=== PATIENT | male | born 1940 | race Caucasian/White ===

== ENCOUNTER 2020-01-10 12:13 | Inpatient (IN) | payer MEDICARE, SELFPAY ==
[2020-01-10] VITALS (40 sets, daily range): BP systolic 90–144; BP diastolic 56–92; PULSE 117–152; RESP 9–31; TEMP 36.5; O2SAT 90–96; BMI 32.5
--- NOTE | 2020-01-10 12:23 | ED_ITS ---
Entered by Cristiana Davis, acting as scribe for Josué Del Valle MD, [facility] [place] HPI - Chest Pain General: Chief Complaint: Chest Pain Stated Complaint: CP Time Seen by Provider: 01/10/20 12:23 Source: patient, family and RN notes reviewed Mode of arrival: ambulatory Limitations: no limitations History of Present Illness: HPI narrative: 79 yo male presents to ED with complaints of chest pain. The patient states he has no chest pain while lying down and it worsens when he stands up. He states he damn near passes out . He said it began mildly about a week ago and has been increasing since that time. 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 The patient had an IA 1 year ago and a stent was placed. He had an angiogram in August and when the dye was injected he went into a-fib and cardiac arrest, having to use the paddles. He said he had been doing fairly well until recently. He had a bad chest cold that he was treated for on Friday01.05.2020 and was diagnosed with pneumonia in L lower lung. He is still on Prednisone and Mucinex ER. The family states the patient has abdominal distention and has gained approximately 20 pounds in about 6 weeks. The patient states he has had difficulty passing gas and has constipation (his last BM 3 days ago). MD complaint: chest pain Pertinent past history: coronary artery disease, prior IA and other (ASHD, CHF, Ischemic Cardiomyopathy) Onset (ago): week(s) (1) Timing of current episode: episodic and increasing Prior episodes: Yes Onset: during exertion Pain location: substernal Pain radiation: none Severity: moderate Quality: sharp Relieving factors: rest Exacerbating factors: exertion Context: recent illness (pneumonia) Associated symptoms: Reports abdominal pain and leg edema; Deny dyspnea, fever(s) or palpitations Treatment prior to arrival: none Risk Factors: Coronary artery disease risk factors: hyperlipidemia and hypertension Thoracic aortic dissection risk factors: none Review of Systems General: Reports: 10 or more systems reviewed and unremarkable except in HPI and below Const: Denies: fever, chills or body aches Eyes: Reports: blind spots; Denies: change in vision or blurry vision ENMT: Denies: throat pain, enlarged tonsils, painful swallowing, hoarseness, mouth pain or swelling of lips/tongue Card: Reports: chest pain; Denies: palpitations, irregular heart rhythm, edema or swelling of feet/ankles Resp: Denies: shortness of breath, productive cough or non-productive cough GI: Reports: abdominal pain : Denies: flank pain, painful urination, urinary frequency, urinary urgency or urinary hesitancy Musc: Denies: neck pain, back pain or extremity swelling Skin/Breast: Denies: rash, itching or redness Neuro: Denies: headache, numbness in extremities or weakness in extremities Endo: Denies: excessive urination, excessive thirst or tired all the time PFSH ED PFSH: Medical History (Updated 01/11/20 @ 00:12 by Josué Del Valle MD, [facility] [place]) ASHD (arteriosclerotic heart disease) BPH (benign prostatic hyperplasia) Carotid stenosis, bilateral Chest pain Chewing tobacco use CHF (congestive heart failure) Chronic combined systolic and diastolic CHF Essential hypertension GERD (gastroesophageal reflux disease) Hyperlipidemia IBS (irritable bowel syndrome) Ischemic cardiomyopathy Paraphimosis SOB (shortness of breath) Spinal stenosis Stable angina Statin intolerance Surgical History S/P angioplasty with stent S/P cervical spinal fusion Family History Other Hypertension Social History Smoking and tobacco status: never smoked Alcohol intake: current Alcohol intake frequency: 0-2 Drinks per Day Alcohol type: beer Household members: spouse Marital status: service: No Current occupational status: retired Current gender identity: Male Physical Exam Const: COMMON NORMALS: no apparent distress, average body habitus, oriented x3, no limitations, healthy appearing, alert and well nourished HENMT: COMMON NORMALS: normocephalic, head/scalp atraumatic and moist oral mucous membranes HEAD & SCALP: normocephalic and atraumatic Eye: COMMON NORMALS: PERRL, EOMs intact bilaterally, conjunctivae normal and no scleral icterus CONJUNCTIVA: Yes conjunctivae normal PUPIL: Yes PERRL Neck/C-Spine: COMMON NORMALS: full ROM, supple, no meningeal signs, no JVD and no carotid bruits Chest: COMMONS NORMALS: inspection of chest normal and palpation of chest normal Resp: COMMON NORMALS: normal respiratory effort, no retractions, no use of accessory muscles, clear to auscultation bilaterally and percussion normal AUSCULTATION: clear to auscultation bilaterally PERCUSSION: percussion normal Cardio: COMMON NORMALS: no JVD, S1 normal heart sound, S2 normal heart sound, no gallops, no clicks, no murmurs, no rub and peripheral pulses 2+ throughout RATE: tachycardic RHYTHM: abnormal rhythm irregularly irregular HEART SOUNDS: S1 normal and S2 normal PERIPHERAL PULSES: pulses 2+ throughout GI: COMMON NORMALS: normal to inspection, nondistended, normoactive bowel sounds, soft to palpation, non-tender, no hepatosplenomegaly, no masses and no bruits PALPATION: Yes soft and Yes no hepatosplenomegaly : COMMON NORMALS: Yes no CVA tenderness BLADDER/KIDNEY EXAM: Yes no CVA tenderness Back/Pelvis: COMMON NORMALS: no CVA tenderness Extremity: COMMON NORMALS: normal to inspection, full ROM, normal capillary refill and no calf tenderness GENERAL: Yes edema (2+ bilaterally) Neuro: COMMON NORMALS: oriented x3 SENSORIUM/ORIENTATION: Yes alert MENINGEAL SIGNS: Yes no meningeal signs Skin: COMMON NORMALS: no rashes or lesions noted, no wounds, skin turgor normal, no jaundice, no petechiae and no mottling GENERAL SKIN EXAM: no rashes or lesions noted and turgor normal Course Consultations: Consultation #1: Dr. Nevarez, she kindly accepted the patient to her service. Vital Signs: Vital signs: Vital Signs Temperature 97.7 F 01/10/20 12:17 Pulse Rate 133 H 01/10/20 22:45 Respiratory Rate 01/10/20 20:45 Blood Pressure 90/58 01/10/20 20:45 Pulse Oximetry 92 01/10/20 22:45 MDM - Chest Pain MDM Narrative: Medical decision making narrative: 79-year-old gentleman who presented to the emergency department with chest pain. He also had some dizziness and generalized weakness. On evaluation he has A. fib with RVR, significantly elevated troponins. He needed to be on a diltiazem drip for control of his atrial fibrillation. He is admitted to the intensive care unit for further evaluation and management Medical Records: Attestation: I reviewed the patient's medical records. Lab Data: Attestation: I reviewed the patient's lab results. Labs: Lab Results 01/10/20 01/10/20 01/10/20 Range/Units 12:28 12:28 12:28 WBC 12.4 H (4.0-10.0) 10^3/ uL RBC 4.48 (4.1-5.3) 10^6/u L Hgb 13.4 (11.7-16.6) g/dL Hct 39.4 L (42.0-52.0) % MCV 87.9 (80-94) fL MCH 29.9 (28.0-34.0) pg MCHC 34.0 (30.0-36.0) g/dL RDW 12.5 (12.1-15.1) % Plt Count 221 (130-400) 10^3/c mm MPV 11.7 H (7.4-10.4) fL Neut % (Auto) 84.3 % Lymph % (Auto) 7.7 % Hernando % (Auto) 5.9 % Eos % (Auto) 0.1 % Baso % (Auto) 0.1 % Neut # (Auto) 10.5 H (1.8-7.7) 10^3/u L Lymph # (Auto) 1.0 (0.8-4.8) 10^3/u L Hernando # (Auto) 0.7 (0.2-0.9) 10^3/u L Eos # (Auto) 0.0 (0.0-0.8) 10^3/u L Baso # (Auto) 0.0 (0.0-0.1) 10^3/u L Nucleated RBC % (a uto) 0 % Nucleated RBCs # 0.0 /100WBC PT 16.10 H (10.5-13.3) SECO NDS INR 1.25 H (0.8-1.2) Sodium 129 L (136-145) mmol/L Potassium 4.5 (3.5-5.1) mmol/L Chloride 96 L (98-107) mmol/L Carbon Dioxide 22 (22-29) mmol/L Anion Gap 15.5 (5-19) BUN 29 H (8-23) mg/dL Creatinine 1.5 H (0.7-1.2) mg/dL Glucose 154 H (65-115) mg/dL Calcium 9.1 (8.5-10.5) mg/dL Total Bilirubin 0.7 (0.15-1.2) mg/dL AST 45 H (0-40) U/L ALT 91 H (0-41) U/L Alkaline Phosphata se 79 (40-130) IU/L Troponin T Baselin e (0-15) ng/mL Troponin T 120 Min nolvia (0-15) ng/mL [place] Troponin T (0-10) ABS# NT-Pro-B Natriuret Pep 6423 H (0-450) pg/mL Total Protein 5.8 L (6.6-8.7) g/dL Albumin 3.7 (3.5-5.2) g/dL Globulin 2.1 (1.3-4.6) g/dL Urine Color (Yellow) Urine Appearance (CLEAR) Urine pH (5-7) Ur Specific Gravit y (1.005-1.030) Urine Protein (Negative) Urine Glucose (UA) (Normal) Urine Ketones (Negative) Urine Occult Blood (Negative) Urine Nitrate (Negative) Urine Bilirubin (NEGATIVE) Urine Urobilinogen (Negative) mg/dL Ur Leukocyte Rebecca ase (Negative) 01/10/20 01/10/20 01/10/20 Range/Units 12:28 14:18 14:20 WBC (4.0-10.0) 10^3/ uL RBC (4.1-5.3) 10^6/u L Hgb (11.7-16.6) g/dL Hct (42.0-52.0) % MCV (80-94) fL MCH (28.0-34.0) pg MCHC (30.0-36.0) g/dL RDW (12.1-15.1) % Plt Count (130-400) 10^3/c mm MPV (7.4-10.4) fL Neut % (Auto) % Lymph % (Auto) % Hernando % (Auto) % Eos % (Auto) % Baso % (Auto) % Neut # (Auto) (1.8-7.7) 10^3/u L Lymph # (Auto) (0.8-4.8) 10^3/u L Hernando # (Auto) (0.2-0.9) 10^3/u L Eos # (Auto) (0.0-0.8) 10^3/u L Baso # (Auto) (0.0-0.1) 10^3/u L Nucleated RBC % (a uto) % Nucleated RBCs # /100WBC PT (10.5-13.3) SECO NDS INR (0.8-1.2) Sodium (136-145) mmol/L Potassium (3.5-5.1) mmol/L Chloride (98-107) mmol/L Carbon Dioxide (22-29) mmol/L Anion Gap (5-19) BUN (8-23) mg/dL Creatinine (0.7-1.2) mg/dL Glucose (65-115) mg/dL Calcium (8.5-10.5) mg/dL Total Bilirubin (0.15-1.2) mg/dL AST (0-40) U/L ALT (0-41) U/L Alkaline Phosphata se (40-130) IU/L Troponin T Baselin e 133 H* (0-15) ng/mL Troponin T 120 Min nolvia 119.0 H (0-15) ng/mL Delta Troponin T -14.0 L (0-10) ABS# NT-Pro-B Natriuret Pep (0-450) pg/mL Total Protein (6.6-8.7) g/dL Albumin (3.5-5.2) g/dL Globulin (1.3-4.6) g/dL Urine Color Yellow (Yellow) Urine Appearance Clear (CLEAR) Urine pH 5 (5-7) Ur Specific Gravit y 1.015 (1.005-1.030) Urine Protein Neg (Negative) Urine Glucose (UA) Norm (Normal) Urine Ketones Negative (Negative) Urine Occult Blood Neg (Negative) Urine Nitrate Negative (Negative) Urine Bilirubin Neg (NEGATIVE) Urine Urobilinogen Norm (Negative) mg/dL Ur Leukocyte Rebecca ase Negative (Negative) Imaging Data^: Other Xray: Radiologist's impression: [address] [place] [address] XRay Report Signed Patient: Luis Matos #: [id number] : [id number]#:[id number] Age/Sex: 79 / MADM Date: 01/10/20 Loc: ERRoom/Bed: Attending Dr: Ordering Provider/Ordering MD: Josué Del Valle MD, [facility] [place] Date of Service: 01/10/20 Procedure(s): XR abdomen 1V* [id number] Accession Number(s): [id number] Report Number: [id number] WS: [id number] XR abdomen 1V* [id number] REASON FOR EXAM: constipation FINDINGS: Fecal stasis in the right colon. And transverse colon. Degenerate changes of the lumbar spine. No air-fluid levels are seen. The pelvis shows degenerate changes in both hip joints. XR/XR abdomen 1V* [id number] IMPRESSION: Mild fecal stasis. Dictated By:Westley Be DO Signed By:Westley Be DOSigned Date/Time:01/10/20 1305 DD/ CXR: Radiologist's impression: [address] [address] XRay Report Signed Patient: Luis Matos #: [id number] : [id number]#:[id number] Age/Sex: 79 / MADM Date: 01/10/20 Loc: ERRoom/Bed: Attending Dr: Ordering Provider/Ordering MD: Josué Del Valle MD, [facility] [place] Date of Service: 01/10/20 Procedure(s): XR chest 1V portable [id number] Accession Number(s): [id number] Report Number: [id number] WS: [id number] XR chest 1V portable [id number] REASON FOR EXAM: chest pain FINDINGS: Cardiomegaly changes. The lung aaron are hyper aerated consistent with chronic obstructive pulmonary disease. No pneumonia, pleural effusion, pulmonary edema, are pneumothorax. No osseous abnormalities. The hilum and apices are normal. XR/XR chest 1V portable [id number] IMPRESSION: Cardiomegaly. Dictated By:Westley Be DO Signed By:Westley Be DOSigned Date/Time:01/10/20 1304 DD/ EKG Data^: EKG 1: Attestation: I personally reviewed and interpreted this EKG as follows: EKG interpretation date: 01/10/20 EKG interpretation time: 12:25 Prior EKG tracings: not available for review Interpretation: Today is 143. Incomplete right bundle branch block. No ST changesAtrial fibrillation with rapid ventricular response. EKG 2: Attestation: I personally reviewed and interpreted this EKG as follows: EKG interpretation date: 01/10/20 EKG interpretation time: 14:20 Interpretation: Unchanged from earlier today Discharge Plan Discharge Patient Disposition: Admitted As Inpatient Admit Provider: Najma Nevarez Clinical Impression: Atrial fibrillation with RVR, Chest pain, Elevated troponin Condition: Stable Interventions: ED Discharge Assessment Last Done: 01/10/20 15:24 Discharge Date/Time: 01/10/20 15:45 Coding Level of Care Code ED Roof Plumber for Chg Fwd Exam Comprehensive The documentation recorded by the Ryan frias Valerie R, accurately reflects the service I personally performed and the decisions made by Ivon fernández Adegoke I, MD, [facility] Jan 10, 2020 12:13
--- NOTE | 2020-01-10 12:39 | XR_ITS ---
WS: [id number] XR chest 1V portable [id number] REASON FOR EXAM: chest pain FINDINGS: Cardiomegaly changes. The lung aaron are hyper aerated consistent with chronic obstructive pulmonary disease. No pneumonia, pleural effusion, pulmonary edema, are pneumothorax. No osseous abnormalities. The hilum and apices are normal. XR/XR chest 1V portable [id number] IMPRESSION: Cardiomegaly.
--- NOTE | 2020-01-10 12:39 | ECG_ITS ---
Measurements Intervals [place] Rate: 143 P: [place]: 0 QRS: 139 QRSD: 108 T: 19 QT: 319 QTc: 493 ATRIAL FIBRILLATION WITH RAPID VENTRICULAR RESPONSE RIGHT AXIS DEVIATION [QRS AXIS > 100] LOW QRS VOLTAGE [QRS DEFLECTION < 0.5/1.0 mV IN LIMB/CHEST LEADS] INCOMPLETE RIGHT BUNDLE BRANCH BLOCK [90+ ms QRS DURATION, TERMINAL R IN V1/V2, 40+ ms S IN I/aVL/V4/V5/V6] ANTEROSEPTAL MYOCARDIAL INFARCTION , OF INDETERMINATE AGE [40+ ms Q WAVE IN V1- V4] Compared to ECG 01/08/2019 09:40:28 Right-axis deviation now present Low QRS voltage now present Sinus rhythm no longer present Atrial abnormality no longer present Myocardial infarct finding still present Electronically Signed On 01-10-2020 16:04:36 [employer] by Miguel Angel Donaldson M.D. [email or web address]
--- NOTE | 2020-01-10 12:39 | XR_ITS ---
WS: [id number] XR abdomen 1V* [id number] REASON FOR EXAM: constipation FINDINGS: Fecal stasis in the right colon. And transverse colon. Degenerate changes of the lumbar spine. No air-fluid levels are seen. The pelvis shows degenerate changes in both hip joints. XR/XR abdomen 1V* [id number] IMPRESSION: Mild fecal stasis.
[2020-01-10 12:54] LABS: Basophils % 0.1 %; Eosinophils % 0.1 %; Hematocrit 39.4 % (42.0-52.0); Hemoglobin 13.4 g/dL (11.7-16.6); Lymphocytes % 7.7 %; Mean Corpuscular Hemoglobin 29.9 pg (28.0-34.0); Mean Corpuscular Volume 87.9 fL (80-94); Mean Platelet Volume 11.7 fL (7.4-10.4); Monocytes # 0.7 10^3/uL (0.2-0.9); Monocytes % 5.9 %; Neutrophils # 10.5 10^3/uL (1.8-7.7); Neutrophils % 84.3 %; Nucleated Red Blood Cells % 0 %; Platelet Count 221 10^3/cmm (130-400); Red Blood Count 4.48 10^6/uL (4.1-5.3); Red Cell Distribution Width 12.5 % (12.1-15.1); White Blood Count 12.4 10^3/uL (4.0-10.0)
[2020-01-10 13:04] LABS: INR 1.25 (0.8-1.2)
[2020-01-10 13:14] LABS: Troponin(5th) Baseline 133 ng/mL (0-15)
--- NOTE | 2020-01-10 13:15 | PC.NURSE ---
baseline trop 133
[2020-01-10 13:20] LABS: Alanine Aminotransferase 91 U/L (0-41); Albumin Level 3.7 g/dL (3.5-5.2); Alkaline Phosphatase 79 IU/L (40-130); Anion Gap 15.5 (5-19); Aspartate Amino Transferase 45 U/L (0-40); Blood Urea Nitrogen 29 mg/dL (8-23); Calcium 9.1 mg/dL (8.5-10.5); Carbon Dioxide 22 mmol/L (22-29); Chloride 96 mmol/L (98-107); Globulin 2.1 g/dL (1.3-4.6); Glucose 154 mg/dL (65-115); NT Pro B Type Natriuretic Pept 6423 pg/mL (0-450); Potassium 4.5 mmol/L (3.5-5.1); Sodium 129 mmol/L (136-145); Total Bilirubin 0.7 mg/dL (0.15-1.2); Total Protein 5.8 g/dL (6.6-8.7)
[2020-01-10 14:34] LABS: Add Urine Microscopic? NO
--- NOTE | 2020-01-10 14:39 | ECG_ITS ---
Measurements Intervals [place] Rate: 138 P: [place]: 0 QRS: 207 QRSD: 120 T: 30 QT: 331 QTc: 503 ATRIAL FIBRILLATION WITH RAPID VENTRICULAR RESPONSE INDETERMINATE AXIS POSSIBLE RIGHT VENTRICULAR CONDUCTION DELAY [RSR (QR) IN V1/V2] ANTEROSEPTAL MYOCARDIAL INFARCTION , OF INDETERMINATE AGE [40+ ms Q WAVE IN V1-V4] Compared to ECG 01/08/2019 09:40:28 Indeterminate axis now present Sinus rhythm no longer present Incomplete right bundle-branch block no longer present Atrial abnormality no longer present Myocardial infarct finding still present Electronically Signed On 01-10-2020 16:07:10 INDUSTRIAL SAFETY AND HEALTH TECHNICIAN by Miguel Angel Donaldson M.D. [email or web address]
[2020-01-10 14:53] LABS: Bilirubin Urine Neg (NEGATIVE); Blood Urine Neg (Negative); Glucose Urine UA Norm (Normal); Ketones Urine Negative (Negative); Nitrate Urine Negative (Negative); Protein Urine Neg (Negative); Specific Gravity, Urine 1.015 (1.005-1.030); Urine Appearance Clear (CLEAR); Urine Color Yellow (Yellow); pH Urine 5 (5-7)
[2020-01-10 14:54] LABS: Leukocyte Esterase Urine Negative (Negative); Urobilinogen Urine Norm (Negative)
[2020-01-10] MEDS: morphine 4 mg/mL SDV 1 mL 2 MG IVP (15:14)
--- NOTE | 2020-01-10 15:31 | US_ITS ---
WS: [id number] US abdomen lmt fluid [id number] REASON FOR EXAM: distension FINDINGS: Generalized ascites is seen throughout the abdomen particularly in the diaphragmatic area o n the right and the left lower quadrant of the abdomen. US/US abdomen lmt fluid [id number] IMPRESSION: Generalized ascites.
--- NOTE | 2020-01-10 15:42 | P.HP_ITS ---
Providers/Chief Complaint Admitting Physician: Najma Nevarez MD Primary Care Provider: Johnnie Avendano Chief Complaint: Afib with RVR;Elevated trop;CHF Exacerbation History of Present Illness Luis Matos is a 79 year old male with PMHx of Chronic combined systolic and diastolic CHF, CAD status post stenting, COPD (not oxygen dependent), Carotid artery disease, Ischemic cardiomyopathy, Hyperlipidemia, CKD stage 2-3, HTN, BROWN (not on CPAP); presents from home accompanied by his for evaluation of worsening shortness of breath with minimal exertion, increased abdominal distention, lower extremity edema and chest discomfort for the past 2 days. Patient is very hard of hearing so at bedside provides much of his history. Collateral information obtained from review of medical record. Patient is not oxygen dependent at baseline, follows up with Dr. 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 Noted to have had a cath in September 2019 which was complicated by cardiac arrest when RCA was injected, patient developed V. fib, required CPR and defibrillation and subsequently developed A. fib. He did convert to normal sinus rhythm and is on metoprolol. He is on aspirin and Plavix but no other anticoagulation. states that approximately a week ago he was diagnosed with left-sided pneumonia and has been on Levaquin for treatment of this. Patient does not weigh daily but tries to keep track of his edema. He has been taking Lasix daily but every so often if he feels dry he will take Lasix every other day. Last dose of Lasix was taken yesterday. is his primary caregiver. Denies any recent falls; does not use a walker or cane for ambulation. has been sick with what sounds like URI symptoms. Last echo was in February 2019 showing an ejection fraction of 35 to 40% with grade 2 diastolic dysfunction. He was found to be in A. fib with RVR with heart rates in the 140s. Received a dose of Cardizem with continued RVR so has been started on a Cardizem drip currently running at 20 mg/hr. He has some leukocytosis with a white count of 12.4, sodium of 129, BUN of 29, creatinine of 1.5, BNP of over 6400, INR of 1.25, baseline troponin of 133; chest x-ray shows cardiomegaly with no other acute findings. He is being admitted for management of atrial fibrillation with RVR as well as acute CHF exacerbation. Review of Systems Const: Reports: change in appetite (decreased appetite) and fatigue; Denies: fever or chills Eyes: Denies: change in vision ENMT: Reports: other (chronically hard of hearing) Card: Reports: swelling of feet/ankles; Denies: chest pain or lightheadedness Resp: Reports: shortness of breath; Denies: productive cough, wheezing or coughing up blood GI: Reports: abdominal pain, constipation (chronic) and other (abdominal fullness); Denies: nausea, vomiting, vomiting blood or blood in stool : Reports: difficulty urinating (intermittently self catheterizes); Denies: painful urination or urinary frequency Musc: Denies: back pain Skin/Breast: Denies: rash Neuro: Reports: weakness in extremities; Denies: numbness in extremities or frequent falls Psych: Denies: anxiety Medications/Allergies Home Medications Medication Instructions Recorded Confirmed Last Taken Type Probiotic 2 cap PO DAILY 01/10/20 01/10/20 01/09/20 History levofloxacin 750 mg PO DAILY 01/10/20 01/10/20 01/10/20 07:30 History prednisone See Rx Instructions .ROUTE .COMPLEX 01/10/20 01/10/20 01/10/20 07:30 History 30 MG Allergies Allergy/AdvReac Type Severity Reaction Status Date / Time No Known Allergies Allergy Unverified 12/07/19 14:25 PFSH Acute PFSH: Medical History (Updated 01/10/20 @ 16:43 by Najma Nevarez MD) ASHD (arteriosclerotic heart disease) BPH (benign prostatic hyperplasia) Carotid stenosis, bilateral Chest pain Chewing tobacco use CHF (congestive heart failure) Chronic combined systolic and diastolic CHF Essential hypertension GERD (gastroesophageal reflux disease) Hyperlipidemia IBS (irritable bowel syndrome) Ischemic cardiomyopathy Paraphimosis SOB (shortness of breath) Spinal stenosis Stable angina Statin intolerance Surgical History S/P angioplasty with stent S/P cervical spinal fusion Family History Other Hypertension Social History Smoking and tobacco status: never smoked Alcohol intake: current Alcohol intake frequency: 0-2 Drinks per Day Alcohol type: beer Household members: spouse Marital status: service: No Current occupational status: retired Current gender identity: Male Vitals/I&O/Wt Last Vital Signs Temp 97.7 F 01/10/20 12:17 Pulse 135 H 01/10/20 15:24 Resp 26 H 01/10/20 15:24 BP 105/73 01/10/20 15:24 Pulse Ox 95 01/10/20 15:24 01/10/20 01/10/20 01/10/20 06:59 14:59 22:59 Intake Total 12.234 / Balance / Weight last 48 hrs Weight 108.862 kg Physical Exam Const: COMMON NORMALS: no apparent distress and oriented x3 GENERAL APPEARANCE: cooperative and comfortable NUTRITIONAL APPEARANCE: obese ORIENTATION/CONSCIOUSNESS: Yes awake HENMT: COMMON NORMALS: normocephalic, head/scalp atraumatic and moist oral mucous membranes HEAD & SCALP: normocephalic and atraumatic GENERAL EAR: hearing grossly impaired Laterality: diffuse Eye: COMMON NORMALS: PERRL, EOMs intact bilaterally and conjunctivae normal CONJUNCTIVA: Yes conjunctivae normal PUPIL: Yes PERRL Neck/C-Spine: COMMON NORMALS: full ROM GENERAL: Yes normal visual inspectio n and Yes trachea midline Resp: COMMON NORMALS: normal respiratory effort, no retractions and no use of accessory muscles EFFORT & INSPECTION: Yes able to speak in complete sentences, Yes symmetric chest movement and No tachypneic AUSCULTATION: crackles Cardio: COMMON NORMALS: S1 normal heart sound, S2 normal heart sound and no murmurs RATE: tachycardic RHYTHM: abnormal rhythm (atrial fibrillation with RVR) irregularly irregular HEART SOUNDS: S1 normal and S2 normal GI: COMMON NORMALS: soft to palpation and non-tender INSPECTION: Yes abdominal distension and Yes central obesity AUSCULTATION: Yes normoactive bowel sounds PALPATION: Yes soft, No tender, No guarding and No rigid Extremity: COMMON NORMALS: normal to inspection and full ROM GENERAL: Yes edema (1+ pitting edema of bilateral LE) Neuro: COMMON NORMALS: oriented x3, moves all extremities, no focal motor deficits and no sensory deficits noted Psych: COMMON NORMALS: mental status grossly normal, thought process normal, cooperative, affect normal and speech normal SPEECH: Yes normal speech THOUGHT PROCESS: normal thought process Skin: COMMON NORMALS: no rashes or lesions noted, no jaundice, no petechiae and no mottling GENERAL SKIN EXAM: no rashes or lesions noted Data : 01/10/20 12:28 01/10/20 12:28 A&P Assessment and plan (1) Atrial fibrillation with RVR: -Presented with A. fib with RVR with heart rates in the 140s; suspect that this was triggered by acute CHF exacerbation -From history and review of medical record seems to be paroxysmal -Currently on Cardizem drip, titrate as needed for optimal heart rate control -Resume metoprolol -Telemetry monitoring -Monitor vital signs -Echo done 02/2019: EF=35-40%, G2DD, mild pulmonary HTN (50), mild MR, mild- moderate TR Status: Acute Code(s): I48.91 - Unspecified atrial fibrillation (2) CHF (congestive heart failure): -Noted to have 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 as evidenced by increased shortness of breath, lower extremity edema, abdominal distention, elevated BNP -We will start on IV diuresis with Bumex given renal impairment -Daily weights, monitor ins and outs -Monitor vital signs -Monitor renal function and electrolytes with diuresis -Echo done 02/2019: EF=35-40%, G2DD, mild pulmonary HTN (50), mild MR, mild- moderate TR -troponin (baseline)-133; suspect demand ischemia secondary to CHF exacerbation Status: Acute Qualifiers: Heart failure type: combined systolic and diastolic Heart failure chronicity: acute on chronic Qualified Code(s): I50.43 - Acute on chronic combined systolic (congestive) and diastolic (congestive) heart failure Code(s): I50.9 - Heart failure, unspecified (3) BPH (benign prostatic hyperplasia): -Has known history of BPH with intermittent self-catheterization though has not needed to do this in quite some time -Place Webber catheter for accurate ins and outs given need for aggressive IV diuresis; assess daily for removal -Resume Flomax and finasteride Status: Acute Qualifiers: Lower urinary tract symptom presence: symptoms present Lower urinary tract symptom detail: urinary retention Qualified Code(s): N40.1 - Benign prostatic hyperplasia with lower urinary tract symptoms; R33.8 - Other retention of urine Code(s): N40.0 - Benign prostatic hyperplasia without lower urinary tract symptoms Additional A&P Information -HTN -hx of CAD s/p stenting, ischemic cardiomyopathy; resume ASA, Plavix -COPD, not oxygen dependent -Bilateral carotid artery stenosis -Hyperlipidemia; intolerant of statins -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; baseline Cr around 1-1.3; avoid IVF due to acute CHF exacerbation -GERD; on PPI -recently diagnosed pneumonia; has been on Levaquin; noted QTc prolongation, hold this -fall precautions, up with assist -cardiac diet as tolerated -GI ppx with PPI -DVT ppx with heparin -Dispo: home, is his primary caregiver -Code status: FULL code -ICU admit as CSU overflow Attestations Medical Necessity Statement*: Luis Rico Matos's hospital stay will require greater than 2 midnights for management of acute CHF exacerbation requiring IV diuresis as well as treatment of A. fib with RVR, currently requiring Cardizem drip. Time Spent in Patient Care: Greater than 35 minutes (>than 50% of time spent in counselling and/or direct pt care on unit) . Coding Level of Care Code Acute Newspaper Photographer for Chg Fwd Diagnoses Atrial fibrillation with RVR I48.91 CHF (congestive heart failure) I50.43 Heart failure type: combined systolic and diastolic Heart failure chronicity: acute on chronic BPH (benign prostatic hyperplasia) N40.1; R33.8 Lower urinary tract symptom presence: symptoms present Lower urinary tract symptom detail: urinary retention
[2020-01-10] MEDS: heparin 5,000 unit/mL INJ 1 mL 5000 UNIT SUBCUT (16:28)
[2020-01-10] MEDS: bumetanide 0.25 mg/mL SDV 10 mL 1 MG IV (16:28)
[2020-01-10] MEDS: lactobacillus 1 Tablet 1 TAB PO (17:04)
[2020-01-10] MEDS: metoprolol tartrate 50 mg Tablet PO (17:05)
--- NOTE | 2020-01-10 18:39 | ECG_ITS ---
Measurements Intervals [place] Rate: 135 P: HI: 0 QRS: 112 QRSD: 105 T: 22 QT: 291 QTc: 437 ATRIAL FIBRILLATION WITH RAPID VENTRICULAR RESPONSE MARKED RIGHT AXIS DEVIATION [QRS AXIS > 100] LOW QRS VOLTAGE [QRS DEFLECTION < 0.5/1.0 mV IN LIMB/CHEST LEADS] INCOMPLETE RIGHT BUNDLE BRANCH BLOCK [90+ ms QRS DURATION, TERMINAL R IN V1/V2, 40+ ms S IN I/aVL/V4/V5/V6] ANTEROSEPTAL MYOCARDIAL INFARCTION, PROBABLY RECENT Compared to ECG 01/10/2020 14:20:02 Right-axis deviation now present Low QRS voltage now present Incomplete right bundle-branch block now present Indeterminate axis no longer present Myocardial infarct finding still present Electronically Signed On 01-11-2020 18:05:59 VOCATIONAL TRAINING DIRECTOR by Dory Ramirez M.D. [id number]
[2020-01-10 19:06] LABS: Troponin 5 6HR 112.1 ng/mL (0-15); Troponin 5 6HR Delta -20.9 ng/L (0-12)
[2020-01-10] MEDS: BuSPIRONE 5 mg Tablet PO (21:21)
[2020-01-10] MEDS: atorvastatin 40 mg Tablet PO (21:21)
[2020-01-11] VITALS (62 sets, daily range): BP systolic 90–161; BP diastolic 62–107; PULSE 76–172; RESP 10–32; TEMP 36.6; O2SAT 89–97; BMI 32.5
[2020-01-11] MEDS: digoxin 250 mcg/ml INJ 2 mL IVP (01:22)
[2020-01-11 04:56] LABS: Basophils % 0.2 %; Eosinophils % 0.1 %; Hematocrit 39.9 % (42.0-52.0); Hemoglobin 13.5 g/dL (11.7-16.6); Lymphocytes # 1.6 10^3/uL (0.8-4.8); Lymphocytes % 14.3 %; Mean Corpuscular HGB Conc 33.8 g/dL (30.0-36.0); Mean Corpuscular Hemoglobin 30.9 pg (28.0-34.0); Mean Corpuscular Volume 91.3 fL (80-94); Mean Platelet Volume 11.6 fL (7.4-10.4); Monocytes # 1.2 10^3/uL (0.2-0.9); Neutrophils # 8.1 10^3/uL (1.8-7.7); Neutrophils % 72.4 %; Nucleated Red Blood Cells % 0 %; Platelet Count 175 10^3/cmm (130-400); Red Blood Count 4.37 10^6/uL (4.1-5.3); Red Cell Distribution Width 12.5 % (12.1-15.1); White Blood Count 11.2 10^3/uL (4.0-10.0)
--- NOTE | 2020-01-11 05:04 | ECG_ITS ---
Measurements Intervals [place] Rate: 102 P: [place]: 0 QRS: 122 QRSD: 109 T: 52 QT: 339 QTc: 442 ATRIAL FIBRILLATION WITH RAPID VENTRICULAR RESPONSE MARKED RIGHT AXIS DEVIATION [QRS AXIS > 100] LOW QRS VOLTAGE [QRS DEFLECTION < 0.5/1.0 mV IN LIMB/CHEST LEADS] INCOMPLETE RIGHT BUNDLE BRANCH BLOCK [90+ ms QRS DURATION, TERMINAL R IN V1/V2, 40+ ms S IN I/aVL/V4/V5/V6] ANTEROSEPTAL MYOCARDIAL INFARCTION [40+ ms Q WAVE IN V1-V4], OF INDETERMINATE AGE Compared to ECG 01/10/2020 14:20:02 Right-axis deviation now present Low QRS voltage now present Incomplete right bundle-branch block now present Indeterminate axis no longer present Myocardial infarct finding still present Electronically Signed On 01-12-2020 17:28:56 SENIOR JAVA PROGRAMMER by Dory Ramirez M.D. [id number]
[2020-01-11 05:18] LABS: Anion Gap 16.2 (5-19); Blood Urea Nitrogen 29 mg/dL (8-23); Calcium 8.7 mg/dL (8.5-10.5); Carbon Dioxide 24 mmol/L (22-29); Chloride 98 mmol/L (98-107); Glucose 112 mg/dL (65-115); Osmolality Calculated 276 mOsm/kg (285-295); Potassium 4.2 mmol/L (3.5-5.1); Sodium 134 mmol/L (136-145)
--- NOTE | 2020-01-11 05:24 | P.EN_ITS ---
Event Note Event Note: Brandon puentes called at 5 am. Patient was overnight with A fib with RVR with HR 140s-150s while on cardizem infusion @ 20. BP 90/60 at 1 am, previously also ordered for metoprolol 50mg BID, received digoxin 250mcg at 1 am. At 5 am, brandon puentes called after noted to be in pulseless arrest. Telemetry rhy thm appears c/w Torsades. Had chest compressions x 3 min, epinephrine x 1, shock @ 120J x 1, Amiodarone 150 once pulse restored. Had ROSC at 3 min. Alert, awake and oriented post event. C/o central chest pain (new) after CPR. 12 lead EKG with A fib with HR 90s. BP 160/85mmhg. Amiodarone infusion started. Intially was planned to intubate but held off after patient noted to be alert, awake and comfortable. Cardiology consult placed- discussed with Dr. Ramirez Check CMP and Mag CXR to r/o rib fracture updated. Event Notes Attestations Time Spent in Patient Care: 16 - 35 minutes
[2020-01-11] MEDS: heparin 5,000 unit/mL INJ 1 mL 5000 UNIT SUBCUT (05:49)
[2020-01-11 06:26] LABS: Magnesium 2.5 mg/dL (1.7-2.3)
--- NOTE | 2020-01-11 06:50 | ECG_ITS ---
Measurements Intervals [place] Rate: 84 P: 48 SC: 169 QRS: 106 QRSD: 109 T: -3 QT: 400 QTc: 473 SINUS RHYTHM WITH FREQUENT SUPRAVENTRICULAR PREMATURE COMPLEXES MARKED RIGHT AXIS DEVIATION [QRS AXIS > 100] LOW QRS VOLTAGE [QRS DEFLECTION < 0.5/1.0 mV IN LIMB/CHEST LEADS] INCOMPLETE RIGHT BUNDLE BRANCH BLOCK ANTEROSEPTAL MYOCARDIAL INFARCTION, OF INDETERMINATE AGE Compared to ECG 01/10/2020 14:20:02 Right-axis deviation now present Low QRS voltage now present Incomplete right bundle-branch block now present Atrial fibrillation no longer present Indeterminate axis no longer present Myocardial infarct finding still present Electronically Signed On 01-11-2020 16:58:43 CLAIM APPROVER by Dory Ramirez M.D. [id number]
[2020-01-11] MEDS: acetaminophen 325 mg Tablet 650 MG PO ×3 (07:27→20:13)
--- NOTE | 2020-01-11 08:12 | P.CONIM_ITS ---
Providers/Reason For Consult Consulting Physican/Specialty*: Dr. Ramirez, cardiology Reason for Consult*: Status post cardiac arrest Attending Physician: Najma Nevarez MD Primary Care Provider: Johnnie Avendano History of Present Illness History of Present Illness Luis Matos is a 79 year old man with history of coronary artery disease. 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 In December of 2018 he underwent stenting of ostial LAD. He did not have disease of the left main, ramus, circumflex or right coronary artery. He underwent coronary angiography via the right radial artery in Sep 2019 for persistent symptoms. The left main, ramus and circumflex were again normal. There was restenosis of the LAD stent just at the ostium of the LAD. Upon injection of the right coronary artery the patient had a ventricular fibrillation arrest. He underwent CPR and then shocking with episcopal of a rhythm. Initially he was in atrial fibrillation.No intervention was done. He had a complicated post code recovery requiring pressors as well as altered mental status. Later on in the hospitalization he converted back to sinus rhythm. After a very long discussion with the patient and his regarding single-vessel CABG/high risk LAD intervention, it was decided to try medical therapy first. His other medical problems include Chronic combined systolic and diastolic CHF (left ventricular ejection fraction of 35 to 40%), COPD (not oxygen dependent), Hyperlipidemia, CKD stage 2-3, HTN, BROWN (not on CPAP). He presented from home with CC of worsening shortness of breath, increased abdominal distention, lower extremity edema and weight gain (218-240 lb). Approximately a week ago he was diagnosed with left-sided pneumonia and was treated with Levaquin. His symptoms started shortly thereafter. His is his primary caregiver. He was found to be in A. fib with RVR with heart rates in the 140s. He had one episode of chest discomfort for which he took 1 nitroglycerin about 2 days back. He was admitted for management of atrial fibrillation with rapid ventricular response and decompensated congestive heart failure. After hospitalization he was started on Cardizem drip and later on at around 1 AM he received to 50 mcg of digoxin. At around 4:50 earlier this morning patient went into ventricular fibrillation and HYACINTH ALDANA was called. He was coded for about 2 minutes and received shock with 120 J (from what it appears with no change in his rhythm), epinephrine x1, amiodarone 150?1. He also received 2 g of magnesium as the initial rhythm was thought to be torsades. There was return of spontaneous circulation and patient is back to his baseline. He was started on amiodarone drip and I have been called to assist in further management. At the time of evaluation patient complains of leg cramps and retrosternal chest discomfort (post code) which is reproducible on palpation. Review of Systems Const: Denies: fever, chills or fatigue Eyes: Denies: change in vision ENMT: Denies: throat pain, bleeding gums or nose bleeds Card: Denies: palpitations, lightheadedness, syncope or pre-syncope Resp: Denies: productive cough or non-productive cough GI: Denies: abdominal pain, nausea, vomiting, vomiting blood, diarrhea, constipation or blood in stool : Denies: painful urination or blood in urine Musc: Denies: back pain, joint pain or muscle weakness Skin/Breast: Denies: rash Neuro: Denies: dizziness Psych: Denies: anxiety or depression Endo: Denies: tired all the time Alexis/Lymph: Denies: easy bruising or easy bleeding Meds/Allergies Home Medications and Allergies Home Medications Medication Instructions Recorded Confirmed Type amlodipine 5 mg tablet 10 mg PO DAILY tab 12/07/19 01/10/20 History aspirin 81 mg tablet,delayed 81 mg PO DAILY tab 12/07/19 01/10/20 History release buspirone 5 mg tablet 5 mg PO TID 12/07/19 01/10/20 History clopidogrel 75 mg tablet 75 mg PO DAILY tab 12/07/19 01/10/20 History cyclobenzaprine 10 mg tablet 10 mg PO TID PRN 12/07/19 01/10/20 History enalapril maleate 20 mg tablet 20 mg PO DAILY tab 12/07/19 01/10/20 History furosemide 40 mg tablet 40 mg PO QAM 12/07/19 01/10/20 History isosorbide mononitrate 30 mg 30 mg PO QAM 12/07/19 01/10/20 History tablet,extended release 24 hr metoprolol tartrate 50 mg tablet 50 mg PO BID 12/07/19 01/10/20 History nitroglycerin 0.4 mg sublingual 0.4 mg SUBLINGUAL Q5M PRN 12/07/19 01/10/20 History tablet pantoprazole 40 mg tablet,delayed 40 mg PO QAM 12/07/19 01/10/20 History release simvastatin 40 mg tablet 40 mg PO DAILY tab 12/07/19 01/10/20 History tamsulosin 0.4 mg capsule 0.4 mg PO BID cap 12/07/19 01/10/20 History Probiotic 2 cap PO DAILY 01/10/20 01/10/20 History levofloxacin 750 mg PO DAILY 01/10/20 01/10/20 History prednisone See Rx Instructions .ROUTE .COMPLEX 01/10/20 01/10/20 History Allergies Allergy/AdvReac Type Severity Reaction Status Date / Time No Known Allergies Allergy Unverified 12/07/19 14:25 Current Medications Current Medications Generic Name Dose Route Start Last Admin Trade Name Freq PRN Reason Stop Dose Admin Acetaminophen 650 mg 01/10/20 16:09 01/11/20 07:27 Tylenol PO 650 mg Q6H PRN Administration Mild/Mod Pain Or Temp >/= 101 Atorvastatin Calcium 40 mg 01/10/20 21:00 01/10/20 21:21 Lipitor PO 40 mg BEDTIME BEATRIZ Administration Bumetanide 1 mg 01/10/20 16:09 01/11/20 05:49 Bumex IV Not Given Q12H BEATRIZ Buspirone HCl 5 mg 01/10/20 21:00 01/10/20 21:21 Buspar PO 5 mg TID BEATRIZ Administration Heparin Sodium (Beef Lung) 5,000 unit 01/10/20 16:09 01/11/20 05:49 Heparin SUBCUT 5,000 unit Q12H BEATRIZ Administration Amiodarone HCl 900 mg/ 518 mls @ 0 mls/hr 01/11/20 05:15 01/11/20 05:23 Dextrose/ IV Miscellaneous IV 1 mg/min Supplies .Q0M BEATRIZ 34.5 mls/hr Administration Protocol Per Protocol Lactobacillus Acidophilus 1 tab 01/10/20 18:00 01/10/20 17:04 Floranex PO 1 tab BID BEATRIZ Administration Metoprolol Tartrate 50 mg 01/10/20 18:00 01/10/20 17:05 Lopressor PO 50 mg BID BEATRIZ Administration PFSH Acute PFSH: Medical History (Updated 01/11/20 @ 11:19 by Dory Ramirez MD) ASHD (arteriosclerotic heart disease) BPH (benign prostatic hyperplasia) Carotid stenosis, bilateral Chest pain Chewing tobacco use CHF (congestive heart failure) Chronic combined systolic and diastolic CHF Essential hypertension GERD (gastroesophageal reflux disease) Hyperlipidemia IBS (irritable bowel syndrome) Ischemic cardiomyopathy Paraphimosis SOB (shortness of breath) Spinal stenosis Stable angina Statin intolerance Surgical History S/P angioplasty with stent S/P cervical spinal fusion Family History Other Hypertension Social History Smoking and tobacco status: never smoked Alcohol intake: current Alcohol intake frequency: 0-2 Drinks per Day Alcohol type: beer Household members: spouse Marital status: service: No Current occupational status: retired Current gender identity: Male Vitals/I&O/Wt Last Vital Signs Temp 97.7 F 01/10/20 12:17 Pulse 142 H 01/11/20 04:30 Resp 21 H 01/11/20 04:30 BP 137/83 01/11/20 04:30 Pulse Ox 94 01/11/20 04:30 01/10/20 01/11/20 01/11/20 22:59 06:59 14:59 Intake Total 711 / 723.234 125 / 848.234 Output Total 3000 / 3000 Balance 711 / 723.234 -2875 / -2151.766 Weight last 48 hrs Weight 240 lb Weight 240 lb Physical Exam Const: COMMON NORMALS: no apparent distress, average body habitus, oriented x3, alert and well nourished GENERAL APPEARANCE: cooperative, comfortable, well kempt and well developed ORIENTATION/CONSCIOUSNESS: Yes oriented to person, Yes oriented to place and Yes oriented to time HENMT: COMMON NORMALS: normocephalic, head/scalp atraumatic, external nose normal and moist oral mucous membranes HEAD & SCALP: normocephalic and atraumatic NOSE: external nose normal Eye: COMMON NORMALS: PERRL, EOMs intact bilaterally and conjunctivae normal CONJUNCTIVA: Yes conjunctivae normal SCLERA: sclerae normal PUPIL: Yes PERRL Neck/C-Spine: COMMON NORMALS: supple, no JVD and thyroid normal; negative for no carotid bruits THYROID: thyroid normal Lymph: LYMPHATIC: No no lymphadenopathy noted Chest: COMMONS NORMALS: inspection of chest normal CHEST: Yes symmetrical chest wall rise Resp: COMMON NORMALS: normal respiratory effort, no use of accessory muscles, clear to auscultation bilaterally and percussion normal EFFORT & INSPECTION: Yes able to speak in complete sentences and No tachypneic AUSCULTATION: clear to auscultation bilaterally, no crackles, no rales, no rhonchi and no wheezes PERCUSSION: percussion normal Cardio: COMMON NORMALS: no JVD, regular rate, regular rhythm, S1 normal heart sound, S2 normal heart sound and peripheral pulses 2+ throughout; negative for no gallops and negative for no clicks JUGULAR VENOUS DISTENTION: no JVD PALPATION: normal PMI, no heave, no palpable S3, no palpable S4 and no thrill RATE: regular rate RHYTHM: regular rhythm HEART SOUNDS: S1 normal, S2 normal, no click, no gallops and no murmurs BRUITS: no abdominal aortic bruits and no carotid bruits PERIPHERAL PULSES: pulses 2+ throughout GI: COMMON NORMALS: non-tender PALPATION: Yes firm and Yes ascites present PERCUSSION: dullness to percussion RECTAL EXAM: Yes deferred Neuro: COMMON NORMALS: oriented x3 and no focal motor deficits SENSORIUM/ORIENTATION: Yes alert, Yes oriented to person, Yes oriented to place and Yes oriented to time CRANIAL NERVES: Yes CN normal except as noted Psych: COMMON NORMALS: thought process normal APPEARANCE: Yes well kempt MOOD & AFFECT: Yes euthymic mood THOUGHT PROCESS: normal thought process THOUGHT CONTENT: Yes normal thought content ATTENTION/CONCENTRATION: Yes attention grossly intact JUDGEMENT: judgment good Urinary Catheter Management^: Webber Latex Free: Cath Placed During This Visit: yes Urethral Indwelling: Yes Reason for Continuing Indwelling Catheter: Accurate Measurement of Urinary Output in Critically Ill Patients Urinary Catheter Date of Insertion: 01/10/20 Urinary Catheter Time of Insertion: 16:40 Data Other Data: Other data: Laboratory Tests 01/10/20 01/10/20 01/10/20 12:28 12:28 14:18 Magnesium Total Bilirubin 0.7 AST 45 H ALT 91 H Alkaline Phosphata se 79 Troponin I 6 Hour Troponin T Baselin e 133 H* Troponin T 120 Min nolvia 119.0 H NT-Pro-B Natriuret Pep 6423 H Total Protein 5.8 L Albumin 3.7 Globulin 2.1 01/10/20 01/11/20 18:32 04:10 Magnesium 2.5 H Total Bilirubin AST ALT Alkaline Phosphata se Troponin I 6 Hour 112.1 H Troponin T Baselin e Troponin T 120 Min nolvia NT-Pro-B Natriuret Pep Total Protein Albumin Globulin Coronary angiogram (09/2019) Diagnostic Findings Patient has known coronary artery disease with a previous stent to the ostial LAD. He has been having symptoms that are atypical however he is an exceedingly poor historian. His states that he is just not himself and she feels like something is going on. He declined stress testing. Angiography was performed from the right wrist. Left main is normal. The circumflex is normal. There is a ramus intermedius artery which reveals a 20% stenosis in the ostium and the 30% stenosis slightly further down in the proximal portion. There is in-stent restenosis of the ostial LAD. Restenosis was about 95 or 99%. There is good flow in the artery however. The right coronary artery is normal. Patient had ventricular fibrillation upon injection of the right coronary artery. Please see the complication section for details. Left ventriculography was not performed. The procedure was stopped after the ventricular fibrillation episode. Patient's told me that he has been confused and somewhat combative over the last several weeks to months. Seems like his memory is failing and that he is becoming confused more often. Indeed he was combative upon awakening from the ventricular fibrillation event. He seems very confused and disoriented at this time. Conclusions 99% restenosis of the ostial LAD stent. Ventricular fibrillation upon injecting the right coronary artery. No left ventriculogram done. No intervention done. Recommendations Review films and consider intervention versus one-vessel bypass. Chest x-ray on 10 January 2023 showed cardiomegaly otherwise normal. Abdominal x-ray with mild fecal stasis Abdominal ultrasound with ascites. Echo (10 March 2019) CONCLUSIONS Left ventricle is normal in size. There is thinning of the apex. The apex is akinetic and the anterior wall is severely hypokinetic. The suggest prior infarct in the distribution of the LAD. The overall ejection fraction is 35-40%. Grade 2 diastolic dysfunction. Normal right ventricular size and systolic function. Mild pulmonary hypertension, RVSP 49.7 mmHg. Mildly increased left atrial size. Structurally normal mitral valve. Mild mitral valve regurgitation. Trivial pericardial effusion. Echocardiographic findings suggest a non hemodynamically significant pericardial effusion. There are no prior echocardiogram studies to compare. A&P Assessment and plan (1) Cardiac arrest with ventricular fibrillation: Patient has history of ventricular fibrillation during coronary angiogram last year. He was found to have in-stent restenosis in ostial LAD that could not be fixed as patient had ventricular fibrillation during RCA injection. -Given this episode of V. fib arrest requiring short CPR, I think he would need intervention of his LAD lesion. -Continue aspirin, Plavix and therapeutic Lovenox. -Continue amiodarone drip -Case was discussed with Dr. Donaldson and his plan is to proceed with coronary angiogram with high risk intervention of the LAD lesion. -Keep potassium more than 4 and magnesium more than 2. Status: Acute Code(s): I46.9 - Cardiac arrest, cause unspecified; I49.01 - Ventricular fibrillation (2) Atrial fibrillation with RVR: Paroxysmal atrial fibrillation with rapid ventricular response. Patient has converted back to sinus rhythm with amiodarone drip. -Continue amiodarone drip and Lovenox. -Would need to be transitioned to DOAC on discharge. Status: Acute Code(s): I48.91 - Unspecified atrial fibrillation (3) ASHD (arteriosclerotic heart disease): Single-vessel CAD. Status: Acute Code(s): I25.10 - Atherosclerotic heart disease of [place] coronary artery without angina pectoris (4) CHF (congestive heart failure): Status: Acute Qualifiers: Heart failure chronicity: acute on chronic Heart failure type: combined systolic and diastolic Qualified Code(s): I50.43 - Acute on chronic combined systolic (congestive) and diastolic (congestive) heart failure Code(s): I50.9 - Heart failure, unspecified (5) Hyperlipidemia: Status: Acute Code(s): E78.5 - Hyperlipidemia, unspecified (6) Essential hypertension: Status: Acute Code(s): I10 - Essential (primary) hypertension Coding Level of Care Code Acute Mobile Sales Assistant for [facility] Fwd Exam Comprehensive Diagnoses Cardiac arrest with ventricular fibrillation I46.9; I49.01 Atrial fibrillation with RVR I48.91 ASHD (arteriosclerotic heart disease) I25.10 CHF (congestive heart failure) I50.43 Heart failure chronicity: acute on chronic Heart failure type: combined systolic and diastolic Hyperlipidemia E78.5 Essential hypertension I10
[2020-01-11] MEDS: isosorbide mononitrate ER 30 mg Tablet PO (09:42)
[2020-01-11] MEDS: amlodipine 10 mg Tablet PO (09:42)
[2020-01-11] MEDS: tamsulosin 0.4 mg Capsule PO (09:42)
[2020-01-11] MEDS: pantoprazole DR 40 mg Tablet PO (09:42)
[2020-01-11] MEDS: enoxaparin 120 mg/0.8 mL Syringe 105 MG SUBCUT (09:42)
[2020-01-11] MEDS: metoprolol tartrate 25 mg Tablet PO ×2 (09:42→17:42)
[2020-01-11] MEDS: clopidogrel 75 mg Tablet PO (09:42)
[2020-01-11] MEDS: aspirin 81 mg Chew Tablet PO (09:42)
[2020-01-11] MEDS: lactobacillus 1 Tablet 1 TAB PO ×2 (09:43→17:42)
[2020-01-11] MEDS: finasteride 5 mg Tablet PO (09:43)
[2020-01-11] MEDS: BuSPIRONE 5 mg Tablet PO ×3 (09:43→20:13)
--- NOTE | 2020-01-11 10:34 | PC.CHAP ---
Pastoral Care Encounter/Spiritual Assessment Type of Contact [] Declined brands editor visit [] Patient/Family/Request visit [] Outpatient visit [] Follow-up visit [] Physician referral [] Code/Alert [x] Routine visit [] Staff referral [] Actively dying [] Patient sleeping [] Family support [] [] Out of room [] Palliative care [] [] Receiving care in room [] Pre-surgical visit [] Trauma [] Long length of stay [x] ICU visit [] Other: Relational/Emotional Strength [x] Patient feels connected with others/family/visitors/staff [] Distress [] Loneliness/isolation [] Abandonment Spirituality of Patient [x] Person of Riya [] Attends Synagogue of their Riya [x] Believes in Prayer [x] Reads Bible or Sabianism materials [] There are Spiritual issues to be addressed Denial Management Representative Interventions [x] Prayer [x] Active listening [x] Non-anxious presence [x] Spiritual/emotional support [] Crisis/trauma care [x] Spiritual counseling [] Bereavement support [] Provided bereavement packet [] Provided Bible/devotional materials [] Provided toy/stuffed animal, coloring book to patient or family member [] Provided Communion [] Anointing/[place] [] Salvation [] Completed spiritual assessment [] Other: Impact on Illness or Injury [] Angry [] Fearful [] Anxious [] Often cries [] Exhaustion [] Unable to work [] Unable to attend restorationism [] Unable to walk/stand [] Unable to read [] Unable to drive [] Unable to eat/drink [] Unable to sleep [] Unable to be with family [] Patient intubated [x] Other: n/a Summary Patient is awaiting the placement of a stint. Time spent with patient 10 minutes
--- NOTE | 2020-01-11 11:20 | PC.OT ---
OT note. Will hold OT this date as pt had event this morning and has cath procedure planned for tomorrow morning. Discussed with nursing and will hold until tomorrow afternoon.
--- NOTE | 2020-01-11 12:00 | XR_ITS ---
WS: [id number] XR chest 1V portable [id number] REASON FOR EXAM: post CPR FINDINGS: Cardiomegaly is again noted the chest is similar to January 10, 2020. There is no definite pulmonary edema seen no pneumonia. No pneumothorax is noted. XR/XR chest 1V portable [id number] IMPRESSION: Gross cardiomegaly.
--- NOTE | 2020-01-11 12:01 | PM.PN ---
Subjective Subjective: Interval history: Reviewed overnight documentation including CODE BLUE around 5 AM when patient was found to have ventricular fibrillation. ROSC achieved after CPR, epinephrine, shocked x1, dose of amiodarone and magnesium after approximately 3 minutes. Currently on amiodarone drip. Heart rate much better controlled in the 80s. Reviewed a.m. labs. Ordered chest x-ray post CPR due to patient's complaints of chest pain. Will discuss case further with cardiology. Had 3000 mL urine output overnight. Patient seen and examined, at bedside, sitting in chair by bedside having his lunch, complains of soreness in his chest area likely due to CPR. Otherwise no complaints. Seems to be in good spirits. Aware of plan for cath tomorrow. Medications: Reviewed: Yes Medication Review Details: Current Medications Generic Name Dose Route Start Last Admin Trade Name Freq PRN Reason Stop Dose Admin Acetaminophen 650 mg 01/10/20 16:09 01/11/20 07:27 Tylenol PO 650 mg Q6H PRN Administration Mild/Mod Pain Or Temp >/= 101 Amlodipine Besylat e 10 mg 01/11/20 09:00 01/11/20 09:42 Norvasc PO 10 mg DAILY BEATRIZ Administration Aspirin 81 mg 01/11/20 09:00 01/11/20 09:42 Aspirin Chewable PO 81 mg DAILY BEATRIZ Administration Atorvastatin Calci um 40 mg 01/10/20 21:00 01/10/20 21:21 Lipitor PO 40 mg BEDTIME BEATRIZ Administration Bumetanide 1 mg 01/10/20 16:09 01/11/20 05:49 Bumex IV Not Given Q12H BEATRIZ Buspirone HCl 5 mg 01/10/20 21:00 01/11/20 09:43 Buspar PO 5 mg TID BEATRIZ Administration Clopidogrel Bisulf ate 75 mg 01/11/20 09:00 01/11/20 09:42 Plavix PO 75 mg DAILY BEATRIZ Administration Finasteride 5 mg 01/11/20 09:00 01/11/20 09:43 Proscar PO 5 mg DAILY BEATRIZ Administration Amiodarone HCl 900 mg/ 518 mls @ 0 mls/h r 01/11/20 05:15 01/11/20 11:20 Dextrose/ IV Misce llaneous IV 0.5 mg/min Supplies .Q0M BEATRIZ 17.3 mls/hr Titration Protocol Per Protocol Isosorbide Mononit rate 30 mg 01/11/20 09:00 01/11/20 09:42 Imdur PO 30 mg DAILY BEATRIZ Administration Lactobacillus Acid ophilus 1 tab 01/10/20 18:00 01/11/20 09:43 Floranex PO 1 tab BID BEATRIZ Administration Metoprolol Tartrat e 25 mg 01/11/20 09:00 01/11/20 09:42 Lopressor PO 25 mg BID BEATRIZ Administration Pantoprazole Sodiu m 40 mg 01/11/20 09:00 01/11/20 09:42 Protonix PO 40 mg DAILY BEATRIZ Administration Tamsulosin HCl 0.4 mg 01/11/20 09:00 01/11/20 09:42 Flomax PO 0.4 mg DAILY BEATRIZ Administration Vitals/I&O/Wt Last Vital Signs Temp 97.7 F 01/10/20 12:17 Pulse 86 01/11/20 08:45 Resp 17 01/11/20 08:45 BP 141/77 01/11/20 08:45 Pulse Ox 90 01/11/20 08:45 01/10/20 01/11/20 01/11/20 22:59 06:59 14:59 Intake Total 711 / 723.234 125 / 848.234 205.275 / 205.275 Output Total 3000 / 3000 Balance 711 / 723.234 -2875 / -2151.766 205.275 / 205.275 Weight last 48 hrs Weight 108.862 kg Weight 108.862 kg Physical Exam Const: COMMON NORMALS: no apparent distress and oriented x3 GENERAL APPEARANCE: cooperative and comfortable NUTRITIONAL APPEARANCE: obese ORIENTATION/CONSCIOUSNESS: Yes awake HENMT: COMMON NORMALS: normocephalic, head/scalp atraumatic and moist oral mucous membranes HEAD & SCALP: normocephalic and atraumatic GENERAL EAR: hearing grossly impaired Laterality: diffuse Eye: COMMON NORMALS: PERRL, EOMs intact bilaterally and conjunctivae normal CONJUNCTIVA: Yes conjunctivae normal PUPIL: Yes PERRL Neck/C-Spine: COMMON NORMALS: full ROM GENERAL: Yes normal visual inspection and Yes trachea midline Resp: COMMON NORMALS: normal respiratory effort, no retractions and no use of accessory muscles EFFORT & INSPECTION: Yes able to speak in complete sentences, Yes symmetric chest movement and No tachypneic AUSCULTATION: crackles Cardio: COMMON NORMALS: regular rate, S1 normal heart sound, S2 normal heart sound and no murmurs RATE: regular rate RHYTHM: abnormal rhythm (atrial fibrillation with RVR) irregularly irregular HEART SOUNDS: S1 normal and S2 normal GI: COMMON NORMALS: soft to palpation and non-tender INSPECTION: Yes abdominal distension and Yes central obesity AUSCULTATION: Yes normoactive bowel sounds PALPATION: Yes soft, No tender, No guarding and No rigid Extremity: COMMON NORMALS: normal to inspection and full ROM GENERAL: Yes edema (1+ pitting edema of bilateral LE) Neuro: COMMON NORMALS: oriented x3, moves all extremities, no focal motor deficits and no sensory deficits noted Psych: COMMON NORMALS: mental status grossly normal, thought process normal, cooperative, affect normal and speech normal SPEECH: Yes normal speech THOUGHT PROCESS: normal thought process Skin: COMMON NORMALS: no rashes or lesions noted, no jaundice, no petechiae and no mottling GENERAL SKIN EXAM: no rashes or lesions noted Urinary Catheter Management^: Webber Latex Free: Cath Placed During This Visit: yes Urethral Indwelling: Yes Reason for Continuing Indwelling Catheter: Accurate Measurement of Urinary Output in Critically Ill Patients Urinary Catheter Date of Insertion: 01/10/20 Urinary Catheter Time of Insertion: 16:40 Data : 01/11/20 04:10 01/11/20 04:10 A&P Assessment and plan (1) Cardiac arrest with ventricular fibrillation: -Went into cardiac arrest with ventricular fibrillation earlier this morning around 5 AM; ROSC achieved after 3 minutes of CPR, dose of epinephrine, 120 J shock, dose of amiodarone 150 and dose of magnesium due to concern for possible torsades -Currently on amiodarone drip with much better heart rate control -Cardiology on board, consult appreciated; cath tomorrow -Troponins noted with positive delta over 20 Status: Acute Code(s): I46.9 - Cardiac arrest, cause unspecified; I49.01 - Ventricular fibrillation (2) Atrial fibrillation with RVR: -Presented with A. fib with RVR with heart rates in the 140s; suspect that this was triggered by acute CHF exacerbation -From history and review of medical record seems to be paroxysmal -off Cardizem drip, now on amiodarone drip; see the dose of digoxin 250 mcg earlier this morning -on metoprolol -Telemetry monitoring -VSS; continue to monitor -Echo done 02/2019: EF=35-40%, G2DD, mild pulmonary HTN (50), mild MR, mild-moderate TR -Will need to discuss initiation of anticoagulation after coronary angiogram Status: Acute Code(s): I48.91 - Unspecified atrial fibrillation (3) CHF (congestive heart failure): -Noted to have 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 as evidenced by increased shortness of breath, lower extremity edema, abdominal distention, elevated BNP -on IV diuresis with Bumex; so far has diuresed 1.9 L -Daily weights, monitor ins and outs -VSS: continue to monitor -continue to monitor renal function and electrolytes with diuresis -Echo done 02/2019: EF=35-40%, G2DD, mild pulmonary HTN (50), mild MR, mild-moderate TR -troponin (baseline)-133; suspect demand ischemia secondary to CHF exacerbation Status: Acute Qualifiers: Heart failure chronicity: acute on chronic Heart failure type: combined systolic and diastolic Qualified Code(s): I50.43 - Acute on chronic combined systolic (congestive) and diastolic (congestive) heart failure Code(s): I50.9 - Heart failure, unspecified (4) BPH (benign prostatic hyperplasia): -Has known history of BPH with intermittent self-catheterization though has not needed to do this in quite some time -has Webber catheter for accurate ins and outs given need for aggressive IV diuresis; assess daily for removal -continue Flomax and finasteride Status: Acute Qualifiers: Lower urinary tract symptom detail: urinary retention Lower urinary tract symptom presence: symptoms present Qualified Code(s): N40.1 - Benign prostatic hyperplasia with lower urinary tract symptoms; R33.8 - Other retention of urine Code(s): N40.0 - Benign prostatic hyperplasia without lower urinary tract symptoms Additional A&P Information -HTN -hx of CAD s/p stenting, ischemic cardiomyopathy; on ASA, Plavix -COPD, not oxygen dependent -Bilateral carotid artery stenosis -Hyperlipidemia; intolerant of statins -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; baseline Cr around 1-1.3; avoid IVF due to acute CHF exacerbation -GERD; on PPI -recently diagnosed pneumonia; has been on Levaquin; noted QTc prolongation, hold this -fall precautions, up with assist -cardiac diet as tolerated -GI ppx with PPI -DVT ppx with heparin -Dispo: home, is his primary caregiver -Code status: FULL code -ICU care given cardiac arrest earlier this morning Attestations Medical Necessity Statement*: Patient requires hospitalization for continued management of atrial fibrillation, status post cardiac arrest earlier this morning and continued diuresis secondary to acute CHF exacerbation. Time Spent in Patient Care: Greater than 35 minutes (>than 50% of time spent in counselling and/or direct pt care on unit). Coding Level of Care Code Acute Sheriff'S Detective for g Fwd Exam Comprehensive Diagnoses Cardiac arrest with ventricular fibrillation I46.9; I49.01 Atrial fibrillation with RVR I48.91 CHF (congestive heart failure) I50.43 Heart failure chronicity: acute on chronic Heart failure type: combined systolic and diastolic BPH (benign prostatic hyperplasia) N40.1; R33.8 Lower urinary tract symptom detail: urinary retention Lower urinary tract symptom presence: symptoms present
--- NOTE | 2020-01-11 12:09 | PM.MISC ---
Miscellaneous Note Note: Luis has the noted medical problems. He was having discomfort last fall and angiography revealed in-stent restenosis of an ostial LAD stent. This would be a very tricky intervention. When I injected his right coronary artery, which is normal, he had a ventricular fibrillation arrest. It took 24 to 48 hours for him to awaken properly from this. He had a period of anoxia. He has a complicated history otherwise which is delineated in the notes. Apparently had a recent pneumonia and came in with atrial fibrillation on this occasion. This is not his first episode of atrial fibrillation. This morning he had an episode of ventricular fibrillation which on the monitor look like torsades. He has been seen by Dr. Ramirez. I have spoken to the patient and his . We will make an attempt tomorrow morning at 7:00 to intervene on the ostial LAD. This will be tricky and risky. I will have Dr. Reddy available. The procedure will be done from the right common femoral artery because the last procedure was done from the right radial artery and I could not seat the catheter in the left main coronary artery very well. This procedure will require good guide support.
--- NOTE | 2020-01-11 14:54 | PC.CHAP ---
Pastoral Care Encounter/Spiritual Assessment Type of Contact [] Declined fund development manager visit [] Patient/Family/Request visit [] Outpatient visit [] Follow-up visit [] Physician referral [] Code/Alert [] Routine visit [] Staff referral [] Actively dying [] Patient sleeping [] Family support [] [] Out of room [] Palliative care [] [] Receiving care in room [] Pre-surgical visit [] Trauma [] Long length of stay [x] ICU visit [] Other: Relational/Emotional Strength [x] Patient feels connected with others/family/visitors/staff [] Distress [] Loneliness/isolation [] Abandonment Spirituality of Patient [x] Person of Riya [] Attends Mosque of their Riya [x] Believes in Prayer [] Reads Bible or Muslim materials [] There are Spiritual issues to be addressed 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 Interventions [x] Prayer [x] Active listening [x] Non-anxious presence [x] Spiritual/emotional support [] Crisis/trauma care [] Spiritual counseling [] Bereavement support [] Provided bereavement packet [] Provided Bible/devotional materials [] Provided toy/stuffed animal, coloring book to patient or family member [] Provided Communion [x] Anointing/[place] [] Salvation [] Completed spiritual assessment [] Other: Impact on Illness or Injury [] Angry [] Fearful [x] Anxious [] Often cries [] Exhaustion [] Unable to work [] Unable to attend yazdanism [] Unable to walk/stand [] Unable to read [] Unable to drive [] Unable to eat/drink [] Unable to sleep [] Unable to be with family [] Patient intubated [] Other: Summary Had prayer and talk about famiily Time spent with patient 5
[2020-01-11] MEDS: bumetanide 0.25 mg/mL SDV 10 mL 1 MG IV (16:51)
[2020-01-11] MEDS: enoxaparin 120 mg/0.8 mL Syringe 110 MG SUBCUT (20:13)
[2020-01-11] MEDS: atorvastatin 40 mg Tablet PO (20:13)
[2020-01-12] VITALS (57 sets, daily range): BP systolic 94–156; BP diastolic 69–101; PULSE 78–96; RESP 12–29; TEMP 36.4–36.8; O2SAT 87–97
[2020-01-12] MEDS: bumetanide 0.25 mg/mL SDV 10 mL 1 MG IV (04:19)
[2020-01-12 05:03] LABS: Basophils % 0.3 %; Eosinophils % 0.2 %; Hematocrit 43.3 % (42.0-52.0); Hemoglobin 14.5 g/dL (11.7-16.6); Lymphocytes # 1.1 10^3/uL (0.8-4.8); Lymphocytes % 10.1 %; Mean Corpuscular HGB Conc 33.5 g/dL (30.0-36.0); Mean Corpuscular Hemoglobin 30.7 pg (28.0-34.0); Mean Corpuscular Volume 91.5 fL (80-94); Monocytes # 0.9 10^3/uL (0.2-0.9); Monocytes % 8.6 %; Neutrophils # 8.5 10^3/uL (1.8-7.7); Neutrophils % 78.8 %; Nucleated Red Blood Cells % 0 %; Platelet Count 176 10^3/cmm (130-400); Red Blood Count 4.73 10^6/uL (4.1-5.3); Red Cell Distribution Width 12.5 % (12.1-15.1); White Blood Count 10.8 10^3/uL (4.0-10.0)
[2020-01-12 05:28] LABS: Anion Gap 14.9 (5-19); Blood Urea Nitrogen 22 mg/dL (8-23); Calcium 8.8 mg/dL (8.5-10.5); Carbon Dioxide 21 mmol/L (22-29); Chloride 105 mmol/L (98-107); Glucose 103 mg/dL (65-115); Osmolality Calculated 281 mOsm/kg (285-295); Potassium 3.9 mmol/L (3.5-5.1); Sodium 137 mmol/L (136-145)
[2020-01-12] MEDS: sodium chloride 0.9% 1,000 ML 50 ML IV (06:11)
[2020-01-12] MEDS: diphenhydrAMINE 50 mg Capsule PO (06:11)
--- NOTE | 2020-01-12 06:33 | XACV_ITS ---
Exam Room: [facility] Ht: 183 cm Wt: 109 kg BSA: 2.38 m2 Gender: Male : 1940 Any Known Allergies: No known allergies Exam Priority: Routine Procedure(s): Procedure Description: Diagnostic procedure Procedure Description: PCI procedure Procedure Description: Left Heart Catheterization Procedure Description: Drug Eluting Coronary Stent Procedure Description: PTCA Procedure Description: Coronary Angiography Diagnostic Cath Status: Urgent Diagnostic Findings Patient with previously placed LAD stent just beyond the ostium. Restenosis of the stent and of the ostial LAD. Patient presented with atrial fibrillation then ventricular fibrillation. Angiography and angioplasty indicated to restent the LAD. There is a 99% stenosis of the ostial LAD and some restenosis of the proximal stent with ROHIT I flow. The remainder of the vessels were not injected. Patient has a 20% eccentric stenosis of the ramus intermedius and a normal circumflex. The right coronary artery was not injected. PCI Status: Urgent PCI LVEF Assessed: No PCI Indication: NSTE - ACS Interventional Findings Noncompliant balloon was used to first angioplasty the area. This was followed by a 2.75 x 15 mm drug-eluting stent. Careful attention was given to placing the proximal portion of the stent in the ostium of the LAD just barely inside the left main coronary artery so as not to embarrass the flow in the ramus intermedius artery or the circumflex. Decision for PCI with Surgical Consult: No PCI for Multi-vessel Disease: No Conclusions Angioplasty and stenting of the ostial LAD with good results. Interventional RX Recommendation: medical therapy and/or counseling Diagnostic RX Recommendation: medical therapy and/or counseling Anticoagulation: Heparin Pressures Phase:Rest AO : 107 mmHg / 73 mmHg ( 88 mmHg ) @ 1:11:00 AM 103 mmHg / 76 mmHg ( 87 mmHg ) @ 1:16:00 AM Clinical Evaluation EBL: 5mL-10mL Procedural Details Procedure Consent Obtained. Pre-Procedure Time Out. Identified patient by full name and date of as verbalized by the patient/guarantor. Does the consent match the physician's order: Yes. Accurate & Complete Informed Consent: Yes. Inpatient/Outpatient History & Physical on Chart: Yes. If H&P is completed, is and addenduem needed: N/A; If yes, is the addendum complete: N/A. Visualize and Verify Site with Patient/Guarantor: N/A. Relevant Radiology Images available: Yes. Pre-op teaching completed and patient verbalized understanding. The risks, benefits, and alternatives of sedation and/or procedure were discussed by physician. The patient agrees to continue. Procedure started. Correct patient, site and procedure confirmed by cath team. PERRLA. Strong, equal hand plant guard bilaterally. Lungs clear x 5 lobes. IV Site on Arrival: 20 gauge in the left anticubital. IV Site on Arrival: 20 gauge in the right hand. IV Fluids: 0.9% NaCl at KVO. 100 mL infused prior to cardiac cath technician. Pre Procedural Pulses: bilateral dorsalis pedis was 2+. Pre Procedural Pulses: bilateral radial was 2+. Oxygen started at 2liters/min via nasal canula. bilateral groins was prepped with chloroprep then draped in the usual sterile fashion. Physician notified. Baseline sample Acquired. HR: 101 BPM. Physician arrived. Equipment: 6F - Femoral. Physician scrubbed in. Immediate Pre-Procedure Time Out. Correct Patient: Yes; Correct Procedure: Yes; Correct Site: Yes; Correct Patient Position: Yes; Correct Supplies: Yes; Dried Flammable Prep: Yes; Blood Products Available: No;. Lidocaine 1% infiltrated to the right groin. Arterial access obtained. 6 japanese XB 3 guide catheter was inserted over the wire. Multiple views taken of left coronary artery. Greer guidewire was advanced through the guide catheter to lesion in the prox LAD. Inflation number : 1 Tabatha CADE EUPHORA RX [id number] BALLOON was prepped and advanced across the Prox LAD , then inflated to 12 MICHELLE for 0:09 seconds. Inflation number: 2 The MDT NC EUPHORA RX [id number] BALLOON was reinflated across the Prox LAD, to 12 MICHELLE for 0:13 seconds. Balloon out. Results checked. Inflation Number : 3 A MDT R SHEFALI 2.75X15 HIEN -Lot Number#[id number] exp 09-13-2021 was prepped and advanced across the Prox LAD. The stent was deployed at 12 MICHELLE for 0:31 seconds. Stent balloon and wire out. Guide catheter out. A Suture was successful obtaining hemostatsis at the Right Femoral artery insertion site. Sheath(s) sutured into position with 2-0 silk and sterile 4x4's and Op-site applied over the site. No oozing or signs and symptoms of hematoma noted. Arterial sheath flushed and connected to tranducer and pressure bag with heparinized saline. Post Procedure: Pulses reassessed and unchanged. PERRLA. Strong, equal hand plant guard bilaterally. No VTE prophylaxis required. Medication's Wasted: Lidocaine 1% = 10 mL. Total IV fluids: 50 mL. Fluoro: 4:07. Contrast type used: Visipaque 320 mgI/mL, 200 mL bottle. [id number]. Complications: none. Estimated blood loss: 5mL-10mL. Procedure completed. Patient transferred by bed to ICU. PCI Indication: NSTE/ACS. Post-op diagnosis: unstable angina. Vital chart was stopped. [facility] Clinical Fraility Score: 5: Mildly Frail. Police Pilot Indications: ACS <= 24 hours. Chest Pain Symptom Assessment: Typical Angina Symptoms. Cardiovascular Instability: No. Site: Right Femoral artery Sheath Size: 6 Fr Hemostasis Method: Suture Hemostasis Success: Successful Procedure Medications Start: 7:04 AM Stop: 7:04 AM Medication: Versed Amount: 1 mg Route: I.V. Start: 7:04 AM Stop: 7:04 AM Medication: Fentanyl Amount: 50 mcg Route: I.V. Start: 7:06 AM Stop: 7:06 AM Medication: Versed Amount: 1 mg Route: I.V. Start: 7:06 AM Stop: 7:06 AM Medication: Fentanyl Amount: 50 mcg Route: I.V. Start: 7:14 AM Stop: 7:14 AM Medication: Heparin Amount: 5000 units Route: I.V. I, the attending physician, have reviewed and verified all procedure medications. Yes, all medications given per verbal order History/Risk Factors Hypertension: Yes Dyslipidemia: Yes Peripheral Arterial Disease (PAD): No Myocardial Infarction (MS): No Obesity: Yes Renal Disease: Yes Tobacco Use: Never Prior Interventions PCI: Yes CABG: No Valve Surgery: No Date of PCI: 01/07/2019 Report Signatures Finalized by:Dr. Miguel Angel Donaldson MD on 01/12/2020 7:49:30 AM
--- NOTE | 2020-01-12 07:08 | PC.NURSE ---
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
[2020-01-12] MEDS: pantoprazole DR 40 mg Tablet PO (09:04)
[2020-01-12] MEDS: aspirin 81 mg Chew Tablet PO (09:04)
[2020-01-12] MEDS: finasteride 5 mg Tablet PO (09:04)
[2020-01-12] MEDS: isosorbide mononitrate ER 30 mg Tablet PO (09:04)
[2020-01-12] MEDS: amlodipine 10 mg Tablet PO (09:04)
[2020-01-12] MEDS: clopidogrel 75 mg Tablet PO (09:05)
[2020-01-12] MEDS: BuSPIRONE 5 mg Tablet PO ×3 (09:05→21:49)
[2020-01-12] MEDS: metoprolol tartrate 25 mg Tablet PO ×2 (09:05→17:28)
[2020-01-12] MEDS: lactobacillus 1 Tablet 1 TAB PO ×2 (09:05→17:29)
[2020-01-12] MEDS: tamsulosin 0.4 mg Capsule PO (09:05)
[2020-01-12] MEDS: sodium chloride 0.9% 1,000 ML 100 ML IV ×2 (09:10→17:34)
--- NOTE | 2020-01-12 09:54 | P.PN_ITS ---
Subjective Subjective: Interval history: Cath earlier this AM, had successful angioplasty and stenting of the ostial LAD. Currently hemodynamically stable, a.m. labs noted, improving renal function. Overnight had very robust urine output of 4850 mL, overall fluid balance of -8.4 L. Patient seen and examined, at bedside, doing well status post cath. Medications: Reviewed: Yes Medication Review Details: Current Medications Generic Name Dose Route Start Last Admin Trade Name Freq PRN Reason Stop Dose Admin Acetaminophen 650 mg 01/10/20 16:09 01/11/20 20:13 Tylenol PO 650 mg Q6H PRN Administration Mild/Mod Pain Or Temp >/= 101 Amlodipine Besylat e 10 mg 01/11/20 09:00 01/12/20 09:04 Norvasc PO 10 mg DAILY BEATRIZ Administration Aspirin 81 mg 01/11/20 09:00 01/12/20 09:04 Aspirin Chewable PO 81 mg DAILY BEATRIZ Administration Atorvastatin Calci um 40 mg 01/10/20 21:00 01/11/20 20:13 Lipitor PO 40 mg BEDTIME BEATRIZ Administration Bumetanide 1 mg 01/10/20 16:09 01/12/20 04:19 Bumex IV 1 mg Q12H BEATRIZ Administration Buspirone HCl 5 mg 01/10/20 21:00 01/12/20 09:05 Buspar PO 5 mg TID BEATRIZ Administration Clopidogrel Bisulf ate 75 mg 01/11/20 09:00 01/12/20 09:05 Plavix PO 75 mg DAILY BEATRIZ Administration Enalapril Maleate 20 mg 01/12/20 09:00 01/12/20 09:04 Vasotec PO 20 mg DAILY BEATRIZ Administration Finasteride 5 mg 01/11/20 09:00 01/12/20 09:04 Proscar PO 5 mg DAILY BEATRIZ Administration Amiodarone HCl 900 mg/ 518 mls @ 0 mls/h r 01/11/20 05:15 01/12/20 06:11 Dextrose/ IV Misce llaneous IV 0.5 mg/min Supplies .Q0M BEATRIZ 17.3 mls/hr Administration Protocol Per Protocol Sodium Chloride 1,000 mls @ 50 ml s/hr 01/12/20 06:15 01/12/20 06:11 Sodium Chloride 0.9% IV 01/13/20 02:14 50 mls/hr .Q20H ONE Administration Sodium Chloride 1,000 mls @ 100 m ls/hr 01/12/20 08:10 01/12/20 09:10 Sodium Chloride 0.9% IV 100 mls/hr .Q10H BEATRIZ Administration Isosorbide Mononit rate 30 mg 01/11/20 09:00 01/12/20 09:04 Imdur PO 30 mg DAILY BEATRIZ Administration Lactobacillus Acid ophilus 1 tab 01/10/20 18:00 01/12/20 09:05 Floranex PO 1 tab BID BEATRIZ Administration Lactobacillus Acid ophilus 2 tab 01/12/20 09:00 01/12/20 09:16 Floranex PO Not Given DAILY BEATRIZ Metoprolol Tartrat e 25 mg 01/11/20 09:00 01/12/20 09:05 Lopressor PO 25 mg BID BEATRIZ Administration Pantoprazole Sodiu m 40 mg 01/11/20 09:00 01/12/20 09:04 Protonix PO 40 mg DAILY BEATRIZ Administration Tamsulosin HCl 0.4 mg 01/11/20 09:00 01/12/20 09:05 Flomax PO 0.4 mg DAILY BEATRIZ Administration Vitals/I&O/Wt Last Vital Signs Temp 98.3 F 01/12/20 04:00 Pulse 89 01/12/20 09:45 Resp 17 01/12/20 09:45 BP 144/82 01/12/20 09:45 Pulse Ox 94 01/12/20 09:45 01/11/20 01/12/20 01/12/20 22:59 06:59 14:59 Intake Total 440 / 645.275 312.725 / 958.000 Output Total 1100 / 2400 4850 / 7250 Balance -660 / -1754.725 -4537.275 / -6292.000 Weight last 48 hrs Weight 102.285 kg Weight 108.862 kg Weight 108.862 kg Physical Exam Const: COMMON NORMALS: no apparent distress and oriented x3 GENERAL APPEARANCE: cooperative and comfortable NUTRITIONAL APPEARANCE: obese ORIENTATION/CONSCIOUSNESS: Yes awake HENMT: COMMON NORMALS: normocephalic, head/scalp atraumatic and moist oral mucous membranes HEAD & SCALP: normocephalic and atraumatic GENERAL EAR: hearing grossly impaired Laterality: diffuse Eye: COMMON NORMALS: PERRL, EOMs intact bilaterally and conjunctivae normal CONJUNCTIVA: Yes conjunctivae normal PUPIL: Yes PERRL Neck/C-Spine: COMMON NORMALS: full ROM GENERAL: Yes normal visual inspection and Yes trachea midline Resp: COMMON NORMALS: normal respiratory effort, no retractions and no use of accessory muscles EFFORT & INSPECTION: Yes able to speak in complete sentences, Yes symmetric chest movement and No tachypneic AUSCULTATION: c rackles Cardio: COMMON NORMALS: regular rate, S1 normal heart sound, S2 normal heart sound and no murmurs RATE: regular rate RHYTHM: abnormal rhythm (atrial fibrillation with RVR) irregularly irregular HEART SOUNDS: S1 normal and S2 normal GI: COMMON NORMALS: soft to palpation and non-tender INSPECTION: Yes abdominal distension (decreased) and Yes central obesity AUSCULTATION: Yes n ormoactive bowel sounds PALPATION: Yes soft, No tender, No guarding and No ri gid : BLADDER/KIDNEY EXAM: Yes catheter in place Catheter type (Male): urethral Extremity: COMMON NORMALS: normal to inspection, full ROM and no clubbing, cyanosis or edema GENERAL: No edema Neuro: COMMON NORMALS: oriented x3, moves all extremities, no focal motor deficits and no sensory deficits noted Psych: COMMON NORMALS: mental status grossly normal, thought process normal, cooperative, affect normal and speech normal SPEECH: Yes normal speech THOUGHT PROCESS: normal thought process Skin: COMMON NORMALS: no rashes or lesions noted, no jaundice, no petechiae and no mottling GENERAL SKIN EXAM: no rashes or lesions noted Urinary Catheter Management^: Webber Latex Free: Cath Placed During This Visit: yes Urethral Indwelling: Yes Reason for Continuing Indwelling Catheter: Accurate Measurement of Urinary Ou tput in Critically Ill Patients Urinary Catheter Date of Insertion: 01/10/20 Urinary Catheter Time of Insertion: 16:40 Data : 01/12/20 04:30 01/12/20 04:30 A&P Assessment and plan (1) Cardiac arrest with ventricular fibrillation: -Went into cardiac arrest with ventricular fibrillation on 01/11 @ 5 AM; ROSC achieved after 3 minutes of CPR, dose of epinephrine, 120 J shock, dose of amiodarone 150 and dose of magnesium due to concern for possible torsades -on amiodarone drip with much better heart rate control -Cardiology on board, consult appreciated; cath today with successful angioplasty and stenting of ostial LAD -Troponins noted with positive delta over 20 Status: Acute Code(s): I46.9 - Cardiac arrest, cause unspecified; I49.01 - Ventricular fibrillation (2) Atrial fibrillation with RVR: -Presented with A. fib with RVR with heart rates in the 140s; suspect that this was triggered by acute CHF exacerbation -From history and review of medical record seems to be paroxysmal -off Cardizem drip, now on amiodarone drip; received dose of digoxin 250 mcg on 01/11 -on metoprolol -Telemetry monitoring -VSS; continue to monitor -Echo done 02/2019: EF=35-40%, G2DD, mild pulmonary HTN (50), mild MR, mild- moderate TR -Will need to discuss initiation of anticoagulation after coronary angiogram Status: Acute Code(s): I48.91 - Unspecified atrial fibrillation (3) CHF (congestive heart failure): -Noted to have 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 as evidenced by increased shortness of breath, lower extremity edema, abdominal distention, elevated BNP -on IV diuresis with Bumex; so far has diuresed 8.4 L; will hold off on further diuresis for now to avoid overdiuresing -Daily weights, monitor ins and outs -VSS: continue to monitor -continue to monitor renal function and electrolytes with diuresis -Echo done 02/2019: EF=35-40%, G2DD, mild pulmonary HTN (50), mild MR, mild- moderate TR -troponin (baseline)-133; suspect demand ischemia secondary to CHF exacerbation Status: Acute Qualifiers: Heart failure chronicity: acute on chronic Heart failure type: combined systolic and diastolic Qualified Code(s): I50.43 - Acute on chronic combined systolic (congestive) and diastolic (congestive) heart failure Code(s): I50.9 - Heart failure, unspecified (4) BPH (benign prostatic hyperplasia): -Has known history of BPH with intermittent self-catheterization though has not needed to do this in quite some time -has Webber catheter for accurate ins and outs given need for aggressive IV diuresis; assess daily for removal -continue Flomax and finasteride Status: Acute Qualifiers: Lower urinary tract symptom detail: urinary retention Lower urinary tract symptom presence: symptoms present Qualified Code(s): N40.1 - Benign prostatic hyperplasia with lower urinary tract symptoms; R33.8 - Other retention of urine Code(s): N40.0 - Benign prostatic hyperplasia without lower urinary tract symptoms Additional A&P Information -HTN -hx of CAD s/p stenting, ischemic cardiomyopathy; on ASA, Plavix -COPD, not oxygen dependent -Bilateral carotid artery stenosis -Hyperlipidemia; intolerant of statins -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; baseline Cr around 1-1.3; avoid IVF due to acute CHF exacerbation -GERD; on PPI -recently diagnosed pneumonia; has been on Levaquin; noted QTc prolongation, hold this -fall precautions, up with assist -cardiac diet as tolerated -GI ppx with PPI -DVT ppx with heparin -Dispo: home, is his primary caregiver -Code status: FULL code -ICU care given cardiac arrest and recent intervention Attestations Medical Necessity Statement*: Patient requires hospitalization for continued management of CAD status post recent stenting earlier this morning, pending initiation of anticoagulation Time Spent in Patient Care: Greater than 35 minutes (>than 50% of time spent in counselling and/or direct pt care on unit) . Coding Level of Care Code Acute Science Faculty Member for g Fwd Exam Comprehensive Diagnoses Cardiac arrest with ventricular fibrillation I46.9; I49.01 Atrial fibrillation with RVR I48.91 CHF (congestive heart failure) I50.43 Heart failure chronicity: acute on chronic Heart failure type: combined systolic and diastolic BPH (benign prostatic hyperplasia) N40.1; R33.8 Lower urinary tract symptom detail: urinary retention Lower urinary tract symptom presence: symptoms present
--- NOTE | 2020-01-12 11:59 | PC.CHAP ---
Pastoral Care Encounter/Spiritual Assessment Type of Contact [] Declined clinic administrator visit [] Patient/Family/Request visit [] Outpatient visit [] Follow-up visit [] Physician referral [] Code/Alert [x] Routine visit [] Staff referral [] Actively dying [] Patient sleeping [x] Family support [] [] Out of room [] Palliative care [] [] Receiving care in room [] Pre-surgical visit [] Trauma [] Long length of stay [x] ICU visit [] Other: Relational/Emotional Strength [] Patient feels connected with others/family/visitors/staff [] Distress [] Loneliness/isolation [] Abandonment Spirituality of Patient [x] Person of Riya [] Attends [employer] of their [place] [x] Believes in Prayer [] Reads Bible or Zoroastrian materials [] There are Spiritual issues to be addressed [employer]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 [] Prayer [] Active listening [] Non-anxious presence [] Spiritual/emotional support [] Crisis/trauma care [] Spiritual counseling [] Bereavement support [] Provided bereavement packet [] Provided Bible/devotional materials [] Provided toy/stuffed animal, coloring book to patient or family member [] Provided Communion [] Anointing/[place] [] Salvation [x] Completed spiritual assessment [] Other: Impact on Illness or Injury [] Angry [] Fearful [] Anxious [] Often cries [] Exhaustion [] Unable to work [] Unable to attend taoism [] Unable to walk/stand [] Unable to read [] Unable to drive [] Unable to eat/drink [] Unable to sleep [] Unable to be with family [] Patient intubated [] Other: Summary Time spent with patient 10 min
[2020-01-12] MEDS: acetaminophen 325 mg Tablet 650 MG PO ×2 (13:36→21:48)
[2020-01-12] MEDS: atorvastatin 40 mg Tablet PO (21:48)
[2020-01-13] VITALS (19 sets, daily range): BP systolic 116–155; BP diastolic 58–114; PULSE 77–114; RESP 11–26; TEMP 36.1–36.9; O2SAT 91–98
[2020-01-13 05:45] LABS: Basophils % 0.1 %; Eosinophils # 0.1 10^3/uL (0.0-0.8); Eosinophils % 0.6 %; Hematocrit 41.7 % (42.0-52.0); Hemoglobin 13.9 g/dL (11.7-16.6); Lymphocytes % 10.7 %; Mean Corpuscular HGB Conc 33.3 g/dL (30.0-36.0); Mean Corpuscular Hemoglobin 29.4 pg (28.0-34.0); Mean Corpuscular Volume 88.2 fL (80-94); Mean Platelet Volume 11.2 fL (7.4-10.4); Monocytes # 0.9 10^3/uL (0.2-0.9); Monocytes % 9.4 %; Neutrophils # 7.2 10^3/uL (1.8-7.7); Neutrophils % 77.3 %; Nucleated Red Blood Cells % 0 %; Platelet Count 176 10^3/cmm (130-400); Red Blood Count 4.73 10^6/uL (4.1-5.3); Red Cell Distribution Width 12.8 % (12.1-15.1); White Blood Count 9.3 10^3/uL (4.0-10.0)
[2020-01-13 06:05] LABS: Blood Urea Nitrogen 19 mg/dL (8-23); Calcium 8.9 mg/dL (8.5-10.5); Carbon Dioxide 22 mmol/L (22-29); Chloride 103 mmol/L (98-107); Creatinine Clr Calc Pharmacy 64.1801; Glucose 103 mg/dL (65-115); Osmolality Calculated 283 mOsm/kg (285-295); Sodium 138 mmol/L (136-145)
[2020-01-13] MEDS: aspirin 81 mg Chew Tablet PO (09:18)
[2020-01-13] MEDS: amlodipine 10 mg Tablet PO (09:18)
[2020-01-13] MEDS: finasteride 5 mg Tablet PO (09:19)
[2020-01-13] MEDS: lactobacillus 1 Tablet 1 TAB PO ×2 (09:19→20:40)
[2020-01-13] MEDS: isosorbide mononitrate ER 30 mg Tablet PO (09:19)
[2020-01-13] MEDS: BuSPIRONE 5 mg Tablet PO ×3 (09:19→20:40)
[2020-01-13] MEDS: metoprolol tartrate 25 mg Tablet PO (09:19)
[2020-01-13] MEDS: clopidogrel 75 mg Tablet PO (09:19)
[2020-01-13] MEDS: tamsulosin 0.4 mg Capsule PO (09:19)
[2020-01-13] MEDS: pantoprazole DR 40 mg Tablet PO (09:19)
--- NOTE | 2020-01-13 10:15 | PM.PN ---
Subjective Subjective: Interval history: Luis tolerated the stenting of the ostial LAD yesterday. He occasionally has some bouts of confusion. He remains a very poor historian. He tells me that he has occasional spells of quick shocks in his chest periodically. These last 1 or 2 seconds and go away. He is having some brief self-limited episodes of nonsustained ventricular tachycardia which are 4 or 5 beats in duration. I took him off the amiodarone after the procedure yesterday morning. His blood pressure has been high. His troponin is elevated when he came in. His transaminases are also elevated. His creatinine is now down to 1.2. His heart rates are running in the 100-1 10 range. He is in sinus rhythm. There does not appear to be any episodes of angina. He is up and around with physical therapy. Currently he is on aspirin and Plavix along with amlodipine, statin, long-acting nitrate, beta-sabine and enalapril. He has not had any further atrial fibrillation. Medications: Reviewed: Yes Vitals/I&O/Wt Last Vital Signs Temp 97.6 F 01/13/20 08:00 Pulse 88 01/13/20 08:26 Resp 17 01/13/20 08:00 BP 155/103 01/13/20 08:00 Pulse Ox 94 01/13/20 08:26 01/12/20 01/13/20 01/13/20 22:59 06:59 14:59 Intake Total 1353.333 / 1553.333 200 / 7694.033 1748 / 1240 Output Total 1450 / 1450 650 / 2100 Balance -96.667 / 103.333 -450 / -177.069 3656 / 1240 Weight last 48 hrs Weight 228 lb 8 oz Weight 228 lb 8 oz Weight 225 lb 8 oz Physical Exam Narrative: EXAM NARRATIVE: GENERAL: In general he is awake and alert today. HEENT: Exam within normal limits. NECK: Supple without jugular vein distention. The carotid upstroke is normal without bruits. BACK: Exam normal. LUNGS: Clear. HEART: Regular rate and rhythm. ABDOMEN: Benign without organomegaly or tenderness. EXTREMITIES: No edema. NEUROLOGIC: Exam normal. SKIN: Unremarkable. Urinary Catheter Management^: Webber Latex Free: Cath Placed During This Visit: yes Urethral Indwelling: Yes Reason for Continuing Indwelling Catheter: Accurate Measurement of Urinary Output in Critically Ill Patients Urinary Catheter Date of Insertion: 01/10/20 Urinary Catheter Time of Insertion: 16:40 Data : 01/13/20 04:58 01/13/20 04:58 A&P Assessment and plan (1) Cardiac arrest with ventricular fibrillation: Status: Acute Code(s): I46.9 - Cardiac arrest, cause unspecified; I49.01 - Ventricular fibrillation (2) Elevated troponin: Status: Inactive Code(s): R79.89 - Other specified abnormal findings of blood chemistry (3) Atrial fibrillation with RVR: Status: Acute Code(s): I48.91 - Unspecified atrial fibrillation (4) Hyperlipidemia: Status: Acute Code(s): E78.5 - Hyperlipidemia, unspecified (5) Essential hypertension: Status: Acute Code(s): I10 - Essential (primary) hypertension (6) ASHD (arteriosclerotic heart disease): Status: Acute Code(s): I25.10 - Atherosclerotic heart disease of [place] coronary artery without angina pectoris (7) Carotid stenosis, bilateral: Status: Acute Code(s): I65.23 - Occlusion and stenosis of bilateral carotid arteries (8) CHF (congestive heart failure): Status: Acute Qualifiers: Heart failure type: combined systolic and diastolic Heart failure chronicity: acute on chronic Qualified Code(s): I50.43 - Acute on chronic combined systolic (congestive) and diastolic (congestive) heart failure Code(s): I50.9 - Heart failure, unspecified (9) Ischemic cardiomyopathy: Status: Acute Code(s): I25.5 - Ischemic cardiomyopathy (10) Statin intolerance: Status: Acute Code(s): Z78.9 - Other specified health status (11) Acute non-ST segment elevation myocardial infarction: Status: Acute Code(s): I21.4 - Non-ST elevation (NSTEMI) myocardial infarction (12) Transaminitis: Status: Acute Code(s): R74.0 - Nonspecific elevation of levels of transaminase and lactic acid dehydrogenase [LDH] (13) Nonsustained ventricular tachycardia: Status: Acute Code(s): I47.2 - Ventricular tachycardia Additional A&P Information I think given the underlying atrial fibrillation and the tendency toward becoming decompensated when he gets into atrial fibrillation and ventricular tachycardia I will add back amiodarone 200 mg daily. I am also going to increase his enalapril to 20 mg twice a day and increase the metoprolol to 25 mg twice a day. His baseline heart rate is high and his blood pressure is high. I am going to continue the Imdur. I am going to stop the IV Bumex and place him on Lasix 40 mg daily. He should be able to continue to participate in rehabilitation. 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 Fwd History Detailed Exam Detailed Medical Decision Making Moderate Complexity Diagnoses Cardiac arrest with ventricular fibrillation I46.9; I49.01 Elevated troponin R79.89 Atrial fibrillation with RVR I48.91 Hyperlipidemia E78.5 Essential hypertension I10 ASHD (arteriosclerotic heart disease) I25.10 Carotid stenosis, bilateral I65.23 CHF (congestive heart failure) I50.43 Heart failure type: combined systolic and diastolic Heart failure chronicity: acute on chronic Ischemic cardiomyopathy I25.5 Statin intolerance Z78.9 Acute non-ST segment elevation myocardial infarction I21.4 Transaminitis R74.0 Nonsustained ventricular tachycardia I47.2
--- NOTE | 2020-01-13 10:26 | PC.SOCIAL ---
Pg 2 IMM Explained to pt & Pg 2 IMM. Pt & verbally understands & signed. No questions voiced. Provided a copy to pt & left on pt's bedside table. Signed, dated, & timed, then placed in chart.
[2020-01-13] MEDS: amiodarone 200 mg Tablet PO (10:50)
[2020-01-13] MEDS: magnesium hydroxide 30 mL UDC PO (10:52)
--- NOTE | 2020-01-13 11:02 | PM.PN ---
Subjective Subjective: Interval history: Noted hypertension; antihypertensives adjusted. Had 650 mL urine output overnight. Off IV diuretics, started on oral Lasix. Discontinue Webber catheter. Patient seen and examined, resting quietly in bed, at bedside, feels that his abdomen is distended and he needs to have a bowel movement. Given some milk of magnesia and prune juice earlier. Has been passing some gas. Medications: Reviewed: Yes Medication Review Details: Current Medications Generic Name Dose Route Start Last Admin Trade Name Freq PRN Reason Stop Dose Admin Acetaminophen 650 mg 01/10/20 16:09 01/12/20 21:48 Tylenol PO 650 mg Q6H PRN Administration Mild/Mod Pain Or Temp >/= 101 Amiodarone HCl 200 mg 01/13/20 10:30 01/13/20 10:50 Cordarone PO 200 mg DAILY BEATRIZ Administration Amlodipine Besylat e 10 mg 01/11/20 09:00 01/13/20 09:18 Norvasc PO 10 mg DAILY BEATRIZ Administration Aspirin 81 mg 01/11/20 09:00 01/13/20 09:18 Aspirin Chewable PO 81 mg DAILY BEATRIZ Administration Atorvastatin Calci um 40 mg 01/10/20 21:00 01/12/20 21:48 Lipitor PO 40 mg BEDTIME BEATRIZ Administration Buspirone HCl 5 mg 01/10/20 21:00 01/13/20 09:19 Buspar PO 5 mg TID BEATRIZ Administration Clopidogrel Bisulf ate 75 mg 01/11/20 09:00 01/13/20 09:19 Plavix PO 75 mg DAILY BEATRIZ Administration Finasteride 5 mg 01/11/20 09:00 01/13/20 09:19 Proscar PO 5 mg DAILY BEATRIZ Administration Sodium Chloride 1,000 mls @ 100 m ls/hr 01/12/20 08:10 01/12/20 21:42 Sodium Chloride 0.9% IV 20 mls/hr .Q10H BEATRIZ Infusion Isosorbide Mononit rate 30 mg 01/11/20 09:00 01/13/20 09:19 Imdur PO 30 mg DAILY BEATRIZ Administration Lactobacillus Acid ophilus 1 tab 01/10/20 18:00 01/13/20 09:19 Floranex PO 1 tab BID BEATRIZ Administration Magnesium Hydroxid e 30 ml 01/13/20 10:41 01/13/20 10:52 Milk Of Magnesia PO 30 ml DAILY PRN Administration constipation/flat ulence Pantoprazole Sodiu m 40 mg 01/11/20 09:00 01/13/20 09:19 Protonix PO 40 mg DAILY BEATRIZ Administration Tamsulosin HCl 0.4 mg 01/11/20 09:00 01/13/20 09:19 Flomax PO 0.4 mg DAILY BEATRIZ Administration Vitals/I&O/Wt Last Vital Signs Temp 97.6 F 01/13/20 08:00 Pulse 88 01/13/20 08:26 Resp 17 01/13/20 08:00 BP 155/103 01/13/20 08:00 Pulse Ox 94 01/13/20 08:26 01/12/20 01/13/20 01/13/20 22:59 06:59 14:59 Intake Total 1353.333 / 1553.333 200 / 8824.316 7311 / 1240 Output Total 1450 / 1450 650 / 2100 Balance -96.667 / 103.333 -450 / -157.537 4731 / 1240 Weight last 48 hrs Weight 103.646 kg Weight 103.646 kg Weight 102.285 kg Physical Exam Const: COMMON NORMALS: no apparent distress and oriented x3 GENERAL APPEARANCE: cooperative and comfortable NUTRITIONAL APPEARANCE: obese ORIENTATION/CONSCIOUSNESS: Yes awake OTHER: -Resting in bed HENMT: COMMON NORMALS: normocephalic, head/scalp atraumatic and moist oral mucous membranes HEAD & SCALP: normocephalic and atraumatic GENERAL EAR: hearing grossly impaired Laterality: diffuse Eye: COMMON NORMALS: PERRL, EOMs intact bilaterally and conjunctivae normal CONJUNCTIVA: Yes conjunctivae normal PUPIL: Yes PERRL Neck/C-Spine: COMMON NORMALS: full ROM GENERAL: Yes normal visual inspection and Yes trachea midline Resp: COMMON NORMALS: normal respiratory effort, no retractions, no use of accessory muscles and clear to auscultation bilaterally EFFORT & INSPECTION: Yes able to speak in complete sentences, Yes symmetric chest movement and No tachypneic AUSCULTATION: clear to auscultation bilaterally Cardio: COMMON NORMALS: regular rate, regular rhythm, S1 normal heart sound, S2 normal heart sound and no murmurs RATE: regular rate RHYTHM: regular rhythm HEART SOUNDS: S1 normal and S2 normal GI: COMMON NORMALS: soft to palpation and non-tender INSPECTION: Yes abdominal distension (decreased) and Yes central obesity AUSCULTATION: Yes hyperactive bowel sounds PALPATION: Yes soft, No tender, No guarding and No rigid : BLADDER/KIDNEY EXAM: Yes catheter in place Extremity: COMMON NORMALS: normal to inspection, full ROM and no clubbing, cyanosis or edema GENERAL: No edema Neuro: COMMON NORMALS: oriented x3, moves all extremities, no focal motor deficits and no sensory deficits noted Psych: COMMON NORMALS: mental status grossly normal, thought process normal, cooperative, affect normal and speech normal SPEECH: Yes normal speech THOUGHT PROCESS: normal thought process Skin: COMMON NORMALS: no rashes or lesions noted, no jaundice, no petechiae and no mottling GENERAL SKIN EXAM: no rashes or lesions noted Urinary Catheter Management^: Webber Latex Free: Cath Placed During This Visit: yes Urethral Indwelling: Yes Reason for Continuing Indwelling Catheter: Accurate Measurement of Urinary Output in Critically Ill Patients Urinary Catheter Date of Insertion: 01/10/20 Urinary Catheter Time of Insertion: 16:40 Data : 01/13/20 04:58 01/13/20 04:58 A&P Assessment and plan (1) Cardiac arrest with ventricular fibrillation: -Went into cardiac arrest with ventricular fibrillation on 01/11 @ 5 AM; ROSC achieved after 3 minutes of CPR, dose of epinephrine, 120 J shock, dose of amiodarone 150 and dose of magnesium due to concern for possible torsades -on amiodarone drip with much better heart rate control -Cardiology on board, consult appreciated; cath on 01/13/2020 with successful angioplasty and stenting of ostial LAD -Troponins noted with positive delta over 20 Status: Acute Code(s): I46.9 - Cardiac arrest, cause unspecified; I49.01 - Ventricular fibrillation (2) Atrial fibrillation with RVR: -Presented with A. fib with RVR with heart rates in the 140s; suspect that this was triggered by acute CHF exacerbation -From history and review of medical record seems to be paroxysmal -off Cardizem drip, amiodarone drip; received dose of digoxin 250 mcg on 01/11 -on metoprolol -Telemetry monitoring -VSS; continue to monitor -Echo done 02/2019: EF=35-40%, G2DD, mild pulmonary HTN (50), mild MR, mild-moderate TR -Will need to discuss initiation of anticoagulation after coronary angiogram Status: Resolved Code(s): I48.91 - Unspecified atrial fibrillation (3) CHF (congestive heart failure): -Noted to have 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 as evidenced by increased shortness of breath, lower extremity edema, abdominal distention, elevated BNP -on IV diuresis with Bumex; so far has diuresed 7.5 L; will switch to oral Lasix -Daily weights, monitor ins and outs -VSS: continue to monitor -continue to monitor renal function and electrolytes with diuresis -Echo done 02/2019: EF=35-40%, G2DD, mild pulmonary HTN (50), mild MR, mild-moderate TR -troponin (baseline)-133; suspect demand ischemia secondary to CHF exacerbation Status: Acute Qualifiers: Heart failure chronicity: acute on chronic Heart failure type: combined systolic and diastolic Qualified Code(s): I50.43 - Acute on chronic combined systolic (congestive) and diastolic (congestive) heart failure Code(s): I50.9 - Heart failure, unspecified (4) BPH (benign prostatic hyperplasia): -Has known history of BPH with intermittent self-catheterization though has not needed to do this in quite some time -has Webber catheter for accurate ins and outs given need for aggressive IV diuresis; d/c today -continue Flomax and finasteride Status: Chronic Qualifiers: Lower urinary tract symptom detail: urinary retention Lower urinary tract symptom presence: symptoms present Qualified Code(s): N40.1 - Benign prostatic hyperplasia with lower urinary tract symptoms; R33.8 - Other retention of urine Code(s): N40.0 - Benign prostatic hyperplasia without lower urinary tract symptoms Additional A&P Information -HTN -hx of CAD s/p stenting, ischemic cardiomyopathy; on ASA, Plavix -COPD, not oxygen dependent -Bilateral carotid artery stenosis -Hyperlipidemia; intolerant of statins -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 Time Spent in Patient Care: Greater than 35 minutes (>than 50% of time spent in counselling and/or direct pt care on unit). Coding Level of Care Code Acute Legal Project Manager for g Fwd Exam Comprehensive Diagnoses Cardiac arrest with ventricular fibrillation I46.9; I49.01 Atrial fibrillation with RVR I48.91 CHF (congestive heart failure) I50.43 Heart failure chronicity: acute on chronic Heart failure type: combined systolic and diastolic BPH (benign prostatic hyperplasia) N40.1; R33.8 Lower urinary tract symptom detail: urinary retention Lower urinary tract symptom presence: symptoms present
--- NOTE | 2020-01-13 14:14 | PC.NURSE ---
Significant amount of flatulence noted.
--- NOTE | 2020-01-13 16:32 | PC.PT ---
Patient required 2 standing rests to achieve 250 ft distance,with wheeled walker ,as he uses at home, but gait was steady smooth symmetrical and with good speed;Vital signs good post gait. Patient returned demonstration of all written home exercise program except bridging, states able to continue independently, PT goals achieved, discharge physical therapy
[2020-01-13] MEDS: metoprolol tartrate 50 mg Tablet PO (20:40)
[2020-01-13] MEDS: atorvastatin 40 mg Tablet PO (20:40)
[2020-01-13] MEDS: acetaminophen 325 mg Tablet 650 MG PO (20:40)
[2020-01-14] VITALS (21 sets, daily range): BP systolic 107–169; BP diastolic 68–104; PULSE 67–99; RESP 16–32; TEMP 36.4–36.9; O2SAT 92–99
--- NOTE | 2020-01-14 01:09 | PC.NURSE ---
PT SUSTAINED A 12 BEAT RUN OF VTACH. PT WAS ASYMPTOMATIC. BLOOD PRESSURE 138/88, HR 78, O2 98.
[2020-01-14] MEDS: morphine 4 mg/mL SDV 1 mL 1 MG IVP (02:49)
--- NOTE | 2020-01-14 06:07 | PC.NURSE ---
PT HAS BEEN ALERT AND ORIENTATED. PT IV REMAINS PATENT. PT HAS BEEN RUNNING SINUS RYTHMN WITH PVC'S PRETTY FREQUENTLY. PT HAD A 12 BEAT RUN OF VTACH, THAT WAS THE ONLY EVENT THUS FAR. PT WAS ASYMPTOMATIC AT THAT TIME. PT IS ABLE TO USE BSC WITH ONE ASSIST, JENNIFER CARE WAS PERFORMED. PT GETS AGITATED VERY QUICKLY, PT WAS TALKED DOWN EACH TIME.
--- NOTE | 2020-01-14 07:28 | PM.PN ---
Subjective Subjective: Interval history: Luis seems to be doing okay. He was upset last evening but the Webber catheter came out. Yesterday he wanted it out. Urine output yesterday 580 mL. No further atrial fibrillation. Still having some short runs of nonsustained ventricular tachycardia no more than 10 beats. This will likely continue. His heart rate is better. Most of the time his blood pressure is under control but on occasion he will be high. He still gets confused occasionally. I made some adjustments in his medications yesterday to better control his heart rate and blood pressure. I also put him back on the amiodarone because of the V. tach and to keep him out of atrial fibrillation hopefully. Medications: Reviewed: Yes Vitals/I&O/Wt Last Vital Signs Temp 98.1 F 01/14/20 05:42 Pulse 78 01/14/20 06:00 Resp 16 01/14/20 02:49 BP 147/78 01/14/20 06:00 Pulse Ox 96 01/14/20 06:00 01/13/20 01/14/20 01/14/20 22:59 06:59 14:59 Intake Total 620 / 1860 Output Total 100 / 580 Balance 520 / 1280 Weight last 48 hrs Weight 228 lb 8 oz Weight 228 lb 8 oz Physical Exam Narrative: EXAM NARRATIVE: GENERAL: General he is comfortable this morning HEENT: Exam within normal limits. NECK: Supple without jugular vein distention. The carotid upstroke is normal without bruits. BACK: Exam normal. LUNGS: Clear. HEART: Regular rate and rhythm. ABDOMEN: Benign without organomegaly or tenderness. EXTREMITIES: No edema. NEUROLOGIC: Exam normal. SKIN: Unremarkable. Urinary Catheter Management^: Webber Latex Free: Cath Placed During This Visit: yes, but has since been removed by the nurse Urethral Indwelling: Yes Reason for Continuing Indwelling Catheter: Decision to DC Catheter Urinary Catheter Date of Insertion: 01/10/20 Urinary Catheter Time of Insertion: 16:40 Date Urinary Catheter Removed: 01/13/20 Time Urinary Catheter Discontinued: 12:04 Data : 01/13/20 04:58 01/13/20 04:58 A&P Assessment and plan (1) Nonsustained ventricular tachycardia: Status: Acute Code(s): I47.2 - Ventricular tachycardia (2) Transaminitis: Status: Acute Code(s): R74.0 - Nonspecific elevation of levels of transaminase and lactic acid dehydrogenase [LDH] (3) Acute non-ST segment elevation myocardial infarction: Status: Acute Code(s): I21.4 - Non-ST elevation (NSTEMI) myocardial infarction (4) Cardiac arrest with ventricular fibrillation: Status: Acute Code(s): I46.9 - Cardiac arrest, cause unspecified; I49.01 - Ventricular fibrillation (5) Atrial fibrillation with RVR: Status: Resolved Code(s): I48.91 - Unspecified atrial fibrillation (6) Hyperlipidemia: Status: Acute Code(s): E78.5 - Hyperlipidemia, unspecified (7) Essential hypertension: Status: Acute Code(s): I10 - Essential (primary) hypertension (8) ASHD (arteriosclerotic heart disease): Status: Acute Code(s): I25.10 - Atherosclerotic heart disease of [place] coronary artery without angina pectoris (9) Carotid stenosis, bilateral: Status: Acute Code(s): I65.23 - Occlusion and stenosis of bilateral carotid arteries (10) CHF (congestive heart failure): Status: Acute Qualifiers: Heart failure type: combined systolic and diastolic Heart failure chronicity: acute on chronic Qualified Code(s): I50.43 - Acute on chronic combined systolic (congestive) and diastolic (congestive) heart failure Code(s): I50.9 - Heart failure, unspecified (11) Ischemic cardiomyopathy: Status: Acute Code(s): I25.5 - Ischemic cardiomyopathy (12) Statin intolerance: Status: Acute Code(s): Z78.9 - Other specified health status Additional A&P Information Moderate seems to be slowly improving. He will continue to have episodes of nonsustained VT. He should go out of the ICU today. He needs continued physical therapy. His creatinine is back down to 1.0. His heart failure is compensated. He is not having any angina. He should probably stay in the hospital a day or 2 longer for strengthening before he goes home. He told me this morning he does not want to go to a [facility]. Attestations Medical Necessity Statement*: Not applicable Coding Level of Care Code Established Pt Acute Web Ui Designer for Chantell Blanchard Patient Type Established History Comprehensive Exam Comprehensive Medical Decision Making High Complexity Diagnoses Nonsustained ventricular tachycardia I47.2 Transaminitis R74.0 Acute non-ST segment elevation myocardial infarction I21.4 Cardiac arrest with ventricular fibrillation I46.9; I49.01 Atrial fibrillation with RVR I48.91 Hyperlipidemia E78.5 Essential hypertension I10 ASHD (arteriosclerotic heart disease) I25.10 Carotid stenosis, bilateral I65.23 CHF (congestive heart failure) I50.43 Heart failure type: combined systolic and diastolic Heart failure chronicity: acute on chronic Ischemic cardiomyopathy I25.5 Statin intolerance Z78.9
[2020-01-14] MEDS: metoprolol tartrate 50 mg Tablet PO ×2 (08:19→20:27)
[2020-01-14] MEDS: pantoprazole DR 40 mg Tablet PO (08:19)
[2020-01-14] MEDS: lactobacillus 1 Tablet 1 TAB PO ×2 (08:19→20:27)
[2020-01-14] MEDS: acetaminophen 325 mg Tablet 650 MG PO ×3 (08:19→22:35)
[2020-01-14] MEDS: isosorbide mononitrate ER 30 mg Tablet PO (08:20)
[2020-01-14] MEDS: clopidogrel 75 mg Tablet PO (08:21)
[2020-01-14] MEDS: finasteride 5 mg Tablet PO (08:21)
[2020-01-14] MEDS: tamsulosin 0.4 mg Capsule PO (08:21)
[2020-01-14] MEDS: amiodarone 200 mg Tablet PO (08:21)
[2020-01-14] MEDS: aspirin 81 mg Chew Tablet PO (08:21)
[2020-01-14] MEDS: BuSPIRONE 5 mg Tablet PO ×3 (08:21→20:27)
[2020-01-14] MEDS: amlodipine 10 mg Tablet PO (08:21)
[2020-01-14] MEDS: FUROsemide 40 mg Tablet PO (08:21)
--- NOTE | 2020-01-14 10:19 | PC.CHAP ---
Pastoral Care Encounter/Spiritual Assessment Type of Contact [] Declined manager land visit [] Patient/Family/Request visit [] Outpatient visit [] Follow-up visit [] Physician referral [] Code/Alert [x] Routine visit [] Staff referral [] Actively dying [x] Patient sleeping [] Family support [] [] Out of room [] Palliative care [] [] Receiving care in room [] Pre-surgical visit [] Trauma [] Long length of stay [x] ICU visit [] Other: Relational/Emotional Strength [] Patient feels connected with others/family/visitors/staff [] Distress [] Loneliness/isolation [] Abandonment Spirituality of Patient [] Person of Riya [] Attends Confucianism of their Riya [] Believes in Prayer [] Reads Bible or Judaism materials [] There are Spiritual issues to be addressed Conduit Mechanic Interventions [] Prayer [] Active listening [] Non-anxious presence [] Spiritual/emotional support [] Crisis/trauma care [] Spiritual counseling [] Bereavement support [] Provided bereavement packet [] Provided Bible/devotional materials [] Provided toy/stuffed animal, coloring book to patient or family member [] Provided Communion [] Anointing/[place] [] Salvation [x] Completed spiritual assessment [] Other: Impact on Illness or Injury [] Angry [] Fearful [] Anxious [] Often cries [] Exhaustion [] Unable to work [] Unable to attend restoration [] Unable to walk/stand [] Unable to read [] Unable to drive [] Unable to eat/drink [] Unable to sleep [] Unable to be with family [] Patient intubated [] Other: Summary patient just awaking when arrived for visit. [place] didnreal interupt Time spent with patient
--- NOTE | 2020-01-14 11:38 | PM.PN ---
Subjective Subjective: Interval history: AM labs noted, continues to have some spikes in BP and NSVT on telemetry. Will transfer from ICU today if bed available in CSU. Patient resting comfortably in bed, no complaints, has been able to void since removal of Webber catheter. Worked well with therapy earlier. Would like to go home on discharge. Continues to have flatulence but no bowel movement yet. Medications: Reviewed: Yes Medication Review Details: Active Medications Generic Name Dose Route Start Last Admin Trade Name Freq PRN Reason Stop Dose Admin Acetaminophen 650 mg 01/10/20 16:09 01/14/20 08:19 Tylenol PO 650 mg Q6H PRN Administration Mild/Mod Pain Or Temp >/= 101 Amiodarone HCl 200 mg 01/13/20 10:30 01/14/20 08:21 Cordarone PO 200 mg DAILY BEATRIZ Administration Amlodipine Besylat e 10 mg 01/11/20 09:00 01/14/20 08:21 Norvasc PO 10 mg DAILY BEATRIZ Administration Aspirin 81 mg 01/11/20 09:00 01/14/20 08:21 Aspirin Chewable PO 81 mg DAILY BEATRIZ Administration Atorvastatin Calci um 40 mg 01/10/20 21:00 01/13/20 20:40 Lipitor PO 40 mg BEDTIME BEATRIZ Administration Buspirone HCl 5 mg 01/10/20 21:00 01/14/20 08:21 Buspar PO 5 mg TID BEATRIZ Administration Clopidogrel Bisulf ate 75 mg 01/11/20 09:00 01/14/20 08:21 Plavix PO 75 mg DAILY BEATRIZ Administration Enalapril Maleate 20 mg 01/13/20 21:00 01/14/20 08:21 Vasotec PO 20 mg Q12H BEATRIZ Administration Finasteride 5 mg 01/11/20 09:00 01/14/20 08:21 Proscar PO 5 mg DAILY BEATRIZ Administration Furosemide 40 mg 01/14/20 08:00 01/14/20 08:21 Lasix PO 40 mg DAILY@0800 BEATRIZ Administration Sodium Chloride 1,000 mls @ 100 m ls/hr 01/12/20 08:10 01/14/20 08:18 Sodium Chloride 0.9% IV Infused .Q10H BEATRIZ Infusion Isosorbide Mononit rate 30 mg 01/11/20 09:00 01/14/20 08:20 Imdur PO 30 mg DAILY BEATRIZ Administration Lactobacillus Acid ophilus 1 tab 01/13/20 21:00 01/14/20 08:19 Floranex PO 1 tab Q12H BEATRIZ Administration Lorazepam 0.5 mg 01/11/20 05:03 Ativan IVP NOW PRN ANXIETY Magnesium Hydroxid e 30 ml 01/13/20 10:41 01/13/20 10:52 Milk Of Magnesia PO 30 ml DAILY PRN Administration constipation/flat ulence Metoprolol Tartrat e 50 mg 01/13/20 21:00 01/14/20 08:19 Lopressor PO 50 mg Q12H BEATRIZ Administration Morphine Sulfate 1 mg 01/14/20 02:41 01/14/20 02:49 Morphine IVP 01/15/20 09:00 1 mg Q4H PRN Administration SEVERE PAIN Nitroglycerin 0.4 mg 01/10/20 16:09 Nitrostat SUBLINGUAL Q5M PRN CHEST PAIN Ondansetron HCl 4 mg 01/10/20 16:09 Zofran IVP Q6H PRN vomiting, or N/V if npo Pantoprazole Sodiu m 40 mg 01/11/20 09:00 01/14/20 08:19 Protonix PO 40 mg DAILY BEATRIZ Administration Tamsulosin HCl 0.4 mg 01/11/20 09:00 01/14/20 08:21 Flomax PO 0.4 mg DAILY BEATRIZ Administration No Known Allergies Allergy (Unverified 12/07/19 14:25) Vitals/I&O/Wt Last Vital Signs Temp 98.2 F 01/14/20 08:00 Pulse 88 01/14/20 08:20 Resp 20 H 01/14/20 08:00 BP 169/104 01/14/20 08:00 Pulse Ox 95 01/14/20 08:20 01/13/20 01/14/20 01/14/20 22:59 06:59 14:59 Intake Total 620 / 1860 1186.667 / 1186.667 Output Total 100 / 580 150 / 150 Balance 520 / 1280 1036.667 / 1036.667 Weight last 48 hrs Weight 103.646 kg Weight 103.646 kg Physical Exam Const: COMMON NORMALS: no apparent distress and oriented x3 GENERAL APPEARANCE: cooperative and comfortable NUTRITIONAL APPEARANCE: obese ORIENTATION/CONSCIOUSNESS: Yes awake OTHER: -Resting in bed HENMT: COMMON NORMALS: normocephalic, head/scalp atraumatic and moist oral mucous membranes HEAD & SCALP: normocephalic and atraumatic GENERAL EAR: hearing grossly impaired Laterality: diffuse Eye: COMMON NORMALS: PERRL, EOMs intact bilaterally and conjunctivae normal CONJUNCTIVA: Yes conjunctivae normal PUPIL: Yes PERRL Neck/C-Spine: COMMON NORMALS: full ROM GENERAL: Yes normal visual inspection and Yes trachea midline Resp: COMMON NORMALS: normal respiratory effort, no retractions, no use of accessory muscles and clear to auscultation bilaterally EFFORT & INSPECTION: Yes able to speak in complete sentences, Yes symmetric chest movement and No tachypneic AUSCULTATION: clear to auscultation bilaterally Cardio: COMMON NORMALS: regular rate, regular rhythm, S1 normal heart sound, S2 normal heart sound and no murmurs RATE: regular rate RHYTHM: regular rhythm HEART SOUNDS: S1 normal and S2 normal GI: COMMON NORMALS: soft to palpation and non-tender INSPECTION: Yes abdominal distension (decreased) and Yes central obesity AUSCULTATION: Yes hyperactive bowel sounds PALPATION: Yes soft, No tender, No guarding and No rigid Extremity: COMMON NORMALS: normal to inspection, full ROM and no clubbing, cyanosis or edema GENERAL: No edema Neuro: COMMON NORMALS: oriented x3, moves all extremities, no focal motor deficits and no sensory deficits noted Psych: COMMON NORMALS: mental status grossly normal, thought process normal, cooperative, affect normal and speech normal SPEECH: Yes normal speech THOUGHT PROCESS: normal thought process Skin: COMMON NORMALS: no rashes or lesions noted, no jaundice, no petechiae and no mottling GENERAL SKIN EXAM: no rashes or lesions noted Urinary Catheter Management^: Webber Latex Free: Cath Placed During This Visit: yes, but has since been removed by the nurse Urethral Indwelling: Yes Reason for Continuing Indwelling Catheter: Decision to DC Catheter Urinary Catheter Date of Insertion: 01/10/20 Urinary Catheter Time of Insertion: 16:40 Date Urinary Catheter Removed: 01/13/20 Time Urinary Catheter Discontinued: 12:04 Data : 01/13/20 04:58 01/13/20 04:58 A&P Assessment and plan (1) Cardiac arrest with ventricular fibrillation: -Went into cardiac arrest with ventricular fibrillation on 01/11 @ 5 AM; ROSC achieved after 3 minutes of CPR, dose of epinephrine, 120 J shock, dose of amiodarone 150 and dose of magnesium due to concern for possible torsades -on amiodarone drip with much better heart rate control -Cardiology on board, consult appreciated; cath on 01/13/2020 with successful angioplasty and stenting of ostial LAD -Troponins noted with positive delta over 20 Status: Acute Code(s): I46.9 - Cardiac arrest, cause unspecified; I49.01 - Ventricular fibrillation (2) Atrial fibrillation with RVR: -Presented with A. turner with RVR with heart rates in the 140s; suspect that this was triggered by acute CHF exacerbation -From history and review of medical record seems to be paroxysmal -off Cardizem drip, amiodarone drip; received dose of digoxin 250 mcg on 01/11 -on metoprolol -Telemetry monitoring -VSS; continue to monitor -Echo done 02/2019: EF=35-40%, G2DD, mild pulmonary HTN (50), mild MR, mild-moderate TR -Will need to discuss initiation of anticoagulation after coronary angiogram Status: Resolved Code(s): I48.91 - Unspecified atrial fibrillation (3) CHF (congestive heart failure): -Noted to have 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 as evidenced by increased shortness of breath, lower extremity edema, abdominal distention, elevated BNP -on IV diuresis with Bumex; so far has diuresed 7.5 L; will switch to oral Lasix -Daily weights, monitor ins and outs -VSS: continue to monitor -continue to monitor renal function and electrolytes with diuresis -Echo done 02/2019: EF=35-40%, G2DD, mild pulmonary HTN (50), mild MR, mild-moderate TR -troponin (baseline)-133; suspect demand ischemia secondary to CHF exacerbation Status: Acute Qualifiers: Heart failure chronicity: acute on chronic Heart failure type: combined systolic and diastolic Qualified Code(s): I50.43 - Acute on chronic combined systolic (congestive) and diastolic (congestive) heart failure Code(s): I50.9 - Heart failure, unspecified (4) BPH (benign prostatic hyperplasia): -Has known history of BPH with intermittent self-catheterization though has not needed to do this in quite some time -has Webber catheter for accurate ins and outs given need for aggressive IV diuresis; d/c today -continue Flomax and finasteride Status: Chronic Qualifiers: Lower urinary tract symptom detail: urinary retention Lower urinary tract symptom presence: symptoms present Qualified Code(s): N40.1 - Benign prostatic hyperplasia with lower urinary tract symptoms; R33.8 - Other retention of urine Code(s): N40.0 - Benign prostatic hyperplasia without lower urinary tract symptoms Additional A&P Information -HTN -hx of CAD s/p stenting, ischemic cardiomyopathy; on ASA, Plavix -COPD, not oxygen dependent -Bilateral carotid artery stenosis -Hyperlipidemia; intolerant of statins -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 EVANGELISTA resolved -GERD; on PPI -recently diagnosed pneumonia; has been on Levaquin; noted QTc prolongation, hold this -runs of NSVT; is on Amiodarone, continue telemetry monitoring -Deconditioning: continue PT -Constipation; on bowel regimen -fall precautions, up with assist -cardiac diet as tolerated -GI ppx with PPI -DVT ppx with heparin -Dispo: home, is his primary caregiver -Code status: FULL code -transfer to [facility] Attestations Medical Necessity Statement*: Patient requires hospitalization for continued optimization of medications and for continued PT in anticipation of discharge home. Time Spent in Patient Care: Greater than 35 minutes (>than 50% of time spent in counselling and/or direct pt care on unit). Coding Level of Care Code Acute [facility] [employer]isher for [facility] Fwd Exam Comprehensive Diagnoses Cardiac arrest with ventricular fibrillation I46.9; I49.01 Atrial fibrillation with RVR I48.91 CHF (congestive heart failure) I50.43 Heart failure chronicity: acute on chronic Heart failure type: combined systolic and diastolic BPH (benign prostatic hyperplasia) N40.1; R33.8 Lower urinary tract symptom detail: urinary retention Lower urinary tract symptom presence: symptoms present
--- NOTE | 2020-01-14 16:11 | PC.OT ---
OT TREATMENT ATTEMPTED TWICE THIS AFTERNOON. PATIENT IS SLEEPING SOUNDLY BOTH ATTEMPTS.
[2020-01-14] MEDS: lactulose oral liq 20 gm/30 mL UDC PO (20:27)
[2020-01-14] MEDS: atorvastatin 40 mg Tablet PO (20:28)
--- NOTE | 2020-01-14 20:36 | PC.NURSE ---
Pt refused suppository for constipation and expressed wanting to wait till AM to start lactulose. Educated pt on constipation and unable to have BM could potentially delay discharge. Pt was unable to recall date of last BM but reports it has been a while. Abd presents as firm, distended, and non-tender with active bowel sounds. After discussion pt willing to take lactulose but continues to refuse ducolax suppository.
[2020-01-15] VITALS (10 sets, daily range): BP systolic 110–156; BP diastolic 61–87; PULSE 62–88; RESP 14–20; TEMP 36.6–36.7; O2SAT 95–99
[2020-01-15] MEDS: lactulose oral liq 20 gm/30 mL UDC PO (01:12)
--- NOTE | 2020-01-15 09:10 | PC.SOCIAL ---
IMM Update Pg 2 of IMM given and explained to patient who verbalized understanding. Copy provided to . Copy in chart updated.
[2020-01-15] MEDS: FUROsemide 40 mg Tablet PO (09:24)
[2020-01-15] MEDS: aspirin 81 mg Chew Tablet PO (09:24)
[2020-01-15] MEDS: metoprolol tartrate 50 mg Tablet PO (09:24)
[2020-01-15] MEDS: amlodipine 10 mg Tablet PO (09:24)
[2020-01-15] MEDS: amiodarone 200 mg Tablet PO (09:24)
[2020-01-15] MEDS: isosorbide mononitrate ER 30 mg Tablet PO (09:24)
[2020-01-15] MEDS: tamsulosin 0.4 mg Capsule PO (09:25)
[2020-01-15] MEDS: clopidogrel 75 mg Tablet PO (09:25)
[2020-01-15] MEDS: lactobacillus 1 Tablet 1 TAB PO (09:26)
[2020-01-15] MEDS: pantoprazole DR 40 mg Tablet PO (09:26)
[2020-01-15] MEDS: finasteride 5 mg Tablet PO (09:26)
[2020-01-15] MEDS: BuSPIRONE 5 mg Tablet PO ×2 (09:30→15:24)
[2020-01-15] MEDS: acetaminophen 325 mg Tablet 650 MG PO (09:34)
--- NOTE | 2020-01-15 13:03 | PM.PN ---
Subjective Subjective: Interval history: Last 24 hours: No acute events. Patient remains in sinus rhythm with occasional PVCs. He had a good bowel movement yesterday after he got lactulose denies having any chest discomfort. Medications: Reviewed: Yes Medication Review Details: Current Medications Acetaminophen (Tylenol) 650 mg PO Q6H PRN PRN Reason: Mild/Mod Pain Or Temp >/= 101 Last Admin: 01/15/20 09:34 Dose: 650 mg Documented by: Amiodarone HCl (Cordarone) 200 mg PO DAILY [facility] Last Admin: 01/15/20 09:24 Dose: 200 mg Documented by: Amlodipine Besylate (Norvasc) 10 mg PO DAILY [facility] Last Admin: 01/15/20 09:24 Dose: 10 mg Documented by: Aspirin (Aspirin Chewable) 81 mg PO DAILY [facility] Last Admin: 01/15/20 09:24 Dose: 81 mg Documented by: Atorvastatin Calcium (Lipitor) 40 mg PO BEDTIME [facility] Last Admin: 01/14/20 20:28 Dose: 40 mg Documented by: Buspirone HCl (Buspar) 5 mg PO TID [facility] Last Admin: 01/15/20 09:30 Dose: 5 mg Documented by: Clopidogrel Bisulfate (Plavix) 75 mg PO DAILY [facility] Last Admin: 01/15/20 09:25 Dose: 75 mg Documented by: Enalapril Maleate (Vasotec) 20 mg PO Q12H [facility] Last Admin: 01/15/20 09:24 Dose: 20 mg Documented by: Finasteride (Proscar) 5 mg PO DAILY [facility] Last Admin: 01/15/20 09:26 Dose: 5 mg Documented by: Furosemide (Lasix) 40 mg PO DAILY@0800 [facility] Last Admin: 01/15/20 09:24 Dose: 40 mg Documented by: Isosorbide Mononitrate (Imdur) 30 mg PO DAILY [facility] Last Admin: 01/15/20 09:24 Dose: 30 mg Documented by: Lactobacillus Acidophilus (Floranex) 1 tab PO Q12H [facility] Last Admin: 01/15/20 09:26 Dose: 1 tab Documented by: Lactulose (Constulose) 20 gm PO Q6H [facility] Last Admin: 01/15/20 09:30 Dose: Not Given Documented by: Lorazepam (Ativan) 0.5 mg IVP NOW PRN PRN Reason: ANXIETY Magnesium Hydroxide (Milk Of Magnesia) 30 ml PO DAILY PRN PRN Reason: constipation/flatulence Last Admin: 01/13/20 10:52 Dose: 30 ml Documented by: Metoprolol Tartrate (Lopressor) 50 mg PO Q12H [facility] Last Admin: 01/15/20 09:24 Dose: 50 mg Documented by: Nitroglycerin (Nitrostat) 0.4 mg SUBLINGUAL Q5M PRN PRN Reason: CHEST PAIN Ondansetron HCl (Zofran) 4 mg IVP Q6H PRN PRN Reason: vomiting, or N/V if npo Pantoprazole Sodium (Protonix) 40 mg PO DAILY [facility] Last Admin: 01/15/20 09:26 Dose: 40 mg Documented by: Tamsulosin HCl (Flomax) 0.4 mg PO DAILY [facility] Last Admin: 01/15/20 09:25 Dose: 0.4 mg Documented by: Vitals/I&O/Wt Last Vital Signs Temp 97.8 F 01/15/20 08:00 Pulse 62 01/15/20 12:00 Resp 16 01/15/20 12:00 BP 110/69 01/15/20 12:00 Pulse Ox 96 01/15/20 12:00 01/14/20 01/15/20 01/15/20 22:59 06:59 14:59 Intake Total 620 / 2206.667 300 / 2506.667 500 / 500 Output Total 550 / 1200 575 / 1775 500 / 500 Balance 70 / 1006.667 -275 / 731.667 0 / 0 Weight last 48 hrs Weight 228 lb 12.8 oz Physical Exam Const: COMMON NORMALS: no apparent distress, oriented x3 and alert GENERAL APPEARANCE: cooperative and comfortable Neck/C-Spine: COMMON NORMALS: no JVD Resp: COMMON NORMALS: clear to auscultation bilaterally AUSCULTATION: clear to auscultation bilaterally, no crackles, no rales, no rhonchi and no wheezes Cardio: COMMON NORMALS: no JVD, regular rate, regular rhythm, S1 normal heart sound, S2 normal heart sound and peripheral pulses 2+ throughout PALPATION: normal PMI RATE: regular rate RHYTHM: regular rhythm HEART SOUNDS: S1 normal, S2 normal, no click, no gallops and no murmurs BRUITS: no carotid bruits PERIPHERAL PULSES: pulses 2+ throughout, radial pulses present, posterior tibial pulses present and dorsalis pedis pulses present Extremity: GENERAL: No clubbing, No cyanosis, Yes edema (trace -1+ bilateral edema) and No pallor Neuro: COMMON NORMALS: oriented x3, CN's II-XII intact bilaterally and no focal motor deficits SENSORIUM/ORIENTATION: Yes alert Psych: COMMON NORMALS: thought process normal and speech normal SPEECH: Yes normal speech THOUGHT PROCESS: normal thought process Urinary Catheter Management^: Webber Latex Free: Cath Placed During This Visit: yes, but has since been removed by the nurse Urethral Indwelling: Yes Reason for Continuing Indwelling Catheter: Decision to DC Catheter Urinary Catheter Date of Insertion: 01/10/20 Urinary Catheter Time of Insertion: 16:40 Date Urinary Catheter Removed: 01/13/20 Time Urinary Catheter Discontinued: 12:04 Data : 01/13/20 04:58 01/13/20 04:58 A&P Assessment and plan (1) ASHD (arteriosclerotic heart disease): Status post ostial LAD stenting. Continue aspirin, Plavix, statin and metoprolol. Status: Acute Code(s): I25.10 - Atherosclerotic heart disease of nikolai coronary artery without angina pectoris (2) Cardiac arrest with ventricular fibrillation: In setting of CAD- s/p LAD stenting. -Currently on Amiodarone for runs of NSVT. Status: Acute Code(s): I46.9 - Cardiac arrest, cause unspecified; I49.01 - Ventricular fibrillation (3) Atrial fibrillation with RVR: Paroxysmal atrial fibrillation. He is not on anticoagulation. -Low threshold for starting on anticoagulation. Status: Resolved Code(s): I48.91 - Unspecified atrial fibrillation (4) CHF (congestive heart failure): Fairly compensated. Continue current medications. Status: Acute Qualifiers: Heart failure type: combined systolic and diastolic Heart failure chronicity: acute on chronic Qualified Code(s): I50.43 - Acute on chronic combined systolic (congestive) and diastolic (congestive) heart failure Code(s): I50.9 - Heart failure, unspecified (5) Essential hypertension: Status: Acute Code(s): I10 - Essential (primary) hypertension (6) Hyperlipidemia: Continue statin. 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 GERD Attestations Medical Necessity Statement*: Patient may be transferred to CSU today. Potential discharge tomorrow. Coding Level of Care Code Acute [employer] Tr[employer] Technician for g Fwd Diagnoses ASHD (arteriosclerotic heart disease) I25.10 Cardiac arrest with ventricular fibrillation I46.9; I49.01 Atrial fibrillation with RVR I48.91 CHF (congestive heart failure) I50.43 Heart failure type: combined systolic and diastolic Heart failure chronicity: acute on chronic Essential hypertension I10 Hyperlipidemia E78.5
--- NOTE | 2020-01-15 14:42 | PM.DCS ---
Discharge Providers Date of Admission: 01/10/20 14:47 Date of Discharge: January 15, 2020 Attending Provider at Admission: Najma Nevarez MD Attending Provider at Discharge: Najma Nevarez MD Primary Care Provider: Johnnie Marrerono Diagnoses at Discharge Discharge Diagnosis (1) Cardiac arrest with ventricular fibrillation: Status: Acute Problem details: -Went into cardiac arrest with ventricular fibrillation on 01/11 @ 5 AM; ROSC achieved after 3 minutes of CPR, dose of epinephrine, 120 J shock, dose of amiodarone 150 and dose of magnesium due to concern for possible torsades -on amiodarone drip with much better heart rate control -Cardiology on board, consult appreciated; cath on 01/13/2020 with successful angioplasty and stenting of ostial LAD -Troponins noted with positive delta over 20 (2) Atrial fibrillation with RVR: Status: Resolved Problem details: -Presented with A. fib with RVR with heart rates in the 140s; suspect that this was triggered by acute CHF exacerbation -From history and review of medical record seems to be paroxysmal -off Cardizem drip, amiodarone drip; received dose of digoxin 250 mcg on 01/11 -on metoprolol -Telemetry monitoring -VSS; continue to monitor -Echo done 02/2019: EF=35-40%, G2DD, mild pulmonary HTN (50), mild MR, mild-moderate TR -Will need to follow up with cardiology to discuss initiation of anticoagulation (3) CHF (congestive heart failure): Status: Acute Problem details: -Noted to have 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 as evidenced by increased shortness of breath, lower extremity edema, abdominal distention, elevated BNP -on IV diuresis with Bumex; so far has diuresed 7.5 L; will switch to oral Lasix -Daily weights, monitor ins and outs -VSS: continue to monitor -continue to monitor renal function and electrolytes with diuresis -Echo done 02/2019: EF=35-40%, G2DD, mild pulmonary HTN (50), mild MR, mild-moderate TR -troponin (baseline)-133; suspect demand ischemia secondary to CHF exacerbation Qualifiers: Heart failure type: combined systolic and diastolic Heart failure chronicity: acute on chronic Qualified Code(s): I50.43 - Acute on chronic combined systolic (congestive) and diastolic (congestive) heart failure (4) BPH (benign prostatic hyperplasia): Status: Chronic Qualifiers: Lower urinary tract symptom presence: symptoms present Lower urinary tract symptom detail: urinary retention Qualified Code(s): N40.1 - Benign prostatic hyperplasia with lower urinary tract symptoms; R33.8 - Other retention of urine Other Information Additional DC diagnoses/information: -HTN -hx of CAD s/p stenting, ischemic cardiomyopathy; on ASA, Plavix -COPD, not oxygen dependent -Bilateral carotid artery stenosis -Hyperlipidemia; intolerant of statins -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 EVANGELISTA resolved -GERD; on PPI -recently diagnosed pneumonia; has been on Levaquin; noted QTc prolongation, hold this -runs of NSVT; is on Amiodarone, continue telemetry monitoring -Deconditioning: continue PT -Constipation; on bowel regimen; had large BM this AM Reason for Visit Reason for Visit: Reason For Visit: Afib with RVR;Elevated trop;CHF Exacerbation Hospital Course Hospital Course: Patient was initially admitted to ICU due to need for Cardizem drip secondary to A. fib with RVR. He was found to have elevated troponins and acute CHF exacerbation. He was started on diuresis with Bumex. Unfortunately overnight on his initial day of admission a CODE BLUE was called due to cardiac arrest. Patient required resuscitation with chest compressions, epinephrine, shock x1 and amiodarone. ROSC was achieved after 3 minutes. There was no need for intubation as patient was able to protect his airway. Cardiology was consulted and patient was maintained on amiodarone drip. He has known CAD with restenosis of ostial LAD stent from previous coronary angiogram; but unfortunately during attempt to have been on this in September 2019 patient had an episode of cardiac arrest and so procedure was aborted. With the understanding the procedure could be very risky patient agreed to intervention which Dr. Donaldson was able to do successfully with stenting of the ostial LAD. Patient did well following this procedure with noted NSVT on telemetry but no further A. fib. He was maintained on oral amiodarone continuation of his aspirin, Plavix, statin, beta-sabine. Over the course of the next several days his medications were optimized and diuresis was switched to oral Lasix once more compensated clinically. Webber catheter was discontinued and patient has been able to void independently without difficulty. He had some degree of deconditioning due to prolonged hospitalization that has since improved and plan is to return home with his with his primary caregiver. No further events occurred during his hospital stay. He has been hemodynamically stable with some noted intermittent spikes in his blood pressure that seem to be better controlled with adjustment of his oral antihypertensive regimen. He will need to follow-up with his primary care physician within [address] Donaldson in 6 weeks, to follow-up with nurse practitioner at [facility] in 1 week for post cath check. He will need to have a discussion on potential initiation of anticoagulation when he follows up with Dr. Donaldson. Discharge Summary: -Patient to follow-up with his primary care physician within 1 week -Patient to follow-up with Johanna Freeman at [facility] in 1 week for post cath check -Patient to follow-up with Dr. Donaldson in 6 to 8 weeks Physical Exam Const: COMMON NORMALS: no apparent distress and oriented x3 GENERAL APPEARANCE: cooperative and comfortable NUTRITIONAL APPEARANCE: obese ORIENTATION/CONSCIOUSNESS: Yes awake OTHER: -Resting in bed HENMT: COMMON NORMALS: normocephalic, head/scalp atraumatic and moist oral mucous membranes HEAD & SCALP: normocephalic and atraumatic GENERAL EAR: hearing grossly impaired Laterality: diffuse Eye: COMMON NORMALS: PERRL, EOMs intact bilaterally and conjunctivae normal CONJUNCTIVA: Yes conjunctivae normal PUPIL: Yes PERRL Neck/C-Spine: COMMON NORMALS: full ROM GENERAL: Yes normal visual inspection and Yes trachea midline Resp: COMMON NORMALS: normal respiratory effort, no retractions, no use of accessory muscles and clear to auscultation bilaterally EFFORT & INSPECTION: Yes able to speak in complete sentences, Yes symmetric chest movement and No tachypneic AUSCULTATION: clear to auscultation bilaterally Cardio: COMMON NORMALS: regular rate, regular rhythm, S1 normal heart sound, S2 normal heart sound and no murmurs RATE: regular rate RHYTHM: regular rhythm HEART SOUNDS: S1 normal and S2 normal GI: COMMON NORMALS: soft to palpation and non-tender INSPECTION: Yes abdominal distension (decreased) and Yes central obesity AUSCULTATION: Yes hyperactive bowel sounds PALPATION: Yes soft, No tender, No guarding and No rigid : BLADDER/KIDNEY EXAM: Yes catheter in place Extremity: COMMON NORMALS: normal to inspection, full ROM and no clubbing, cyanosis or edema GENERAL: No edema Neuro: COMMON NORMALS: oriented x3, moves all extremities, no focal motor deficits and no sensory deficits noted Psych: COMMON NORMALS: mental status grossly normal, thought process normal, cooperative, affect normal and speech normal SPEECH: Yes normal speech THOUGHT PROCESS: normal thought process Skin: COMMON NORMALS: no rashes or lesions noted, no jaundice, no petechiae and no mottling GENERAL SKIN EXAM: no rashes or lesions noted Urinary Catheter Management^: Webber Latex Free: Cath Placed During This Visit: yes, but has since been removed by the nurse Urethral Indwelling: Yes Reason for Continuing Indwelling Catheter: Decision to DC Catheter Urinary Catheter Date of Insertion: 01/10/20 Urinary Catheter Time of Insertion: 16:40 Date Urinary Catheter Removed: 01/13/20 Time Urinary Catheter Discontinued: 12:04 Discharge Data Data Completed and Pending: Completed Studies During Hospitalization Category Date Time Status INSOLVENCY PRACTITIONER request for service Routin e Exams 01/12/20 06:33 Completed XR abdomen 1V* [id number] Stat Exams 01/10/20 12:39 Completed XR chest 1V danny ble [id number] Routine Exams 01/11/20 12:00 Completed XR chest 1V danny ble [id number] Stat Exams 01/10/20 12:39 [place] [id number] Routine Ultrasound 01/10/20 15:31 Completed Vitals: Last Vital Signs Temp 97.8 F 01/15/20 14:00 Pulse 71 01/15/20 14:00 Resp 20 H 01/15/20 14:00 BP 114/61 01/15/20 14:00 Pulse Ox 96 01/15/20 14:00 Discharge Plan Discharge Patient Disposition: Home, Self-Care Condition: Stable Prescriptions: New amiodarone 200 mg Tablet 200 mg PO DAILY 30 Days Qty: 30 RF: 0 Continued buspirone 5 mg tablet 5 mg PO TID RF: 0 cyclobenzaprine 10 mg tablet 10 mg PO TID PRN (Reason: Spasms) RF: 0 tamsulosin 0.4 mg capsule 0.4 mg PO BID RF: 0 pantoprazole 40 mg tablet,delayed release (DR/EC) 40 mg PO QAM RF: 0 aspirin [Adult Low Dose Aspirin] 81 mg tablet,delayed release (DR/EC) 81 mg PO DAILY RF: 0 nitroglycerin [Nitrostat] 0.4 mg tablet, sublingual 0.4 mg SUBLINGUAL Q5M PRN (Reason: Chest Pain) RF: 0 finasteride 5 mg tablet 5 mg PO DAILY Qty: 90 RF: 3 Probiotic 2 cap PO DAILY RF: 0 furosemide 40 mg tablet 40 mg PO QAM 30 Days Qty: 30 RF: 0 isosorbide mononitrate 30 mg tablet extended release 24 hr 30 mg PO QAM 30 Days Qty: 30 RF: 0 clopidogrel 75 mg tablet 75 mg PO DAILY 30 Days Qty: 30 RF: 0 amlodipine 5 mg tablet 10 mg PO DAILY 10 Days Qty: 60 RF: 0 simvastatin 40 mg tablet 40 mg PO DAILY 30 Days Qty: 30 RF: 0 metoprolol tartrate 50 mg tablet 50 mg PO BID 30 Days Qty: 60 RF: 0 Changed enalapril maleate 20 mg tablet 20 mg PO BID 30 Days Qty: 60 RF: 0 Discontinued prednisone 10 mg tablet See Rx Instructions .ROUTE .COMPLEX RF: 0 levofloxacin 750 mg tablet 750 mg PO DAILY RF: 0 Discharge Orders: Discharge Order (Routine); Ordered 01/15/20 Ordered By: Najma Nevarez Referrals: Miguel Angel Donaldson MD [Physician] - 6 Weeks Johnnie Avendano [Primary Care Provider] - 4-7 days (Post-hospital discharge follow up) Johanna Freeman FNP [Nurse Practitioner] - 1 week (Post-cath follow up) Discharge Diet: Cardiac Discharge Activity: Resume usual activity Discharge Attestations Time Spent in Discharge Care*: greater than 30 min Specific Discharge Activities: Specific discharge activities: educating patient, educating and/or supporting family/caregiver, discussing with pcp/other providers, discussing with transplant case manager/social workers/dc planners, documenting/other paperwork and evaluating patient/reviewing data Status at Discharge: Cognitive status at discharge: cognitively intact, Behavioral status at discharge: cooperative, Functional status at discharge: uses cane/walker Overall status at discharge: patient is back to baseline Quality Metrics Clinical Quality Measures During this hospital stay, did patient experience: AMI Clinical Trial Participant: No Contraindication to aspirin (AMI): Aspirin given Contraindication to statin: Statin prescribed Contraindication to PCI: PCI performed Coding Level of Care Code Acute Records Management Director for gregory Fwrena Diagnoses Cardiac arrest with ventricular fibrillation I46.9; I49.01 Atrial fibrillation with RVR I48.91 CHF (congestive heart failure) I50.43 Heart failure type: combined systolic and diastolic Heart failure chronicity: acute on chronic BPH (benign prostatic hyperplasia) N40.1; R33.8 Lower urinary tract symptom presence: symptoms present Lower urinary tract symptom detail: urinary retention
--- NOTE | 2020-01-15 16:30 | PC.NURSE ---
Pt discharged home with . Folow-up appts to be made, Care noted for A-fib, Post-stent, A-fib provided and discussed. CHF stop light provided and discussed. Discussed ad provided a list of medications: continued, stopped, changed and new. What pt is to take tonight discussed. Pt and decided to have Amiodarone prescription filled at [facility].Eva Bullock , this nurse called the prescription in o the automated line. All questions answered
== END 2020-01-15 16:25 | disposition home or self-care (01) | DRG 246 ==
LOC: ER 12:41 → ICU 15:30
PROVIDERS: Internal Medicine Cardiovascular Disease; Student in an Organized Health Care Education/Training Program; Admitting Provider Family Medicine; Emergency Provider Family Medicine; Family Provider Family Medicine; PCP Family Medicine; Visit Provider Family Medicine
PROC: 027034Z Dilation of Coronary Artery, One Artery with Drug-eluting Intraluminal Device, Percutaneous Approach (ICD-10-PCS; principal; 2020-01-12 07:00)
DX: I13.0 Hypertensive heart and chronic kidney disease with heart failure and stage 1 through stage 4 chronic kidney disease, or unspecified chronic kidney disease (principal); I50.43 Acute on chronic combined systolic (congestive) and diastolic (congestive) heart failure; I49.01 Ventricular fibrillation; I46.9 Cardiac arrest, cause unspecified; N17.9 Acute kidney failure, unspecified; N18.3 Chronic kidney disease, stage 3 (moderate); I48.0 Paroxysmal atrial fibrillation; I25.10 Atherosclerotic heart disease of native coronary artery without angina pectoris; Z95.5 Presence of coronary angioplasty implant and graft; J44.9 Chronic obstructive pulmonary disease, unspecified; I25.5 Ischemic cardiomyopathy; E78.5 Hyperlipidemia, unspecified; G47.33 Obstructive sleep apnea (adult) (pediatric); Z79.82 Long term (current) use of aspirin; Z79.02 Long term (current) use of antithrombotics/antiplatelets; N40.1 Benign prostatic hyperplasia with lower urinary tract symptoms; R33.8 Other retention of urine; I65.23 Occlusion and stenosis of bilateral carotid arteries; F17.220 Nicotine dependence, chewing tobacco, uncomplicated; K21.9 Gastro-esophageal reflux disease without esophagitis; K58.9 Irritable bowel syndrome, unspecified; N47.2 Paraphimosis; I08.1 Rheumatic disorders of both mitral and tricuspid valves; I27.20 Pulmonary hypertension, unspecified; Z87.01 Personal history of pneumonia (recurrent); Z98.1 Arthrodesis status
CPT/HCPCS: 12345; 36415; 51702; 71045; 74018; 76705; 80048; 80053; 81003; 83735; 83880; 84484; 85025; 85610; 93005; 93454; 96372; 96375; 97161; 97166; 97530; 97535; 99283; A9270; C1725; C1769; C1874; C1887; C1894; C9600; J0171; J0282; J1160; J1644; J1650; J2001; J2250; J2270; J3010; J3490; J7030; J7060; Q0163; Q9967

== ENCOUNTER 2020-01-17 17:37 | Emergency (ER) | payer MEDICARE, SELFPAY ==
[2020-01-17 17:43] VITALS: BP 149/62; PULSE 72; RESP 18; TEMP 36.3; O2SAT 98; BMI 31.4
--- NOTE | 2020-01-17 18:09 | XR_ITS ---
WS: [id number] Portable AP upright chest, 01/17/2020 Clinical Data: cough/congestion Comparison: Portable chest, 01/11/2020 Findings: No nodules, masses or effusions are seen. The heart is large. The pulmonary vascularity is not increased. No pneumonia or pneumothorax is seen. There is atelectasis in the left lower lobe with a possible left cardiophrenic fat pad or cyst. There is left pleural reaction. There is a lower cerv ical anterior cervical disc fusion. XR/XR chest 1V portable [id number] Impression: Cardiomegaly and left lower lobe atelectasis.
--- NOTE | 2020-01-17 18:09 | ECG_ITS ---
Measurements Intervals [place] Rate: 73 P: 51 NC: 159 QRS: -79 QRSD: 99 T: 39 QT: 423 QTc: 469 SINUS RHYTHM LEFT AXIS DEVIATION [QRS AXIS < -30] INCOMPLETE RIGHT BUNDLE BRANCH BLOCK [90+ ms QRS DURATION, TERMINAL R IN V1/V2, 40+ ms S IN I/aVL/V4/V5/V6] ANTEROSEPTAL MYOCARDIAL INFARCTION , OF INDETERMINATE AGE [40+ ms Q WAVE IN V1-V4] Compared to ECG 01/11/2020 07:43:11 Left-axis deviation now present Right-axis deviation no longer present Myocardial infarct finding still present Electronically Signed On 01-18-2020 10:41:47 SCOURING MACHINE TENDER by Miguel Angel Donaldson M.D. [email or web address]
--- NOTE | 2020-01-17 18:23 | ED_ITS ---
Entered by Lilly Joe, acting as scribe for Ann Broderick HPI - Chest Pain General: Chief Complaint: Chest Pain Stated Complaint: chest pains/sob Time Seen by Provider: 01/17/20 18:22 Source: patient and family Mode of arrival: ambulatory Limitations: no limitations History of Present Illness: HPI narrative: 79 yo male presents with chest pain. pt states he felt pains in his chest that radiated to his neck and fullness. pt states his spouse gave him a nitro, he then felt relief. pt states this occurred recently and they did chest compressions and then Dr. Donaldson placed a stent. pt denies any other symptoms at this time. MD complaint: chest pain Onset (ago): day(s) (today) Timing of current episode: constant Onset: during rest Pain location: substernal Pain radiation: neck Severity: moderate Quality: aching, heaviness, sharp, fullness and other (stabbing) Relieving factors: nothing Exacerbating factors: other (deep breaths) Context: recent surgery (stent placed by Dr. Donaldson) Associated symptoms: Reports abdominal pain and other (drainage); Deny diaphoresis or fever(s) Treatment prior to arrival: nitroglycerin Review of Systems General: Reports: 10 or more systems reviewed and unremarkable except in HPI and below Const: Denies: fever, chills, body aches, fatigue, malaise or diaphoresis Eyes: Denies: change in vision or blurry vision ENMT: Denies: enlarged tonsils Card: Reports: chest pain Resp: Reports: productive cough GI: Reports: abdominal pain : Denies: flank pain, difficulty urinating, painful urination, urinary frequency, urinary urgency, decreased urine ouput, urinary incontinence or blood in urine Musc: Denies: neck pain, back pain, extremity pain, extremity swelling, joint pain, joint swelling, joint warmth or joint stiffness Skin/Breast: Denies: rash, skin tenderness or yellow skin Neuro: Denies: headache, numbness in extremities, weakness in extremities, c hanges in sensation, lack of coordination, difficulty walking, dizziness, vertigo or confusion Endo: Denies: excessive thirst, tired all the time, cold intolerance, excessive sweating, flushing or hot flashes Alexis/Lymph: Denies: easy bruising, easy bleeding, petechiae or enlarged lymph nodes All/Imm: Denies: hives, throat swelling, tongue swelling, facial swelling or acute wheezing PFSH ED PFSH: Medical History (Updated 01/17/20 @ 20:47 by Ann Broderick) Acute non-ST segment elevation myocardial infarction ASHD (arteriosclerotic heart disease) BPH (benign prostatic hyperplasia) Carotid stenosis, bilateral Chewing tobacco use CHF (congestive heart failure) -Noted to have 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 as evidenced by increased shortness of breath, lower extremity edema, abdominal distention, elevated BNP -on IV diuresis with Bumex; so far has diuresed 7.5 L; will switch to oral Lasix -Daily weights, monitor ins and outs -VSS: continue to monitor -continue to monitor renal function and electrolytes with diuresis -Echo done 02/2019: EF=35-40%, G2DD, mild pulmonary HTN (50), mild MR, mild- moderate TR -troponin (baseline)-133; suspect demand ischemia secondary to CHF exacerbation Essential hypertension GERD (gastroesophageal reflux disease) Hyperlipidemia IBS (irritable bowel syndrome) Ischemic cardiomyopathy Nonsustained ventricular tachycardia Paraphimosis SOB (shortness of breath) Spinal stenosis Statin intolerance Surgical History S/P angioplasty with stent S/P cervical spinal fusion Social History Smoking and tobacco status: former smoker Alcohol intake: current Alcohol intake frequency: 0-2 Drinks per Day Alcohol type: beer Household members: spouse Marital status: service: No Current occupational status: retired Current gender identity: Male Physical Exam Const: COMMON NORMALS: no apparent distress, oriented x3, no limitations, healthy appearing and well nourished EXAM LIMITATIONS: no altered mental status GENERAL APPEARANCE: cooperative, well kempt and well developed ORIENTATION/CONSCIOUSNESS: Yes awake HENMT: COMMON NORMALS: normocephalic, head/scalp atraumatic, hearing grossly normal bilaterally, external ears normal, EAC's normal, external nose normal and moist oral mucous membranes HEAD & SCALP: normal to inspection, normocephalic and atraumatic FACE & SINUS: normal facial exam and face symmetric NOSE: external nose normal and nares normal EXTERNAL EAR: Yes external ears normal EXTERNAL AUDITORY CANAL: EAC's normal MOUTH: oral and palatal mucosa normal and tongue normal Eye: COMMON NORMALS: PERRL, EOMs intact bilaterally, conjunctivae normal and no scleral icterus GENERAL EYE: normal appearance of both eyes and normal light reflex CONJUNCTIVA: Yes conjunctivae normal SCLERA: sclerae normal CORNEA: Yes corneas normal PUPIL: Yes PERRL DIRECT OPHTHALMOSCOPY: Yes normal light reflex Neck/C-Spine: COMMON NORMALS: full ROM, no lymphadenopathy, supple, no meningeal signs and no JVD GENERAL: Yes normal visual inspection and Yes trachea midline CERVICAL SPINE: Yes cervical ROM normal Resp: COMMON NORMALS: normal respiratory effort, no retractions, no use of accessory muscles and clear to auscultation bilaterally EFFORT & INSPECTION: Yes able to speak in complete sentences AUSCULTATION: clear to auscultation bilaterally Cardio: COMMON NORMALS: no JVD, regular rate, regular rhythm, S1 normal heart sound, S2 normal heart sound, no gallops, no clicks, no murmurs and no rub J UGULAR VENOUS DISTENTION: no JVD RATE: regular rate RHYTHM: regular rhythm HEART SOUNDS: S1 normal and S2 normal GI: COMMON NORMALS: soft to palpation, non-tender, no hepatosplenomegaly and no masses INSPECTION: Yes normal to inspection PALPATION: Yes soft and Yes no hepatosplenomegaly : COMMON NORMALS: Yes no CVA tenderness BLADDER/KIDNEY EXAM: Yes no CVA tenderness Back/Pelvis: COMMON NORMALS: no CVA tenderness, thoracic and lumbar spine normal to inspection, no thoracic nor lumbar tenderness and thoraco-lumbar ROM normal Extremity: COMMON NORMALS: normal to inspection, full ROM, normal capillary refill, no joint enlargement, no clubbing, cyanosis or edema and no calf tenderness Neuro: COMMON NORMALS: oriented x3, CN's II-XII intact bilaterally, moves all extremities, no focal motor deficits and no sensory deficits noted MENINGEAL SIGNS: Yes no meningeal signs Psych: COMMON NORMALS: mental status grossly normal, thought process normal, cooperative, affect normal, speech normal and activity/motor behavior normal APPEARANCE: Yes well kempt SPEECH: Yes normal speech THOUGHT PROCESS: normal thought process Skin: COMMON NORMALS: no rashes or lesions noted, skin turgor normal, no jaundice, no petechiae and no mottling GENERAL SKIN EXAM: no rashes or lesions noted and turgor normal Course ED course: 1945 -I discussed with the patient the need for admission to further evaluate his chest pain as well as a consultation by entertainer or variety artist but he is refusing. He feels the symptoms are just secondary to a chest cold and is demanding antibiotics and then to be discharged. After much discussion and review of everything that is happened to him in the past month he is agreeable to at least staying for another EKG and troponin but is already telling me no matter what we find he is going to go home. I will readdress the risks of leaving without complete evaluation at that time with him but I anticipate he is not going to change his mind and will leave AGAINST MEDICAL ADVICE. Vital Signs: Vital signs: Vital Signs Temperature 97.3 F L 01/17/20 17:43 Pulse Rate 81 01/17/20 21:11 Respiratory Rate 18 01/17/20 21:11 Blood Pressure 129/64 01/17/20 21:11 Pulse Oximetry 98 01/17/20 21:11 MDM - Chest Pain MDM Narrative: Medical decision making narrative: 2044 -Mr. Matos is a nice 79-year-old male who comes in complaining of chest pain. He states that it feels like a gastric bubble that he just could not get it to resolve until he took 1 nitro. Since that time he is been chest pain-free. The patient has been currently in the hospital for a V. fib arrest thought to be secondary to an occluded stent in his heart. Patient states his pain is somewhat like before but not quite the same. He has no swelling, pleuritic type component tachycardia or hypoxia to suggest pulmonary embolism. The patient wanted to leave earlier but reluctantly stay for further testing. Per the hospital chest pain protocol his cardiac enzymes have not risen in a substantial amount and his EKG is unchanged from previous. Nonetheless I recommended he stay for further cardiopulmonary testing to include a cardiac rule out with a possible stress test or cardiology consult. If thought necessary further work-up for pulmonary embolism or dissection but the patient is refusing. Clinically I think most likely the patient's symptoms are due to his chest wall as he had CPR and he states his chest is very sore to the touch. Nonetheless I have reviewed with him the myriad of causes for this but he is demanding to go home at this time with something for congestion as he states he is coughing up green sputum. I see no evidence of pneumonia on chest x-ray. I will go ahead and place the patient on an antibiotic but he is aware that I feel he stay for further care but despite this he wants to leave and he understands he is leaving AGAINST MEDICAL ADVICE at risk of or severe permanent disability by doing so. Medical Records: Attestation: I reviewed the patient's medical records. Medical records narrative: I reviewed all old records including H&P, cath report and discharge summary from his hospital visit this month. Lab Data: Attestation: I reviewed the patient's lab results. Labs: Lab Results 01/17/20 01/17/20 01/17/20 Range/Units 18:40 18:40 18:40 WBC 8.7 (4.0-10.0) 10^3/ uL RBC 4.37 (4.1-5.3) 10^6/u L Hgb 13.0 (11.7-16.6) g/dL Hct 38.6 L (42.0-52.0) % MCV 88.3 (80-94) fL MCH 29.7 (28.0-34.0) pg MCHC 33.7 (30.0-36.0) g/dL RDW 13.2 (12.1-15.1) % Plt Count 172 (130-400) 10^3/c mm MPV 10.8 H (7.4-10.4) fL Neut % (Auto) 83.4 % Lymph % (Auto) 7.1 % [place] % (Auto) 7.7 % Eos % (Auto) 1.0 % Baso % (Auto) 0.2 % Neut # (Auto) 7.3 (1.8-7.7) 10^3/u L Lymph # (Auto) 0.6 L (0.8-4.8) 10^3/u L [place] # (Auto) 0.7 (0.2-0.9) 10^3/u L Eos # (Auto) 0.1 (0.0-0.8) 10^3/u L Baso # (Auto) 0.0 (0.0-0.1) 10^3/u L Nucleated RBC % (a uto) 0 % Nucleated RBCs # 0.0 /100WBC Sodium 139 (136-145) mmol/L Potassium 4.1 (3.5-5.1) mmol/L Chloride 104 (98-107) mmol/L Carbon Dioxide 22 (22-29) mmol/L Anion Gap 17.1 (5-19) BUN 21 (8-23) mg/dL Creatinine 1.3 H (0.7-1.2) mg/dL Glucose 137 H (65-115) mg/dL Calcium 8.5 (8.5-10.5) mg/dL Total Bilirubin 0.4 (0.15-1.2) mg/dL AST 13 (0-40) U/L ALT 22 (0-41) U/L Alkaline Phosphata se 74 (40-130) IU/L Troponin T Baselin e 50 H (0-15) ng/mL Troponin T 120 Min nolvia (0-15) ng/mL Delta Troponin T (0-10) ABS# NT-Pro-B Natriuret Pep (0-450) pg/mL Total Protein 5.5 L (6.6-8.7) g/dL Albumin 3.6 (3.5-5.2) g/dL Globulin 1.9 (1.3-4.6) g/dL 01/17/20 01/17/20 Range/Units 18:40 20:00 WBC (4.0-10.0) 10^3/ uL RBC (4.1-5.3) 10^6/u L Hgb (11.7-16.6) g/dL Hct (42.0-52.0) % MCV (80-94) fL MCH (28.0-34.0) pg MCHC (30.0-36.0) g/dL RDW (12.1-15.1) % Plt Count (130-400) 10^3/c mm MPV (7.4-10.4) fL Neut % (Auto) % Lymph % (Auto) % [place] % (Auto) % Eos % (Auto) % Baso % (Auto) % Neut # (Auto) (1.8-7.7) 10^3/u L Lymph # (Auto) (0.8-4.8) 10^3/u L [place] # (Auto) (0.2-0.9) 10^3/u L Eos # (Auto) (0.0-0.8) 10^3/u L Baso # (Auto) (0.0-0.1) 10^3/u L Nucleated RBC % (a uto) % Nucleated RBCs # /100WBC Sodium (136-145) mmol/L Potassium (3.5-5.1) mmol/L Chloride (98-107) mmol/L Carbon Dioxide (22-29) mmol/L Anion Gap (5-19) BUN (8-23) mg/dL Creatinine (0.7-1.2) mg/dL Glucose (65-115) mg/dL Calcium (8.5-10.5) mg/dL Total Bilirubin (0.15-1.2) mg/dL AST (0-40) U/L ALT (0-41) U/L Alkaline Phosphata se (40-130) IU/L Troponin T Baselin e (0-15) ng/mL Troponin T 120 Min nolvia 53.77 H (0-15) ng/mL Delta Troponin T 3.77 (0-10) ABS# NT-Pro-B Natriuret Pep 2265 H (0-450) pg/mL Total Protein (6.6-8.7) g/dL Albumin (3.5-5.2) g/dL Globulin (1.3-4.6) g/dL Imaging Data^: CXR: My impression: Cardiomegaly otherwise no acute cardiopulmonary findings. EKG Data^: EKG 1: Attestation: I personally reviewed and interpreted this EKG as follows: EKG interpretation date: 01/17/20 Interpretation: Normal sinus rhythm with a ventricular rate of 70 beats a minute, normal intervals, left anterior fascicular block, mild ST segment depression in 2, aVF and V6 similar to previous EKG on 2019 0743 EKG 2: Attestation: I personally reviewed and interpreted this EKG as follows: EKG interpretation date: 01/17/20 EKG interpretation time: 20:01 Interpretation: Normal sinus rhythm at 73 beats a minute, Q waves anteriorly, ST segment depression 2, aVF and V6 consistent with previous. Discharge Plan Discharge Patient Disposition: Left Against Medical Advice Clinical Impression: Chest pain Qualifiers: Chest pain type: unspecified Qualified Code(s): R07.9 - Chest pain, unspecified Condition: Stable Prescriptions: New cefdinir 300 mg capsule 300 mg PO Q12H 10 Days Qty: 20 RF: 0 No Action buspirone 5 mg tablet 5 mg PO TID RF: 0 cyclobenzaprine 10 mg tablet 10 mg PO TID PRN (Reason: Spasms) RF: 0 tamsulosin 0.4 mg capsule 0.4 mg PO BID RF: 0 pantoprazole 40 mg tablet,delayed release (DR/EC) 40 mg PO QAM RF: 0 aspirin [Adult Low Dose Aspirin] 81 mg tablet,delayed release (DR/EC) 81 mg PO DAILY RF: 0 nitroglycerin [Nitrostat] 0.4 mg tablet, sublingual 0.4 mg SUBLINGUAL Q5M PRN (Reason: Chest Pain) RF: 0 finasteride 5 mg tablet 5 mg PO DAILY Qty: 90 RF: 3 Probiotic 2 cap PO DAILY RF: 0 amiodarone 200 mg Tablet 200 mg PO DAILY 30 Days Qty: 30 RF: 0 furosemide 40 mg tablet 40 mg PO QAM 30 Days Qty: 30 RF: 0 enalapril maleate 20 mg tablet 20 mg PO BID 30 Days Qty: 60 RF: 0 isosorbide mononitrate 30 mg tablet extended release 24 hr 30 mg PO QAM 30 Days Qty: 30 RF: 0 clopidogrel 75 mg tablet 75 mg PO DAILY 30 Days Qty: 30 RF: 0 amlodipine 5 mg tablet 10 mg PO DAILY 10 Days Qty: 60 RF: 0 simvastatin 40 mg tablet 40 mg PO DAILY 30 Days Qty: 30 RF: 0 metoprolol tartrate 50 mg tablet 50 mg PO BID 30 Days Qty: 60 RF: 0 Discharge Orders: Discharge Order (Routine); Ordered 01/17/20 Ordered By: Ann Broderick Referrals: Miguel Angel Donaldson MD [Physician] - 1-3 days Johnnie Avendano [Primary Care Provider] - Discharge Diet: Advance as tolerated Discharge Activity: Limit activity as instructed Patient Instructions: Chest Pain (ED) Activity Restrictions/Additional Instructions: You're leaving AGAINST MEDICAL ADVICE and are at risk for or severe permanent disability by doing so. You are more than welcome to return at any time for recheck and for further evaluation and care suture change you change your mind. You have been offered further evaluation and care of your heart which you have declined. Of course any heart problem can be life-threatening so if your symptoms change or worsen in any way you are more than welcome to return to the ER for further evaluation and care. Stand Alone Forms: Against Medical Advice Discharge Date/Time: 01/17/20 21:12 Coding Level of Care Code ED Barrel Lathe Operator for Chg Fwd Exam Comprehensive The documentation recorded by the Heath frias Bridget Annette, accurately reflects the service I personally performed and the decisions made by , Ann Broderick Jan 17, 2020 17:37
[2020-01-17 18:54] LABS: Basophils % 0.2 %; Eosinophils # 0.1 10^3/uL (0.0-0.8); Hematocrit 38.6 % (42.0-52.0); Lymphocytes # 0.6 10^3/uL (0.8-4.8); Lymphocytes % 7.1 %; Mean Corpuscular HGB Conc 33.7 g/dL (30.0-36.0); Mean Corpuscular Hemoglobin 29.7 pg (28.0-34.0); Mean Corpuscular Volume 88.3 fL (80-94); Mean Platelet Volume 10.8 fL (7.4-10.4); Monocytes # 0.7 10^3/uL (0.2-0.9); Monocytes % 7.7 %; Neutrophils # 7.3 10^3/uL (1.8-7.7); Neutrophils % 83.4 %; Nucleated Red Blood Cells % 0 %; Platelet Count 172 10^3/cmm (130-400); Red Blood Count 4.37 10^6/uL (4.1-5.3); Red Cell Distribution Width 13.2 % (12.1-15.1); White Blood Count 8.7 10^3/uL (4.0-10.0)
[2020-01-17 19:02] LABS: Troponin(5th) Baseline 50 ng/mL (0-15)
[2020-01-17 19:05] LABS: Alanine Aminotransferase 22 U/L (0-41); Albumin Level 3.6 g/dL (3.5-5.2); Alkaline Phosphatase 74 IU/L (40-130); Anion Gap 17.1 (5-19); Aspartate Amino Transferase 13 U/L (0-40); Blood Urea Nitrogen 21 mg/dL (8-23); Calcium 8.5 mg/dL (8.5-10.5); Carbon Dioxide 22 mmol/L (22-29); Chloride 104 mmol/L (98-107); Globulin 1.9 g/dL (1.3-4.6); Glucose 137 mg/dL (65-115); Potassium 4.1 mmol/L (3.5-5.1); Sodium 139 mmol/L (136-145); Total Bilirubin 0.4 mg/dL (0.15-1.2); Total Protein 5.5 g/dL (6.6-8.7)
[2020-01-17 19:59] LABS: NT Pro B Type Natriuretic Pept 2265 pg/mL (0-450)
[2020-01-17] MEDS: lidocaine 2% viscous 15 ML, aluminum-mag hydrox-simethicon 30 ML, sucralfate oral liq 1 GM PO (20:03)
[2020-01-17] MEDS: cefTRIAXone 1,000 MG in sodium chloride 0.9% (plus) 50 ML 100 MG IV (20:13)
[2020-01-17 20:40] LABS: Troponin 5 2HR 53.77 ng/mL (0-15); Troponin 5 2HR Delta 3.77 ABS# (0-10)
[2020-01-17 21:11] VITALS: BP 129/64; PULSE 81; RESP 18; O2SAT 98
--- NOTE | 2020-01-20 13:09 | DCPLANNER ---
apartment leasing manager had message to schedule a followup appointment for patient with [facility]. Patient has a follow up appointment scheduled for Friday, December at 11:00 with Johanna Freeman.
--- NOTE | 2020-01-25 15:09 | DCPLANNER ---
Patient did attend appointment scheduled for 01.21.20 with [facility].
== END 2020-01-17 21:12 | disposition left against medical advice (07) ==
PROVIDERS: Physician Assistant; Emergency Provider Emergency Medicine; Family Provider Family Medicine; PCP Family Medicine
DX: R07.9 Chest pain, unspecified (principal); I11.0 Hypertensive heart disease with heart failure; I50.40 Unspecified combined systolic (congestive) and diastolic (congestive) heart failure; I25.2 Old myocardial infarction; I25.10 Atherosclerotic heart disease of native coronary artery without angina pectoris; E78.5 Hyperlipidemia, unspecified; I25.5 Ischemic cardiomyopathy; Z95.5 Presence of coronary angioplasty implant and graft; Z53.29 Procedure and treatment not carried out because of patient's decision for other reasons
CPT/HCPCS: 36415; 71045; 80053; 83880; 84484; 85025; 93005; 96365; 99283; J0696

== ENCOUNTER → 2020-01-21 11:45 | Outpatient (BNVA) | payer MEDICARE, SELFPAY | PROVIDERS: Family Provider Family Medicine; PCP Family Medicine; Visit Provider Nurse Practitioner Family | DX: I25.10 Atherosclerotic heart disease of native coronary artery without angina pectoris (principal); I50.43 Acute on chronic combined systolic (congestive) and diastolic (congestive) heart failure | CPT/HCPCS: 80048 ==

== ENCOUNTER 2020-01-27 09:36 | Inpatient (IN) | payer MEDICARE, SELFPAY ==
[2020-01-27] VITALS (10 sets, daily range): BP systolic 100–120; BP diastolic 61–76; PULSE 59–70; RESP 14–18; TEMP 36.6–36.8; O2SAT 93–99; BMI 31.0
--- NOTE | 2020-01-27 10:14 | ED_ITS ---
Entered by Lilly Joe, acting as scribe for Dustin Doyle DO HPI - Chest Pain General: Chief Complaint: Chest Pain Stated Complaint: Chest pains Time Seen by Provider: 01/27/20 10:13 Source: patient and family Mode of arrival: ambulatory Limitations: no limitations History of Present Illness: HPI narrative: 79 yo male presents with chest pains. pt states this started yesterday. pt states the pain is located on the R chest. pt states he was recently dx with pneumonia. pt states he had a stent placed 2 weeks ago. pt states nothing makes this better or worse. pt denies any other symptoms at this time. MD complaint: chest pain Onset (ago): day(s) (yesterday) Timing of current episode: constant and still present Prior episodes: Yes Onset: during rest Pain location: right chest Pain radiation: none Severity: mild Quality: heaviness Relieving factors: nitroglycerin Exacerbating factors: other (cough) Context: recent surgery (stent placed 2 weeks ago) Associated symptoms: Reports dyspnea, fever(s) and other (cough); Deny abdominal pain, nausea, palpitations, syncope or vomiting Treatment prior to arrival: nitroglycerin Review of Systems Const: Reports: fever, chills, body aches, fatigue and malaise; Denies: night sweats Eyes: Denies: change in vision or blurry vision ENMT: Denies: enlarged tonsils Card: Reports: shortness of breath on exertion; Denies: palpitations, irregular heart rhythm, edema, syncope, shortness of breath when lying down or leg pain with exertion Resp: Reports: shortness of breath, productive cough, wheezing, pain on inspiration, change in phlegm color and chest congestion GI: Denies: abdominal pain, nausea, vomiting, vomiting blood, coffee grounds in vomit, difficulty swallowing, heartburn/indigestion, diarrhea, constipation, cramping, blood in stool or black tarry stool : Denies: flank pain, difficulty urinating, painful urination, urinary frequency, urinary urgency, urinary incontinence or blood in urine Musc: Denies: joint warmth Neuro: Denies: headache, numbness in extremities, weakness in extremities, changes in sensation, lack of coordination, difficulty walking, frequent falls, dizziness, vertigo or confusion Psych: Denies: anxiety, depression, loss of interest, visual hallucinations, auditory hallucinations, suicidal ideation or homicidal ideation Endo: Denies: excessive urination, excessive thirst, tired all the time or cold intolerance Alexis/Lymph: Denies: easy bruising, easy bleeding, petechiae, enlarged lymph nodes or tender lymph nodes All/Imm: Denies: acute wheezing PFSH ED PFSH: Medical History (Updated 01/27/20 @ 16:11 by Dustin Doyle DO) Acute non-ST segment elevation myocardial infarction ASHD (arteriosclerotic heart disease) BPH (benign prostatic hyperplasia) Carotid stenosis, bilateral Chewing tobacco use CHF (congestive heart failure) Essential hypertension GERD (gastroesophageal reflux disease) Hyperlipidemia IBS (irritable bowel syndrome) Ischemic cardiomyopathy Nonsustained ventricular tachycardia Paraphimosis SOB (shortness of breath) Spinal stenosis Statin intolerance Surgical History S/P angioplasty with stent S/P cervical spinal fusion Social History Smoking and tobacco status: former smoker Alcohol intake: current Alcohol intake frequency: 0-2 Drinks per Day Alcohol type: beer Household members: spouse Marital status: service: No Current occupational status: retired Current gender identity: Male Physical Exam Const: COMMON NORMALS: no apparent distress GENERAL APPEARANCE: cooperative and comfortable ORIENTATION/CONSCIOUSNESS: Yes awake, Yes oriented to person, Yes oriented to place and Yes oriented to time HENMT: COMMON NORMALS: normocephalic, head/scalp atraumatic, hearing grossly normal bilaterally, external ears normal, EAC's normal, TM's normal bilaterally, nasal mucous membranes and turbinates normal, moist oral mucous membranes and oropharynx normal HEAD & SCALP: normocephalic and atraumatic NOSE: nasal mucous membranes and turbinates normal EXTERNAL EAR: Yes external ears normal EXTERNAL AUDITORY CANAL: EAC's normal TYMPANIC MEMBRANE: TM's normal bilaterally Eye: COMMON NORMALS: PERRL, EOMs intact bilaterally, conjunctivae normal and no scleral icterus CONJUNCTIVA: Yes conjunctivae normal PUPIL: Yes PERRL Neck/C-Spine: COMMON NORMALS: full ROM, no lymphadenopathy, supple and no JVD Lymph: LYMPHATIC: no lymphadenopathy noted and no lymphedema noted Resp: COMMON NORMALS: normal respiratory effort, no retractions, no use of accessory muscles and clear to auscultation bilaterally AUSCULTATION: clear to auscultation bilaterally Cardio: COMMON NORMALS: no JVD, regular rate, regular rhythm and no murmurs RATE: regular rate RHYTHM: regular rhythm GI: COMMON NORMALS: soft to palpation and no hepatosplenomegaly AUSCULTATION: Yes normoactive bowel sounds PALPATION: Yes soft, No tender, No guarding and Yes no hepatosplenomegaly Extremity: COMMON NORMALS: normal to inspection, normal capillary refill, no clubbing, cyanosis or edema, no calf tenderness and no pedal edema GENERAL: Yes edema (1 plus bilateral legs) Neuro: SENSORIUM/ORIENTATION: Yes oriented to person, Yes oriented to place and Yes oriented to time Skin: COMMON NORMALS: no rashes or lesions noted GENERAL SKIN EXAM: no rashes or lesions noted Course ED course: Patient has chest pain but is very reproducible with deep inspiration palpation across the chest test and with cough he did recently have a stent placed to talk to Dr. Donaldson with a quite a difficult time that he is a little concerned about this patient. Even the fact that he is failed outpatient antibiotic still has bilateral pneumonia think he probably should be admitted for aggressive antibiotics and pulmonary toilet discussed with hospitalist they will place him on admission and follow him in the floor. Vital Signs: Vital signs: Vital Signs Temperature 97.8 F 01/27/20 09:51 Pulse Rate 65 01/27/20 16:00 Respiratory Rate 17 01/27/20 16:00 Blood Pressure 100/65 01/27/20 16:00 Pulse Oximetry 99 01/27/20 16:00 MDM - Chest Pain Lab Data: Labs: Lab Results 01/27/20 01/27/20 01/27/20 Range/Units 10:12 10:12 10:12 WBC 8.3 (4.0-10.0) 10^3/ uL RBC 4.20 (4.1-5.3) 10^6/u L Hgb 12.9 (11.7-16.6) g/dL Hct 38.8 L (42.0-52.0) % MCV 92.4 (80-94) fL MCH 30.7 (28.0-34.0) pg MCHC 33.2 (30.0-36.0) g/dL RDW 12.8 (12.1-15.1) % Plt Count 208 (130-400) 10^3/c mm MPV 11.7 H (7.4-10.4) fL Neut % (Auto) 73.6 % Lymph % (Auto) 16.3 % [place] % (Auto) 9.4 % Eos % (Auto) 0.1 % Baso % (Auto) 0.0 % Neut # (Auto) 6.1 (1.8-7.7) 10^3/u L Lymph # (Auto) 1.4 (0.8-4.8) 10^3/u L [place] # (Auto) 0.8 (0.2-0.9) 10^3/u L Eos # (Auto) 0.0 (0.0-0.8) 10^3/u L Baso # (Auto) 0.0 (0.0-0.1) 10^3/u L Nucleated RBC % (a uto) 0 % Nucleated RBCs # 0.0 /100WBC Sodium 135 L (136-145) mmol/L Potassium 4.3 (3.5-5.1) mmol/L Chloride 101 (98-107) mmol/L Carbon Dioxide 25 (22-29) mmol/L Anion Gap 13.3 (5-19) BUN 14 (8-23) mg/dL Creatinine 1.3 H (0.7-1.2) mg/dL Glucose 91 (65-115) mg/dL Calcium 8.4 L (8.5-10.5) mg/dL Total Bilirubin 0.5 (0.15-1.2) mg/dL AST 15 (0-40) U/L ALT 17 (0-41) U/L Alkaline Phosphata se 89 (40-130) IU/L Troponin T Baselin e 43 H (0-15) ng/mL Troponin T 120 Min [place] (0-15) ng/mL Delta Troponin T (0-10) ABS# NT-Pro-B Natriuret Pep 3547 H (0-450) pg/mL Total Protein 5.6 L (6.6-8.7) g/dL Albumin 3.4 L (3.5-5.2) g/dL Globulin 2.2 (1.3-4.6) g/dL 01/27/20 Range/Units 12:07 WBC (4.0-10.0) 10^3/ uL RBC (4.1-5.3) 10^6/u L Hgb (11.7-16.6) g/dL Hct (42.0-52.0) % MCV (80-94) fL MCH (28.0-34.0) pg MCHC (30.0-36.0) g/dL RDW (12.1-15.1) % Plt Count (130-400) 10^3/c mm MPV (7.4-10.4) fL Neut % (Auto) % Lymph % (Auto) % [place] % (Auto) % Eos % (Auto) % Baso % (Auto) % Neut # (Auto) (1.8-7.7) 10^3/u L Lymph # (Auto) (0.8-4.8) 10^3/u L [place] # (Auto) (0.2-0.9) 10^3/u L Eos # (Auto) (0.0-0.8) 10^3/u L Baso # (Auto) (0.0-0.1) 10^3/u L Nucleated RBC % (a uto) % Nucleated RBCs # /100WBC Sodium (136-145) mmol/L Potassium (3.5-5.1) mmol/L Chloride (98-107) mmol/L Carbon Dioxide (22-29) mmol/L Anion Gap (5-19) BUN (8-23) mg/dL Creatinine (0.7-1.2) mg/dL Glucose (65-115) mg/dL Calcium (8.5-10.5) mg/dL Total Bilirubin (0.15-1.2) mg/dL AST (0-40) U/L ALT (0-41) U/L Alkaline Phosphata se (40-130) IU/L Troponin T Baselin e (0-15) ng/mL Troponin T 120 Min [place] 42.51 H (0-15) ng/mL Delta Troponin T -0.49 L (0-10) ABS# NT-Pro-B Natriuret Pep (0-450) pg/mL Total Protein (6.6-8.7) g/dL Albumin (3.5-5.2) g/dL Globulin (1.3-4.6) g/dL Imaging Data^: CXR: Radiologist's impression: [address] [address] XRay Report Signed Patient: Luis Matos #: [id number] : 2Acct#:[id number] Age/Sex: 79 / MADM Date: 01/27/20 Loc: ERRoom/Bed: Attending Dr: Ordering Provider/Ordering MD: Dustin Doyle DO Date of Service: 01/27/20 Procedure(s): XR chest 1V portable [id number] Accession Number(s): [id number] Report Number: [id number] WS: [id number] XR chest 1V portable [id number] REASON FOR EXAM: dyspnea/cough FINDINGS: Bilateral alveolar infiltrates are seen in the lower lungs. The heart is enlarged. The remaining lung aaron appear to be well aerated. The hilum and apices normal. XR/XR chest 1V portable [id number] IMPRESSION: Bilateral pneumonias lower lungs Cardiomegaly. Dictated By:Westley Be DO Signed By:Westley Be DOSigned Date/Time:01/27/20 1102 Discharge Plan Discharge Patient Disposition: Admitted As Inpatient Admit Provider: Edwige Franco Clinical Impression: Pneumonia, CHF (congestive heart failure), ASHD (arteriosclerotic heart disease) Condition: Stable Interventions: ED Discharge Assessment Last Done: 01/27/20 16:00 Discharge Date/Time: 01/27/20 16:01 Coding Level of Care Code ED Hearing Dog Trainer for Chg Fwd Exam Problem Focused The documentation recorded by the Heath frias Bridget Annette, accurately reflects the service I personally performed and the decisions made by Vivek fernández Curtis L, DO Jan 27, 2020 09:36
--- NOTE | 2020-01-27 10:47 | XR_ITS ---
WS: [id number] XR chest 1V portable [id number] REASON FOR EXAM: dyspnea/cough FINDINGS: Bilateral alveolar infiltrates are seen in the lower lungs. The heart is enlarged. The remaining lung aaron appear to be well aerated. The hilum and apices normal. XR/XR chest 1V portable [id number] IMPRESSION: Bilateral pneumonias lower lungs Cardiomegaly.
--- NOTE | 2020-01-27 10:47 | ECG_ITS ---
Measurements Intervals [place] Rate: 64 P: 42 KS: 110 QRS: -86 QRSD: 122 T: -10 QT: 406 QTc: 422 SINUS RHYTHM WITH SHORT [place] INTERVAL LEFT ANTERIOR FASCICULAR BLOCK [QRS AXIS <= -45, QR IN I, RS IN II] ANTEROLATERAL MYOCARDIAL INFARCTION [40+ ms Q WAVE IN I/aVL/V3-V6], OF IN INDETERMINATE AGE Compared to ECG 01/17/2020 20:01:36 Short KS interval now present Left anterior fascicular block now present Left-axis deviation no longer present Incomplete right bundle-branch block no longer present Myocardial infarct finding still present Electronically Signed On 01-27-2020 16:57:22 PLANT MECHANIC by Miguel Angel Donaldson M.D. [email or web address]
[2020-01-27 10:59] LABS: Eosinophils % 0.1 %; Hematocrit 38.8 % (42.0-52.0); Hemoglobin 12.9 g/dL (11.7-16.6); Lymphocytes # 1.4 10^3/uL (0.8-4.8); Lymphocytes % 16.3 %; Mean Corpuscular HGB Conc 33.2 g/dL (30.0-36.0); Mean Corpuscular Hemoglobin 30.7 pg (28.0-34.0); Mean Corpuscular Volume 92.4 fL (80-94); Mean Platelet Volume 11.7 fL (7.4-10.4); Monocytes # 0.8 10^3/uL (0.2-0.9); Monocytes % 9.4 %; Neutrophils # 6.1 10^3/uL (1.8-7.7); Neutrophils % 73.6 %; Nucleated Red Blood Cells % 0 %; Platelet Count 208 10^3/cmm (130-400); Red Cell Distribution Width 12.8 % (12.1-15.1); White Blood Count 8.3 10^3/uL (4.0-10.0)
[2020-01-27 11:18] LABS: Troponin(5th) Baseline 43 ng/mL (0-15)
[2020-01-27] MEDS: piperacillin-tazobactam 3.375 GM in sodium chloride 0.9% (plus) 50 ML IV (11:24)
[2020-01-27 11:26] LABS: Alanine Aminotransferase 17 U/L (0-41); Albumin Level 3.4 g/dL (3.5-5.2); Alkaline Phosphatase 89 IU/L (40-130); Anion Gap 13.3 (5-19); Aspartate Amino Transferase 15 U/L (0-40); Blood Urea Nitrogen 14 mg/dL (8-23); Calcium 8.4 mg/dL (8.5-10.5); Carbon Dioxide 25 mmol/L (22-29); Chloride 101 mmol/L (98-107); Globulin 2.2 g/dL (1.3-4.6); Glucose 91 mg/dL (65-115); NT Pro B Type Natriuretic Pept 3547 pg/mL (0-450); Potassium 4.3 mmol/L (3.5-5.1); Sodium 135 mmol/L (136-145); Total Bilirubin 0.5 mg/dL (0.15-1.2); Total Protein 5.6 g/dL (6.6-8.7)
[2020-01-27] MEDS: levofloxacin-dextrose 5 % 750 MG/150 ML PREMIX 150 MG IV (12:33)
[2020-01-27 12:35] LABS: Troponin 5 2HR 42.51 ng/mL (0-15)
[2020-01-27 12:36] LABS: Troponin 5 2HR Delta -0.49 ABS# (0-10)
--- NOTE | 2020-01-27 12:46 | CT_ITS ---
WS: [id number] CT CHEST WITHOUT INTRAVENOUS CONTRAST HISTORY: chest pain TECHNIQUE: Contiguous 5 mm axial imaging performed on the thorax. Coronal and sagittal reformats are submitted. All CT scans at [facility] use at least one of these dose optimization techniq ues: automated exposure control; mA and/or kV adjustment per patient size (includes targeted exams wh ere dose is matched to clinical indication); or iterative reconstruction. CONTRAST: None DLP: 978.09 mGy.cm COMPARISON: None available. Lungs and central airway: Lung volumes are slightly decreased. There is mild haziness and scattered g roundglass attenuation throughout both lungs. Small bilateral pleural effusions. LEFT pleural effusio n is slightly greater than the RIGHT. There is mild compressive atelectasis at the LEFT lung base. Pleura: Very small bilateral pleural effusions, LEFT greater than RIGHT. Heart and pericardium: Moderately enlarged heart. LAD coronary artery stent versus calcification. Sma ll pericardial effusion. Diameter of the fusion posteriorly is 11 mm. Mediastinum and ayad: Well-distended and the perivascular recesses. Vessels: Mild atherosclerosis aorta. No aneurysm. Normal size pulmonary artery. Chest wall and lower neck: No soft tissue masses. Upper abdomen: Small hiatal hernia. Cholelithiasis with numerous stones in the gallbladder lumen. No acute inflammatory change. Osseous structures: No destructive process. CT/CT chest wo con [id number] IMPRESSION: 1. Small bilateral pleural effusions, LEFT greater than RIGHT. 2. Mild pulmonary edema. 3. Moderate cardiomegaly with a small pericardial effusion. 4. Moderate cholelithiasis. Numerous stones and otherwise normal gallbladder.
--- NOTE | 2020-01-27 12:47 | ECG_ITS ---
Measurements Intervals [place] Rate: 61 P: 46 AR: 161 QRS: -68 QRSD: 102 T: 21 QT: 422 QTc: 427 SINUS RHYTHM LEFT AXIS DEVIATION [QRS AXIS < -30] Incomplete right bundle branch block LOW QRS VOLTAGE IN PRECORDIAL LEADS [QRS DEFLECTION < 1.0 mV IN CHEST LEADS] ANTEROSEPTAL MYOCARDIAL INFARCTION , OF INDETERMINATE AGE [40+ ms Q WAVE IN V1-V4] Compared to ECG 01/17/2020 20:01:36 Low QRS voltage now present Myocardial infarct finding still present Electronically Signed On 01-27-2020 17:04:24 COMBER FIXER by Miguel Angel Donaldson M.D. [id number]
--- NOTE | 2020-01-27 14:52 | PM.HP ---
Providers/Chief Complaint Admitting Physician: Edwige Franco MD Primary Care Provider: Johnnie Avendano Chief Complaint: Chest pains History of Present Illness Luis Matos is a 79-year-old male with past medical history of combined systolic and diastolic congestive heart failure, CAD (status post stent ostial LAD, December 2018), COPD, atrial fibrillation, carotid artery disease, ischemic cardiomyopathy, hyperlipidemia, chronic kidney disease, hypertension, obstructive sleep apnea, cardiomyopathy, Echocardiogram from February 2019 showed LVEF 35 to 40%, grade 2 diastolic dysfunction, mild pulmonary hypertension with mild mitral regurgitation and mild to moderate tricuspid regurgitation. He was recently admitted on 01/10 after p/w syncope, was found to be in atrial fibrillation with RVR and CHF exacerbation. Hospital course was complicated by V fib arrest. He received CPR, ROSC was restored at 3 minutes. He was not intubated as he was awake and alert. His rhythm following ROSC was atrial fibrillation with a ventricular rate of 90. He was continued on an amiodarone drip and underwent coronary angiogram on 01/12/2020 which revealed a 99% stenosis of the ostial LAD with some restenosis of the proximal stent. The ostial LAD was treated with noncompliant balloon followed by drug-eluting stent. The following day continued to have nonsustained V. tach, 4- 5 beats in duration. His amiodarone was adjusted to 200 mg daily, enalapril 20 mg twice a day, metoprolol 25 mg twice a day, Bumex was transitioned to oral Lasix 40 mg daily. He was discharged from the hospital on 01/15/2020. Since discharge and CPR, he has continued to have intermittent chest pain, which he describes as mostly being located in the right lower chest, felt as a soreness . He presented to ER on 01/17/2020 with complaints of chest pain that radiated to his neck resolved by nitroglycerin sublingual. The ER physician wanted to admit patient to evaluate his pain but the patient left AMA. The patient believed his symptoms were due to pneumonia and wanted an antibiotic but the chest x-ray did not reveal any infiltrate or consolidation. He was given a prescription for Cefdinir from the emergency room. He returns today again with chest pain located primarily in the right lower chest. Also c/o cough without expectoration and feeling short of breath particularly over the last week. Pain is worse on taking a deep breath. He has additionally noticed increasing B/L LE edema and mild abdominal distension. CT chest was performed whoch shows B/L pleural effusions, no gross rib fractures and a pericardial effusion. No gross clinical signs of tamponade. On a recent follow up as an outpatient he was supposed to have been started on Bumex in addition to 40mg po lasix, however he has not started this yet. Review of Systems General: Reports: 10 or more systems reviewed and unremarkable except in HPI and below Const: Denies: fever, chills or body aches Eyes: Denies: change in vision, blurry vision or photophobia ENMT: Reports: hoarseness; Denies: throat pain, enlarged tonsils, painful swallowing or nasal congestion Card: Denies: chest pain, palpitations, irregular heart rhythm, edema, swelling of feet/ankles, lightheadedness, pre-syncope, shortness of breath on exertion or shortness of breath when lying down Resp: Reports: shortness of breath, non-productive cough and pain on inspiration; Denies: productive cough, wheezing, stridor, change in phlegm color, coughing up blood or chest congestion GI: Denies: abdominal pain, nausea, vomiting, vomiting blood, coffee grounds in vomit, difficulty swallowing, heartburn/indigestion, diarrhea, constipation, cramping, change in stool character, blood in stool or black tarry stool : Denies: flank pain, painful urination, urinary frequency, urinary urgency, urinary hesitancy or blood in urine Musc: Denies: neck pain, back pain, extremity pain, joint swelling, joint warmth or deformity Neuro: Denies: headache, numbness in extremities, weakness in extremities, changes in sensation, difficulty walking, frequent falls, dizziness, vertigo, behavioral changes, slurred speech or seizure-like activity Psych: Denies: anxiety, depression, suicidal ideation or homicidal ideation Endo: Denies: excessive urination, excessive thirst, tired all the time, cold intolerance or hot flashes Alexis/Lymph: Denies: easy bruising or easy bleeding Medications/Allergies Home Medications Medication Instructions Recorded Confirmed Last Taken Type albuterol sulfate 1 inh INHALATION QID PRN 01/27/20 01/27/20 Unknown History benzonatate 100 mg PO TID PRN 01/27/20 01/27/20 01/27/20 History cefdinir 300 mg PO BID 01/27/20 01/27/20 01/27/20 History fluticasone propionate 2 spray INTRANASAL DAILY 01/27/20 01/27/20 01/26/20 History guaifenesin [Mucinex] 600 mg PO Q12H PRN 01/27/20 01/27/20 01/27/20 History Allergies Allergy/AdvReac Type Severity Reaction Status Date / Time No Known Allergies Allergy Verified 01/27/20 09:55 PFSH Acute PFSH: Medical History Acute non-ST segment elevation myocardial infarction ASHD (arteriosclerotic heart disease) BPH (benign prostatic hyperplasia) Carotid stenosis, bilateral Chewing tobacco use CHF (congestive heart failure) Essential hypertension GERD (gastroesophageal reflux disease) Hyperlipidemia IBS (irritable bowel syndrome) Ischemic cardiomyopathy Nonsustained ventricular tachycardia Paraphimosis SOB (shortness of breath) Spinal stenosis Statin intolerance Surgical History S/P angioplasty with stent S/P cervical spinal fusion Family History Other Hypertension Social History Smoking and tobacco status: former smoker Alcohol intake: current Alcohol intake frequency: 0-2 Drinks per Day Alcohol type: beer Household members: spouse Marital status: service: No Current occupational status: retired Current gender identity: Male Vitals/I&O/Wt Last Vital Signs Temp 97.8 F 01/27/20 09:51 Pulse 70 01/27/20 13:00 Resp 16 01/27/20 14:00 BP 118/76 01/27/20 13:00 Pulse Ox 97 01/27/20 13:00 01/26/20 01/27/20 01/27/20 22:59 06:59 14:59 Intake Total 50 / 50 Balance 50 / 50 Weight last 48 hrs Weight 103.873 kg Physical Exam Narrative: EXAM NARRATIVE: GEN: Awake, alert and oriented, no acute distress CVS: S1S2 N Chest: mild discomfort to palpation over R chest RS: Reduced air entry at B/L infra axillary and infrascapular areas Abd: Soft, nt/nd , bs+ OPTICAL GOODS WORKER: no focal neuro deficits Data : 01/27/20 10:12 01/27/20 10:12 Micro: Microbiology 01/27/20 11:24 Blood Culture - Preliminary Blood SPECIMEN COLLECTED 01/27/20 11:24 Blood Culture - Preliminary Blood SPECIMEN COLLECTED A&P Assessment and plan (1) CAD (coronary artery disease): Status: Acute Code(s): I25.10 - Atherosclerotic heart disease of [place] coronary artery without angina pectoris (2) Systolic heart failure: Status: Acute Code(s): I50.20 - Unspecified systolic (congestive) heart failure (3) Ischemic cardiomyopathy: Status: Acute Code(s): I25.5 - Ischemic cardiomyopathy (4) Chest pain, pleuritic: Status: Acute Code(s): R07.81 - Pleurodynia Additional A&P Information # Chest pain: troponins with negative deltas No acute St-T changes on EKG Based on history, appears more likely to be pleuritic vs musculoskeletal chest pain CT chest with B/L pleural effusions no gross consolidations, no WBC, no fever- no current signs of pneumonia, hold off on abx , check procal Overall grossly fluid overloaded, Pleural and pericardial effusions likely transudative lasix 40mg iv BID strict I/O , daily weight monitor renal function closely #CAD with recent stenting, ischemic cardiomyopathy: Continue ASA, Plavix , B blockers , enalapril , statins # h/o A fib with V fib arrest : continue amiodarone Full code Dvt ppx: lovenox Attestations Medical Necessity Statement*: Chf, chest pain Coding Level of Care Code Acute Criminal Investigator Customs for [facility] Fwd Diagnoses CAD (coronary artery disease) I25.10 Systolic heart failure I50.20 Ischemic cardiomyopathy I25.5 Chest pain, pleuritic R07.81
[2020-01-27] MEDS: vancomycin 1,000 MG in sodium chloride 0.9% 250 ML 250 MG IV (15:51)
[2020-01-27] MEDS: FUROsemide 10 mg/mL SDV 4mL 40 MG IVP (17:17)
[2020-01-27] MEDS: enoxaparin 40 mg/0.4 mL Syringe SUBCUT (17:17)
[2020-01-27 17:35] LABS: Troponin 5 6HR 37.76 ng/mL (0-15)
[2020-01-27 17:36] LABS: Troponin 5 6HR Delta -5.24 ng/L (0-12)
[2020-01-27] MEDS: nitroglycerin 0.4 mg sublingual Tablet SUBLINGUAL (17:38)
[2020-01-27] MEDS: metoprolol tartrate 50 mg Tablet PO (17:38)
[2020-01-27] MEDS: tamsulosin 0.4 mg Capsule PO (17:38)
--- NOTE | 2020-01-27 17:43 | PC.NURSE ---
notified Dr law of patients complaints of chest pain and obtaining EKG with no noted abnormalities chest pain resolved shortly after EKG was performed then about 20 min later patient had complaints of chest pain and nitro time one given patient also refused enalapril due to heart rated in the 60's no new instructions given at this time will continue to monitor
[2020-01-27] MEDS: acetaminophen 325 mg Tablet 650 MG PO (18:35)
[2020-01-27 18:47] LABS: Procalcitonin 0.05 ng/mL (0-0.5)
[2020-01-27] MEDS: ipratropium-albuterol 3 mL Neb INHALATION (20:34)
[2020-01-27] MEDS: atorvastatin 40 mg Tablet 20 MG PO (21:37)
[2020-01-27] MEDS: ALPRAZolam 0.5 mg Tablet PO (21:37)
[2020-01-27] MEDS: cyclobenzaprine 10 mg Tablet PO (21:37)
[2020-01-27] MEDS: BuSPIRONE 5 mg Tablet PO (21:37)
[2020-01-28] VITALS (14 sets, daily range): BP systolic 101–134; BP diastolic 58–75; PULSE 68–105; RESP 10–68; TEMP 36.2–36.8; O2SAT 92–96
--- NOTE | 2020-01-28 00:20 | PC.NURSE ---
patient had complained of tightness in his chest and chest pain (for which he was initially given nitro and said felt a little better). he also wanted a brathing treatment and his lung sounds were crackly and insoiration wheezing. i explained what the breathing treatment will do and how it will make coughing easier for him. he had been afraid to cough because the last time he did it it took forever and barely got anything up. after his treatment i asked him how he felt and he said much better, no heaviness in his chest and coughing was so much easier and he got stuff up. hes not so worried now about breathing treatments and coughing.
[2020-01-28 03:58] LABS: Basophils % 0.2 %; Eosinophils # 0.1 10^3/uL (0.0-0.8); Hematocrit 40.7 % (42.0-52.0); Hemoglobin 13.4 g/dL (11.7-16.6); Lymphocytes # 1.2 10^3/uL (0.8-4.8); Lymphocytes % 18.4 %; Mean Corpuscular HGB Conc 32.9 g/dL (30.0-36.0); Mean Corpuscular Hemoglobin 29.5 pg (28.0-34.0); Mean Corpuscular Volume 89.6 fL (80-94); Mean Platelet Volume 11.6 fL (7.4-10.4); Monocytes # 0.6 10^3/uL (0.2-0.9); Neutrophils # 4.4 10^3/uL (1.8-7.7); Neutrophils % 70.6 %; Nucleated Red Blood Cells % 0 %; Platelet Count 175 10^3/cmm (130-400); Red Blood Count 4.54 10^6/uL (4.1-5.3); Red Cell Distribution Width 12.8 % (12.1-15.1); White Blood Count 6.2 10^3/uL (4.0-10.0)
[2020-01-28] MEDS: FUROsemide 10 mg/mL SDV 4mL 40 MG IVP ×2 (04:10→15:13)
[2020-01-28 04:22] LABS: Alanine Aminotransferase 15 U/L (0-41); Albumin Level 3.5 g/dL (3.5-5.2); Alkaline Phosphatase 93 IU/L (40-130); Aspartate Amino Transferase 12 U/L (0-40); Blood Urea Nitrogen 15 mg/dL (8-23); Calcium 8.9 mg/dL (8.5-10.5); Carbon Dioxide 24 mmol/L (22-29); Chloride 102 mmol/L (98-107); Globulin 2.2 g/dL (1.3-4.6); Glucose 81 mg/dL (65-115); Sodium 137 mmol/L (136-145); Total Bilirubin 0.9 mg/dL (0.15-1.2); Total Protein 5.7 g/dL (6.6-8.7)
[2020-01-28] MEDS: pantoprazole DR 40 mg Tablet PO (05:37)
[2020-01-28] MEDS: isosorbide mononitrate ER 30 mg Tablet PO (05:37)
[2020-01-28] MEDS: clopidogrel 75 mg Tablet PO (09:10)
[2020-01-28] MEDS: BuSPIRONE 5 mg Tablet PO ×3 (09:10→20:26)
[2020-01-28] MEDS: tamsulosin 0.4 mg Capsule PO ×2 (09:10→18:13)
[2020-01-28] MEDS: amiodarone 200 mg Tablet PO (09:11)
[2020-01-28] MEDS: finasteride 5 mg Tablet PO (09:11)
[2020-01-28] MEDS: amlodipine 10 mg Tablet PO (09:11)
[2020-01-28] MEDS: aspirin 81 mg EC Tablet PO (09:11)
[2020-01-28] MEDS: fluticasone nasal spray 16gm Btl 2 SPRAY INTRANASAL (09:11)
[2020-01-28] MEDS: metoprolol tartrate 50 mg Tablet PO ×2 (09:11→18:13)
--- NOTE | 2020-01-28 09:16 | P.PN_ITS ---
Subjective Subjective: Interval history: net negative 5.3 L since yesetrday. wt 100<--103, afebrile, BP stable, 02 sat 94% RA. Discussed CT findings with radiologist today, patient has multiple rib fractures including right anteriot 4th and 5th ribs and left anterior 4th,5th,6th and 7th ribs. Addendum to be added. Location of injuries c/w CPR last month. Pain is improving today. LE edema reducing. 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 focal neuro deficits Urinary Catheter Management^: Webber: Cath Placed During This Visit: yes Reason for Continuing Indwelling Catheter: Acute Urinary Retention or Obstruction Urinary Catheter Date of Insertion: 01/27/20 Urinary Catheter Time of Insertion: 17:21 Data : 01/28/20 03:15 01/28/20 03:15 Micro: Microbiology 01/27/20 11:24 Blood Culture - Preliminary Blood SPECIMEN COLLECTED 01/27/20 11:24 Blood Culture - Preliminary Blood SPECIMEN COLLECTED A&P Assessment and plan (1) Ribs, multiple fractures: Status: Acute Code(s): S22.49XA - Multiple fractures of ribs, unspecified side, initial encounter for closed fracture (2) Chest pain, pleuritic: Status: Acute Code(s): R07.81 - Pleurodynia (3) Ischemic cardiomyopathy: Status: Acute Code(s): I25.5 - Ischemic cardiomyopathy (4) Systolic heart failure: Status: Acute Code(s): I50.20 - Unspecified systolic (congestive) heart failure (5) CAD (coronary artery disease): Status: Acute Code(s): I25.10 - Atherosclerotic heart disease of [place] coronary artery without angina pectoris Additional A&P Information Chest pain: troponins with negative deltas No acute St-T changes on EKG Based on history and now with discovery of multiple B/L rib fractures, symptoms more c/w pleuritic vs musculoskeletal chest pain Offered to start opiates for pain control, however patient and hesitant for the same given adverse effects and addiction potential, would like to try tramadol and tylenol. NSAIDs not an ideal option given CKD. Lidocaine patch locally Incentive spirometry # CHF exacerbation CT chest with B/L pleural effusions no gross consolidations, no WBC, no fever- no current signs of pneumonia, hold off on abx Overall grossly fluid overloaded, Pleural and pericardial effusions likely transudative lasix 40mg iv BID yesetrday, will reduce to 40 iv qd as edema improving, net negative 5.3 L strict I/O , daily weight monitor renal function closely Echocardiogram to evalute pericardial effusion seen on CT, assess for worsened diastolic function #CAD with recent stenting, ischemic cardiomyopathy: Continue ASA, Plavix , B blockers , enalapril , statins # h/o A fib with V fib arrest : continue amiodarone Full code Dvt ppx: lovenox Attestations Medical Necessity Statement*: CHF exacerbation, multiple rib fractures with inadequate pain control Coding Level of Care Code 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
--- NOTE | 2020-01-28 09:29 | USCV_ITS ---
Luis Matos Age: 79 Gender: M : 1940 Exam Date: 01/28/2020 13:44 Ordering Phys: Edwige Franco MD Technologist: Murray Cool [place]am Location[place] [facility] [place]: PERICARDIAL EFFUSION BP: 114 / 74 HR: 79 Rhythm: Sinus Technical Quality: Very poor MEASUREMENTS (Male / Female) Normal Values 2D ECHO LV Diastolic Diameter PLAX 3.1 cm 4.2 - 5.9 / 3.9 - 5.3 cm LV Systolic Diameter PLAX 2.3 cm IVS Diastolic Thickness 0.9 cm 0.6 - 1.0 / 0.6 - 0.9 cm IVS Systolic Thickness 1.1 cm LVPW Diastolic Thickness 0.9 cm 0.6 - 1.0 / 0.6 - 0.9 cm LVPW Systolic Thickness 1.3 cm LVOT Diameter 2.0 cm LV Ejection Fraction 2D Teich 54.5 % LV Ejection Fraction MOD 2C 57.8 % LV Ejection Fraction 2C AL 57.1 % LA Diameter 3.8 cm Aorta at Sinotubular Diameter 2.7 cm M-MODE LV Diastolic Diameter MM 3.8 cm 4.2 - 5.9 / 3.9 - 5.3 cm LV Systolic Diameter MM 2.5 cm LV Ejection Fraction MM Teich 65.0 % IVS Diastolic Thickness MM 0.7 cm 0.6 - 1.0 / 0.6 - 0.9 cm IVS Systolic Thickness MM 1.2 cm LVPW Diastolic Thickness MM 0.9 cm 0.6 - 1.0 / 0.6 - 0.9 cm LVPW Systolic Thickness MM 1.1 cm RV Diastolic Diameter MM 1.5 cm Aortic Annulus Diameter 2.9 cm LA Ao Ratio MM 1.3 MV E Point Septal Separation 0.8 cm DOPPLER AV Peak Velocity 118.0 cm/s LVOT Peak Velocity 95.0 cm/s AV Area Cont Eq vti 3.2 cm squared AV Area Cont Eq pk 2.6 cm squared MV Area PHT 4.8 cm squared Mitral E to A Ratio 0.8 MV E' Velocity 5.0 cm/s Mitral E to MV E' Ratio 10.1 Mitral E to LV E' Lateral Ratio 9.9 Mitral E to LV E' Septal Ratio 10.5 TR Peak Velocity 207.0 cm/s TR Peak Gradient 17.1 mmHg TV Peak E Velocity 46.0 cm/s Right Atrial Pressure 3.0 mmHg Pulmonary Artery Systolic Pressu 20.1 mmHg FINDINGS Left Ventricle Normal left ventricular cavity size. Mildly diffuse left ventricular systolic function. Left ventricular ejection fraction is estimated at 50 %. There is mid to distal anterior and apical hypokinesis. Grade I/IV diastolic dysfunction (abnormal relaxation filling pattern), normal to mildly elevated filling pressures. Right Ventricle The right ventricle is normal in size and function. Right Atrium The right atrium is normal in size. Left Atrium The left atrium is normal in size. Mitral Valve Structurally normal mitral valve without significant stenosis or prolapse. There is no mitral regurgitation. Aortic Valve Structurally normal aortic valve without significant sclerosis or stenosis. There is no aortic regurgitation. Tricuspid Valve Structurally normal tricuspid valve without significant stenosis or regurgitation. Pulmonary artery systolic pressure is normal. Pulmonic Valve Structurally normal pulmonic valve without significant stenosis. There is no pulmonic regurgitation. Pericardium Normal pericardium without effusion. Aorta Normal ascending aorta dimension. CONCLUSIONS Normal left ventricular cavity size. Mildly diffuse left ventricular systolic function. Left ventricular ejection fraction is estimated at 50 %. There is mid to distal anterior and apical hypokinesis. Grade I/IV diastolic dysfunction (abnormal relaxation filling pattern), normal to mildly elevated filling pressures. 2-There is no pericardial effusion. 3-No significant valve abnormalities. 4-When compared to the prior echocardiogram dated 03/10/2019 left ventricular ejection fraction has improved from moderately depressed 40% to mildly depressed 45 to 50 % now. Please note that this is suboptimal image quality study therefore ejection fraction may not be that accurate. Bela Salinas MD (Electronically Signed) Final Date: 29 January 2020 18:07 S
[2020-01-28] MEDS: ipratropium-albuterol 3 mL Neb INHALATION ×4 (09:32→20:38)
[2020-01-28] MEDS: lidocaine 5% Patch 1 PATCH TOPICAL (10:56)
[2020-01-28] MEDS: TRAMadol 50 mg Tablet PO (10:59)
[2020-01-28] MEDS: enoxaparin 40 mg/0.4 mL Syringe SUBCUT (15:13)
[2020-01-28 18:30] LABS: Alanine Aminotransferase 18 U/L (0-41); Albumin Level 3.6 g/dL (3.5-5.2); Alkaline Phosphatase 92 IU/L (40-130); Anion Gap 18.6 (5-19); Aspartate Amino Transferase 17 U/L (0-40); Blood Urea Nitrogen 15 mg/dL (8-23); Calcium 8.9 mg/dL (8.5-10.5); Carbon Dioxide 23 mmol/L (22-29); Chloride 99 mmol/L (98-107); Globulin 2.2 g/dL (1.3-4.6); Glucose 93 mg/dL (65-115); Magnesium 2.5 mg/dL (1.7-2.3); Potassium 4.6 mmol/L (3.5-5.1); Sodium 136 mmol/L (136-145); Total Bilirubin 0.8 mg/dL (0.15-1.2); Total Protein 5.8 g/dL (6.6-8.7)
[2020-01-28] MEDS: atorvastatin 40 mg Tablet 20 MG PO (20:26)
[2020-01-28] MEDS: cyclobenzaprine 10 mg Tablet PO (20:26)
[2020-01-29] VITALS (13 sets, daily range): BP systolic 105–128; BP diastolic 64–72; PULSE 65–98; RESP 14–21; TEMP 36.6–36.8; O2SAT 92–97
[2020-01-29] MEDS: ipratropium-albuterol 3 mL Neb INHALATION ×4 (00:33→11:37)
[2020-01-29] MEDS: isosorbide mononitrate ER 30 mg Tablet PO (05:08)
[2020-01-29] MEDS: pantoprazole DR 40 mg Tablet PO (05:08)
[2020-01-29 05:49] LABS: Basophils % 0.2 %; Eosinophils # 0.1 10^3/uL (0.0-0.8); Eosinophils % 1.8 %; Hematocrit 41.8 % (42.0-52.0); Hemoglobin 13.7 g/dL (11.7-16.6); Lymphocytes # 0.9 10^3/uL (0.8-4.8); Lymphocytes % 16.9 %; Mean Corpuscular HGB Conc 32.8 g/dL (30.0-36.0); Mean Corpuscular Hemoglobin 30.4 pg (28.0-34.0); Mean Corpuscular Volume 92.9 fL (80-94); Mean Platelet Volume 11.3 fL (7.4-10.4); Monocytes # 0.6 10^3/uL (0.2-0.9); Monocytes % 10.3 %; Neutrophils # 3.9 10^3/uL (1.8-7.7); Neutrophils % 69.9 %; Nucleated Red Blood Cells % 0 %; Platelet Count 195 10^3/cmm (130-400); White Blood Count 5.6 10^3/uL (4.0-10.0)
[2020-01-29 06:02] LABS: Alanine Aminotransferase 11 U/L (0-41); Albumin Level 3.2 g/dL (3.5-5.2); Alkaline Phosphatase 88 IU/L (40-130); Anion Gap 12.9 (5-19); Aspartate Amino Transferase 10 U/L (0-40); Blood Urea Nitrogen 18 mg/dL (8-23); Calcium 8.9 mg/dL (8.5-10.5); Carbon Dioxide 28 mmol/L (22-29); Chloride 100 mmol/L (98-107); Globulin 2.9 g/dL (1.3-4.6); Glucose 94 mg/dL (65-115); Magnesium 2.6 mg/dL (1.7-2.3); Potassium 3.9 mmol/L (3.5-5.1); Sodium 137 mmol/L (136-145); Total Bilirubin 0.8 mg/dL (0.15-1.2); Total Protein 6.1 g/dL (6.6-8.7)
[2020-01-29] MEDS: fluticasone nasal spray 16gm Btl 2 SPRAY INTRANASAL (10:10)
[2020-01-29] MEDS: tamsulosin 0.4 mg Capsule PO (10:11)
[2020-01-29] MEDS: BuSPIRONE 5 mg Tablet PO (10:11)
[2020-01-29] MEDS: TRAMadol 50 mg Tablet PO (10:12)
[2020-01-29] MEDS: clopidogrel 75 mg Tablet PO (10:12)
[2020-01-29] MEDS: aspirin 81 mg EC Tablet PO (10:12)
[2020-01-29] MEDS: finasteride 5 mg Tablet PO (10:14)
[2020-01-29] MEDS: amiodarone 200 mg Tablet PO ×2 (10:14→11:30)
[2020-01-29] MEDS: benzonatate 100 mg Capsule PO (10:15)
[2020-01-29] MEDS: metoprolol tartrate 50 mg Tablet PO (10:15)
[2020-01-29] MEDS: amlodipine 10 mg Tablet PO (10:16)
[2020-01-29] MEDS: lidocaine 5% Patch 1 PATCH TOPICAL (10:16)
--- NOTE | 2020-01-29 10:48 | XR_ITS ---
WS: [id number] XR chest 1V portable [id number] REASON FOR EXAM: pleural effusion FINDINGS: Cardiomegaly is noted. There is small amount of left pleural effusion obliterating the cost ophrenic angle. The lung aaron are otherwise well aerated. No pneumonia, pleural effusion, pulmonary edema, or mass effect. The overall appearance of the chest is much improved since January 27, 2020. XR/XR chest 1V portable [id number] IMPRESSION: Small amount of left pleural effusion Cardiomegaly
--- NOTE | 2020-01-29 11:22 | PM.DCS ---
Discharge Providers Date of Admission: 01/27/20 12:51 Date of Discharge: January 29, 2020 Attending Provider at Admission: Edwige Franco MD Attending Provider at Discharge: Edwige Franco MD Primary Care Provider: Johnnie Avendano Diagnoses at Discharge Discharge Diagnosis (1) Ribs, multiple fractures: Status: Acute (2) Chest pain, pleuritic: Status: Acute (3) Ischemic cardiomyopathy: Status: Acute (4) Systolic heart failure: Status: Acute (5) CAD (coronary artery disease): Status: Acute Reason for Visit Reason for Visit: Reason For Visit: Chest pains Hospital Course Discharge Summary: Luis Matos is a 79-year-old male with past medical history of combined systolic and diastolic congestive heart failure, CAD (status post stent ostial LAD, December 2018), COPD, atrial fibrillation, carotid artery disease, ischemic cardiomyopathy, hyperlipidemia, chronic kidney disease, hypertension, obstructive sleep apnea, cardiomyopathy, Echocardiogram from February 2019 showed LVEF 35 to 40%, grade 2 diastolic dysfunction, mild pulmonary hypertension with mild mitral regurgitation and mild to moderate tricuspid regurgitation. On recent admission in December 2019, he went into V. fib arrest and needed CPR at the time. Since this time he has been complaining of anterior chest wall pain which appears to be pleuritic vs musculoskeletal in nature and has been variously diagnosed as having pneumonia for which he was on an extended course of cefdinir which did not help the symptoms. He received a CTA of the chest on this admission which was negative for PE. It showed bilateral small pleural effusions. Additionally though not reported as an addendum just yet, per discussion with radiologist, patient was also noted to have multiple rib fractures bilaterally. He has anterior rib fractures of the fourth and fifth ribs on the right side and left anterior fourth fifth sixth and seventh ribs consistent with CPR location. He was noted to be in CHF exacerbation upon arrival with grossly worsened lower extremity edema. He received diuresis with 40mg iv lasix BID, then switched to 40iv lasix daily. This significantly improved his lower extremity edema. For chest pain he received tramadol and lidocaine patch with improvement. At this time he is working with incentive spirometry and pulling volumes of ~700cc. He states nebulization helps him additionally and will be discharged with a DME order for the same. B/L pleural effusions likely to be transudative. Pericardial effusion was noted on CT, echo ordered . Other notable events included finding of non sustained V tach on tele, his dose of amiodarone is being increased to 400mg daily. Lasix increased to 40mg po BID at discharge. He will follow up with PCP on Friday (today is Friday) to recheck renal function. Repeat CXR is with improving effusions. 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 Ext: B/L LE edema, significantly improving Urinary Catheter Management^: Webber: Cath Placed During This Visit: yes Reason for Continuing Indwelling Catheter: Accurate Measurement of Urinary Output in Critically Ill Patients Urinary Catheter Date of Insertion: 01/27/20 Urinary Catheter Time of Insertion: 17:21 Discharge Data Data Completed and Pending: Completed Studies During Hospitalization Category Date Time Status CT chest wo con 7 [id number] Stat Cat Scan 01/27/20 12:46 Completed XR chest 1V danny ble [id number] Routine Exams 01/29/20 10:48 Completed XR chest 1V danny ble [id number] Stat Exams 01/27/20 10:47 Completed Pending at discharge Category Date Time Status Blood Culture Sta t Lab 01/27/20 11:24 Results CV echo complete* [id number] Routine Ultrasound 01/28/20 09:29 Taken Labs from last 24 hours 01/29/20 01/29/20 01/28/20 04:46 04:46 16:53 WBC 5.6 RBC 4.50 Hgb 13.7 Hct 41.8 L MCV 92.9 MCH 30.4 MCHC 32.8 RDW 13.0 Plt Count 195 MPV 11.3 H Neut % (Auto) 69.9 Lymph % (Auto) 16.9 [place] % (Auto) 10.3 Eos % (Auto) 1.8 Baso % (Auto) 0.2 Neut # (Auto) 3.9 Lymph # (Auto) 0.9 [place] # (Auto) 0.6 Eos # (Auto) 0.1 Baso # (Auto) 0.0 Nucleated RBC % (a uto) 0 Nucleated RBCs # 0.0 Sodium 137 136 Potassium 3.9 4.6 Chloride 100 99 Carbon Dioxide 28 23 Anion Gap 12.9 18.6 BUN 18 15 Creatinine 1.5 H 1.4 H Glucose 94 93 Calcium 8.9 8.9 Magnesium 2.6 H 2.5 H Total Bilirubin 0.8 0.8 AST 10 17 ALT 11 18 Alkaline Phosphata se 88 92 Total Protein 6.1 L 5.8 L Albumin 3.2 L 3.6 Globulin 2.9 2.2 Vitals: Last Vital Signs Temp 97.9 F 01/29/20 07:10 Pulse 98 01/29/20 08:47 Resp 18 01/29/20 08:39 BP 113/72 01/29/20 07:10 Pulse Ox 94 01/29/20 08:39 Discharge Plan Discharge Patient Disposition: Home Health Service Condition: Stable Prescriptions: New ipratropium-albuterol 0.5 mg-3 mg(2.5 mg base)/3 mL Solution For Nebulization 3 ml inhalation Q4H.RESPIRATORY 30 Days Qty: 120 RF: 0 tramadol 50 mg Tablet 50 mg PO BID PRN (Reason: Moderate Pain) 30 Days Qty: 60 RF: 0 lidocaine 1.8 % adhesive patch,medicated 2 patch TOPICAL Q24H Qty: 30 RF: 0 Continued metoprolol tartrate 50 mg tablet 50 mg PO BID 30 Days Qty: 60 RF: 2 amlodipine 5 mg tablet 10 mg PO DAILY 10 Days Qty: 60 RF: 2 clopidogrel 75 mg tablet 75 mg PO DAILY 30 Days Qty: 30 RF: 2 enalapril maleate 20 mg tablet 20 mg PO BID 30 Days Qty: 60 RF: 2 isosorbide mononitrate 30 mg tablet extended release 24 hr 30 mg PO QAM 30 Days Qty: 30 RF: 2 buspirone 5 mg tablet 5 mg PO TID RF: 0 cyclobenzaprine 10 mg tablet 10 mg PO TID PRN (Reason: Spasms) RF: 0 tamsulosin 0.4 mg capsule 0.4 mg PO BID RF: 0 pantoprazole 40 mg tablet,delayed release (DR/EC) 40 mg PO QAM RF: 0 aspirin [Adult Low Dose Aspirin] 81 mg tablet,delayed release (DR/EC) 81 mg PO DAILY RF: 0 nitroglycerin [Nitrostat] 0.4 mg tablet, sublingual 0.4 mg SUBLINGUAL Q5M PRN (Reason: Chest Pain) RF: 0 finasteride 5 mg tablet 5 mg PO DAILY Qty: 90 RF: 3 simvastatin 40 mg tablet 40 mg PO DAILY 30 Days Qty: 30 RF: 0 benzonatate 100 mg Capsule 100 mg PO TID PRN (Reason: Cough) RF: 0 albuterol sulfate 90 mcg/actuation Hfa Aerosol Inhaler 1 inh INHALATION QID PRN (Reason: Shortness Of Breath) RF: 0 fluticasone propionate 50 mcg/actuation [place],Suspension 2 spray INTRANASAL DAILY RF: 0 Changed furosemide 40 mg tablet 40 mg PO BID 30 Days Qty: 30 RF: 2 amiodarone 200 mg tablet 400 mg PO DAILY 30 Days Qty: 30 RF: 2 Discontinued Probiotic 2 cap PO DAILY RF: 0 cefdinir 300 mg Capsule 300 mg PO BID RF: 0 Mucinex 600 mg Tablet Extended Release 12hr 600 mg PO Q12H PRN (Reason: mucous) RF: 0 Discharge Orders: Discharge Order (Routine); Ordered 01/29/20 Ordered By: Edwige Franco Other Ambulatory Orders: DME: Nebulizer with Neb Kit (Order) Location: None Selected Ordered By: Edwige Franco Referrals: Johnnie Avendano [Primary Care Provider] - 02/02/20 (needs follow up on renal function and potassium ) Miguel Angel Donaldson MD [Physician] - 7-10 days Discharge Diet: Cardiac and Diabetic Discharge Activity: Resume usual activity Discharge Attestations Time Spent in Discharge Care*: greater than 30 min Status at Discharge: Cognitive status at discharge: cognitively intact, Behavioral status at discharge: cooperative, Quality Metrics Clinical Quality Measures During this hospital stay, did patient experience: None Coding Level of Care Code 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
== END 2020-01-29 13:06 | disposition home health service (06) | DRG 291 ==
LOC: ER 10:26 → ICU 13:26 → CSU 15:06
PROVIDERS: Admitting Provider Student in an Organized Health Care Education/Training Program; Emergency Provider Family Medicine; Family Provider Family Medicine; PCP Family Medicine; Visit Provider Student in an Organized Health Care Education/Training Program
DX: I13.0 Hypertensive heart and chronic kidney disease with heart failure and stage 1 through stage 4 chronic kidney disease, or unspecified chronic kidney disease (principal); I50.23 Acute on chronic systolic (congestive) heart failure; I31.3 Pericardial effusion (noninflammatory); I47.2 Ventricular tachycardia; I25.10 Atherosclerotic heart disease of native coronary artery without angina pectoris; N40.0 Benign prostatic hyperplasia without lower urinary tract symptoms; K21.9 Gastro-esophageal reflux disease without esophagitis; E78.5 Hyperlipidemia, unspecified; I25.5 Ischemic cardiomyopathy; Z98.1 Arthrodesis status; J44.9 Chronic obstructive pulmonary disease, unspecified; G47.33 Obstructive sleep apnea (adult) (pediatric); N18.9 Chronic kidney disease, unspecified; I27.20 Pulmonary hypertension, unspecified; I08.1 Rheumatic disorders of both mitral and tricuspid valves; I25.2 Old myocardial infarction; S22.43XD Multiple fractures of ribs, bilateral, subsequent encounter for fracture with routine healing; Z79.02 Long term (current) use of antithrombotics/antiplatelets; Z79.82 Long term (current) use of aspirin; Z79.899 Other long term (current) drug therapy
CPT/HCPCS: 12345; 36415; 51702; 71045; 71250; 80053; 83735; 83880; 84145; 84484; 85025; 87040; 93005; 93306; 94640; 96372; 96375; 99283; J1650; J1940; J1956; J2543; J3370; J7050

== ENCOUNTER 2020-05-24 10:34 | Emergency (ER) | payer MEDICARE, SELFPAY ==
[2020-05-24 10:43] VITALS: BMI 27.1
--- NOTE | 2020-05-24 10:43 | XRR_ITS ---
PROCEDURE INFORMATION: Exam: XR Chest, 1 View Exam date and time: 05/24/2020 11:15 AM Age: 80 years old Clinical indication: Cough and other: tested positive for covid; Prior surgery; Surgery date: 6+ months; Surgery type: Angioplasty with stent; Patient HX: Cough/dyspnea/diarrhea; Additional info: Cough dypnea TECHNIQUE: Imaging protocol: XR of the chest Views: 1 view. COMPARISON: CR XR chest 1V portable [id number] 01/29/2020 10:56 AM FINDINGS: Lungs: Interstitial thickening, hyperinflation. No consolidation. Pleural space: Unremarkable. No pleural effusion. No pneumothorax. Heart/Mediastinum: Cardiomegaly. Bones/joints: No acute findings. Old rib fractures. XR/XR chest 1V portable [id number] IMPRESSION: No acute findings.
--- NOTE | 2020-05-24 10:43 | ECG_ITS ---
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 Measurements Intervals [place] Rate: 62 P: 36 NH: 164 QRS: 243 QRSD: 114 T: 20 QT: 439 QTc: 448 Interpretive Statements SINUS RHYTHM INDETERMINATE AXIS PATTERN CONSISTENT WITH PULMONARY DISEASE INCOMPLETE RIGHT BUNDLE BRANCH BLOCK [90+ ms QRS DURATION, TERMINAL R IN V1/V2, 40+ ms S IN I/aVL/V4/V5/V6] SEPTAL MYOCARDIAL INFARCTION , OF INDETERMINATE AGE [40+ ms Q WAVE IN V1/V2] Compared to ECG 01/27/2020 13:44:22 Indeterminate axis now present Left-axis deviation no longer present Myocardial infarct finding still present Electronically Signed On 05-24-2020 17:44:22 CDT by Miguel Angel Donaldson M.D. [email or web address]
[2020-05-24 10:46] VITALS: BP 117/73; PULSE 66; RESP 18; TEMP 36.8; O2SAT 98
--- NOTE | 2020-05-24 10:47 | ED_ITS ---
Documented by User: SAHIL Lewis 05/24/20 13:21 HPI - General Adult General: Chief complaint: Nausea/Vomiting/Diarrhea Stated complaint: DIARRHEA, EXPOSED TO COVID Time Seen by Provider: 05/24/20 10:37 Source: patient Mode of arrival: ambulatory Limitations: no limitations History of Present Illness: HPI narrative: Patient is a 80-year-old male who presents to ED today for evaluation after his tested positive for COVID-19. Patient tells me he is not having any symptoms apart from diarrhea that he has had intermittently over the past 2 to 3 months. Patient seems fixated upon this and often reverts back to talking about the diarrhea. He tells me he will seldomly have more than 2 stools a day . He denies black or bloody stools. A bdominal pain does accompany the diarrhea so this is also intermittent. No vomiting. Patient is not been running fevers. When asked specifically he does tell me he has had a cough for the past 2 to 3 days that he has been treating with Mucinex. He denies chest pain, difficulty breathing, shortness of breath. He has not had any rash or skin changes. Onset (ago): day(s) Associated symptoms: Deny chest pain, dyspnea, headache(s), malaise, nausea, rash, palpitations, syncope or vomiting Review of Systems General: Reports: 10 or more systems reviewed and unremarkable except in HPI and below Const: Denies: fever(s), chills, body aches, change in appetite, change in weight, fatigue or malaise Eyes: Denies: change in vision, blurry vision, photophobia, floaters or seeing flashes ENMT: Denies: throat pain or odynophagia Card: Denies: chest pain, palpitations, irregular heart rhythm, edema, lightheadedness, syncope, pre-syncope, dyspnea on exertion, orthopnea or leg pain with exertion Resp: Reports: productive cough and chest congestion; Denies: dyspnea, non-productive cough, change in phlegm color or hemoptysis GI: Reports: abdominal pain and diarrhea; Denies: nausea, vomiting, hematemesis, coffee ground emesis, heartburn, early satiety, fecal incontinence, pain on defecation, hematochezia, melena or white/light colored stool : Denies: flank pain, difficulty urinating, dysuria, urinary frequency or urinary urgency Musc: Denies: neck pain, back pain, extremity pain or joint pain Skin/Breast: Denies: rash or new lesions Neuro: Denies: headache(s), numbness in extremities, weakness in extremities or sensory changes PFSH ED PFSH: Medical History (Updated 05/24/20 @ 13:07 by SAHIL Lewis) Acute non-ST segment elevation myocardial infarction ASHD (arteriosclerotic heart disease) BPH (benign prostatic hyperplasia) CAD (coronary artery disease) Carotid stenosis, bilateral Chewing tobacco use CHF (congestive heart failure) Essential hypertension GERD (gastroesophageal reflux disease) Hyperlipidemia IBS (irritable bowel syndrome) Ischemic cardiomyopathy Ischemic cardiomyopathy Nonsustained ventricular tachycardia Paraphimosis SOB (shortness of breath) Spinal stenosis Statin intolerance Systolic heart failure Surgical History S/P angioplasty with stent S/P cervical spinal fusion Family History Other Hypertension Social History Smoking and tobacco status: former smoker Alcohol intake: current Alcohol intake frequency: 0-2 Drinks per Day Alcohol type: beer Household members: spouse Marital status: service: No Current occupational status: retired Current gender identity: Male Physical Exam Const: COMMON NORMALS: no acute distress, average body habitus, patient oriented x3, no limitations, healthy appearing, alert and well nourished ORIENTATION/CONSCIOUSNESS: Yes oriented to person, Yes oriented to place and Yes oriented to time HENMT: COMMON NORMALS: normocephalic and atraumatic HEAD & SCALP: normocephalic and atraumatic Resp: COMMON NORMALS: normal respiratory effort and clear to auscultation bilaterally AUSCULTATION: clear to auscultation bilaterally Cardio: COMMON NORMALS: regular rate and regular rhythm RATE: regular rate RHYTHM: regular rhythm GI: COMMON NORMALS: Normal to inspection, nondistended, normoactive bowel sounds present, Soft to palpation, non-tender, No hepatosplenomegaly present and no masses PALPATION: Yes Soft to palpation and Yes No hepatosplenomegaly present : COMMON NORMALS: Yes no CVA tenderness BLADDER/KIDNEY EXAM: Yes no CVA tenderness Back/Pelvis: COMMON NORMALS: no CVA tenderness Extremity: COMMON NORMALS: normal to inspection GENERAL: Yes normal exam except as noted OTHER: mild bilateral LE 1+ pitting edema Neuro: RAUL COMA SCALE: document GCS findings Raul coma scale eye opening: Spontaneous Raul coma scale verbal response: Orientated Baxter coma scale motor response: Obey commands Raul coma scale total score: 15 COMMON NORMALS: patient oriented x3, moves all extremities, no focal motor deficits, no sensory deficits noted and gait normal SENSORIUM/ORIENTATION: Yes alert, Yes oriented to person, Yes oriented to place and Yes oriented to time Skin: COMMON NORMALS: no rashes or lesions noted GENERAL SKIN EXAM: no rashes or lesions noted Course Vital Signs: Vital signs: Vital Signs Temperature 98.3 F 05/24/20 10:46 Pulse Rate 58 L 05/24/20 13:15 Respiratory Rate 18 05/24/20 13:15 Blood Pressure 121/73 05/24/20 13:15 Pulse Oximetry 97 05/24/20 13:15 MDM - General Adult MDM Narrative: Medical decision making narrative: Patient clinically appears well. Vitals are completely stable. Dr. Doyle had initially ordered labs on patient. Patient has very mild leukocytopenia and thrombocytopenia. He is hyponatremic at 123. BNP is elevated at 567 which is better than patient's previous baseline labs. CXR appears normal. Spoke to Dr. Doyle who recommends decreasing patient's enalapril hoping this will help his sodium. Strict recommendations that he follows up with PCP this week for recheck. He needs to quarantine at home until he receives COVID results. If positive he will need to quarantine for 14 days. Strict return to ED precautions given. Lab Data: Labs: Lab Results 05/24/20 05/24/20 05/24/20 Range/Units 11:20 11:20 11:20 WBC 3.4 L (4.0-10.0) 10^3/ uL RBC 4.54 (4.1-5.3) 10^6/u L Hgb 13.7 (11.7-16.6) g/dL Hct 39.6 L (42.0-52.0) % MCV 87.2 (80-94) fL MCH 30.2 (28.0-34.0) pg MCHC 34.6 (30.0-36.0) g/dL RDW 12.4 (12.1-15.1) % Plt Count 124 L (130-400) 10^3/c mm MPV 10.7 H (7.4-10.4) fL Neut % (Auto) 72.1 % Lymph % (Auto) 14.5 % [place] % (Auto) 12.5 % Eos % (Auto) 0.3 % Baso % (Auto) 0.3 % Neut # (Auto) 2.4 (1.8-7.7) 10^3/u L Lymph # (Auto) 0.5 L (0.8-4.8) 10^3/u L [place] # (Auto) 0.4 (0.2-0.9) 10^3/u L Eos # (Auto) 0.0 (0.0-0.8) 10^3/u L Baso # (Auto) 0.0 (0.0-0.1) 10^3/u L Nucleated RBC % (a uto) 0 % Nucleated RBCs # 0.0 /100WBC Fibrinogen 334 (184-529) mg/dL D-Dimer 0.33 (0-0.59) ug/mIFE U Sodium 123 L (136-145) mmol/L Potassium 3.6 (3.5-5.1) mmol/L Chloride 85 L (98-107) mmol/L Carbon Dioxide 25 (22-29) mmol/L Anion Gap 16.6 (5-19) BUN 13 (8-23) mg/dL Creatinine 1.3 H (0.7-1.2) mg/dL Glucose 115 (65-115) mg/dL Calculated Osmolal ity 253 L (285-295) mOsm/k g Lactic Acid (0.5-2.2) mmol/L Calcium 8.1 L (8.5-10.5) mg/dL Magnesium 2.0 (1.7-2.3) mg/dL Ferritin 187 (30-400) ng/mL Total Bilirubin 0.4 (0.15-1.2) mg/dL AST 34 (0-40) U/L ALT 22 (0-41) U/L Alkaline Phosphata se 72 (40-130) IU/L C-Reactive Protein 3.5 (0.0-4.9) mg/L NT-Pro-B Natriuret Pep 567 H (0-450) pg/mL Total Protein 6.3 L (6.6-8.7) g/dL Albumin 3.7 (3.5-5.2) g/dL Globulin 2.6 (1.3-4.6) g/dL Nasal/Oral COVID-1 9 PCR Influenza Type A A g (Negative) Influenza Type B A g (Negative) 05/24/20 05/24/20 05/24/20 Range/Units 11:20 11:23 11:23 WBC (4.0-10.0) 10^3/ uL RBC (4.1-5.3) 10^6/u L Hgb (11.7-16.6) g/dL Hct (42.0-52.0) % MCV (80-94) fL MCH (28.0-34.0) pg MCHC (30.0-36.0) g/dL RDW (12.1-15.1) % Plt Count (130-400) 10^3/c mm MPV (7.4-10.4) fL Neut % (Auto) % Lymph % (Auto) % Gladwin % (Auto) % Eos % (Auto) % Baso % (Auto) % Neut # (Auto) (1.8-7.7) 10^3/u L Lymph # (Auto) (0.8-4.8) 10^3/u L [place] # (Auto) (0.2-0.9) 10^3/u L Eos # (Auto) (0.0-0.8) 10^3/u L Baso # (Auto) (0.0-0.1) 10^3/u L Nucleated RBC % (a uto) % Nucleated RBCs # /100WBC Fibrinogen (184-529) mg/dL D-Dimer (0-0.59) ug/mIFE U Sodium (136-145) mmol/L Potassium (3.5-5.1) mmol/L Chloride (98-107) mmol/L Carbon Dioxide (22-29) mmol/L Anion Gap (5-19) BUN (8-23) mg/dL Creatinine (0.7-1.2) mg/dL Glucose (65-115) mg/dL Calculated Osmolal ity (285-295) mOsm/k g Lactic Acid 0.9 (0.5-2.2) mmol/L Calcium (8.5-10.5) mg/dL Magnesium (1.7-2.3) mg/dL Ferritin (30-400) ng/mL Total Bilirubin (0.15-1.2) mg/dL AST (0-40) U/L ALT (0-41) U/L Alkaline Phosphata se (40-130) IU/L C-Reactive Protein (0.0-4.9) mg/L NT-Pro-B Natriuret Pep (0-450) pg/mL Total Protein (6.6-8.7) g/dL Albumin (3.5-5.2) g/dL Globulin (1.3-4.6) g/dL Nasal/Oral COVID-1 9 PCR Positive Influenza Type A A g Negative (Negative) Influenza Type B A g Negative (Negative) Imaging Data^: CXR: Radiologist's impression: [place] [id number] XRay Report Signed Patient: Luis Matos Unit #: [id number] : 1940 Age/Sex: 80 / M ADM Date: 05/24/20 Loc: ER Room/Bed: Attending Dr: Ordering Provider/Ordering MD: Dustin Doyle DO Date of Service: 05/24/20 Procedure(s): XR chest 1V portable [id number] Accession Number(s): [id number] Report Number: [id number] PROCEDURE INFORMATION: Exam: XR Chest, 1 View Exam date and time: 05/24/2020 11:15 AM Age: 80 years old Clinical indication: Cough and other: tested positive for covid; Prior surgery; Surgery date: 6+ months; Surgery type: Angioplasty with stent; Patient HX: Cough/dyspnea/diarrhea; Additional info: Cough dypnea TECHNIQUE: Imaging protocol: XR of the chest Views: 1 view. COMPARISON: CR XR chest 1V portable [id number] 01/29/2020 10:56 AM FINDINGS: Lungs: Interstitial thickening, hyperinflation. No consolidation. Pleural space: Unremarkable. No pleural effusion. No pneumothorax. Heart/Mediastinum: Cardiomegaly. Bones/joints: No acute findings. Old rib fractures. XR/XR chest 1V portable [id number] IMPRESSION: No acute findings. Dictated By: Reagan Harding MD Signed By: Reagan Harding MD Signed Date/Time: 05/24/20 1234 DD/ 1233 EKG Data^: EKG 1: EKG interpretation date: 05/24/20 EKG interpretation time: 11:20 Interpretation: Sinus rhythm Rate 62 Incomplete RBBB No acute ischemic changes noted No changes when compared to EKG performed on 01/27/2020 Computer generated interpretation: Chest X-Ray 05/24/20 10:43 IMPRESSION: No acute findings. Discharge Plan Discharge Patient Disposition: Home, Self-Care Clinical Impression: Exposure to COVID-19 virus, Hyponatremia Condition: Stable Prescriptions: No Action metoprolol tartrate 50 mg tablet 50 mg PO BID 30 Days Qty: 60 RF: 2 amlodipine 5 mg tablet 10 mg PO DAILY 10 Days Qty: 60 RF: 2 clopidogrel 75 mg tablet 75 mg PO DAILY 30 Days Qty: 30 RF: 2 enalapril maleate 20 mg tablet 20 mg PO BID 30 Days Qty: 60 RF: 2 buspirone 5 mg tablet 5 mg PO TID RF: 0 pantoprazole 40 mg tablet,delayed release (DR/EC) 40 mg PO QAM RF: 0 aspirin [Adult Low Dose Aspirin] 81 mg tablet,delayed release (DR/EC) 81 mg PO DAILY RF: 0 nitroglycerin [Nitrostat] 0.4 mg tablet, sublingual 0.4 mg SUBLINGUAL Q5M PRN (Reason: Chest Pain) RF: 0 finasteride 5 mg tablet 5 mg PO DAILY Qty: 90 RF: 3 tamsulosin 0.4 mg capsule 0.4 mg PO BID Qty: 180 RF: 1 furosemide 40 mg tablet 40 mg PO BID 30 Days Qty: 90 RF: 3 amiodarone 200 mg tablet 200 mg PO DAILY 30 Days Qty: 90 RF: 3 isosorbide mononitrate 30 mg tablet extended release 24 hr 30 mg PO QAM Qty: 90 RF: 3 simvastatin 40 mg tablet 40 mg PO DAILY Qty: 90 RF: 3 benzonatate 100 mg Capsule 100 mg PO TID PRN (Reason: Cough) RF: 0 albuterol sulfate 90 mcg/actuation Hfa Aerosol Inhaler 1 inh INHALATION QID PRN (Reason: Shortness Of Breath) RF: 0 fluticasone propionate 50 mcg/actuation [place],Suspension 2 spray INTRANASAL DAILY RF: 0 lidocaine 1.8 % adhesive patch,medicated 2 patch TOPICAL Q24H Qty: 30 RF: 0 potassium gluconate 595 mg (99 mg) Tablet 595 mg PO DAILY RF: 0 Centrum 18-400 mg-mcg Tablet 1 tab PO DAILY RF: 0 Discharge Orders: Discharge Order (Routine); Ordered 05/24/20 Ordered By: Chela Brian Referrals: Johnnie Koroma [Primary Care Provider] - Activity Restrictions/Additional Instructions: DECREASE YOUR ENALAPRIL TO 10MG (1/2 TAB OF WHAT YOU TAKE NOW) TWICE DAILY. Quarantine until you get results of your COVID test. If positive you will need to quarantine for [address] KOROMA THIS WEEK TO RECHECK YOUR SODIUM. Discharge Date/Time: 05/24/20 13:15 Coding Level of Care Code ED Business Machine Operator for Chg Fwd Exam Comprehensive Documented by User: Dustin Doyle DO 05/26/20 14:09 HPI - General Adult General: Chief complaint: Nausea/Vomiting/Diarrhea Stated complaint: DIARRHEA, EXPOSED TO COVID Time Seen by Provider: 05/24/20 10:37 [facility] ED PFS: Medical History (Updated 05/24/20 @ 13:07 by SAHIL Lewis) Acute non-ST segment elevation myocardial infarction ASHD (arteriosclerotic heart disease) BPH (benign prostatic hyperplasia) CAD (coronary artery disease) Carotid stenosis, bilateral Chewing tobacco use CHF (congestive heart failure) Essential hypertension GERD (gastroesophageal reflux disease) Hyperlipidemia IBS (irritable bowel syndrome) Ischemic cardiomyopathy Ischemic cardiomyopathy Nonsustained ventricular tachycardia Paraphimosis SOB (shortness of breath) Spinal stenosis Statin intolerance Systolic heart failure Surgical History S/P angioplasty with stent S/P cervical spinal fusion Family History Other Hypertension Social History Smoking and tobacco status: former smoker Alcohol intake: current Alcohol intake frequency: 0-2 Drinks per Day Alcohol type: beer Household members: spouse Marital status: service: No Current occupational status: retired Current gender identity: Male Course Vital Signs: Vital signs: Vital Signs Temperature 98.3 F 05/24/20 10:46 Pulse Rate 58 L 05/24/20 13:15 Respiratory Rate 18 05/24/20 13:15 Blood Pressure 121/73 05/24/20 13:15 Pulse Oximetry 97 05/24/20 13:15 MDM - General Adult MDM Narrative: Medical decision making narrative: Reviewed chart with SAHIL Lewis agree with disposition and discharge instructions Lab Data: Labs: Lab Results 05/24/20 05/24/20 05/24/20 Range/Units 11:20 11:20 11:20 WBC 3.4 L (4.0-10.0) 10^3/ uL RBC 4.54 (4.1-5.3) 10^6/u L Hgb 13.7 (11.7-16.6) g/dL Hct 39.6 L (42.0-52.0) % MCV 87.2 (80-94) fL MCH 30.2 (28.0-34.0) pg MCHC 34.6 (30.0-36.0) g/dL RDW 12.4 (12.1-15.1) % Plt Count 124 L (130-400) 10^3/c mm MPV 10.7 H (7.4-10.4) fL Neut % (Auto) 72.1 % Lymph % (Auto) 14.5 % Gladwin % (Auto) 12.5 % Eos % (Auto) 0.3 % Baso % (Auto) 0.3 % Neut # (Auto) 2.4 (1.8-7.7) 10^3/u L Lymph # (Auto) 0.5 L (0.8-4.8) 10^3/u L Gladwin # (Auto) 0.4 (0.2-0.9) 10^3/u L Eos # (Auto) 0.0 (0.0-0.8) 10^3/u L Baso # (Auto) 0.0 (0.0-0.1) 10^3/u L Nucleated RBC % (a uto) 0 % Nucleated RBCs # 0.0 /100WBC Fibrinogen 334 (184-529) mg/dL D-Dimer 0.33 (0-0.59) ug/mIFE U Sodium 123 L (136-145) mmol/L Potassium 3.6 (3.5-5.1) mmol/L Chloride 85 L (98-107) mmol/L Carbon Dioxide 25 (22-29) mmol/L Anion Gap 16.6 (5-19) BUN 13 (8-23) mg/dL Creatinine 1.3 H (0.7-1.2) mg/dL Glucose 115 (65-115) mg/dL Calculated Osmolal ity 253 L (285-295) mOsm/k g Lactic Acid (0.5-2.2) mmol/L Calcium 8.1 L (8.5-10.5) mg/dL Magnesium 2.0 (1.7-2.3) mg/dL Ferritin 187 (30-400) ng/mL Total Bilirubin 0.4 (0.15-1.2) mg/dL AST 34 (0-40) U/L ALT 22 (0-41) U/L Alkaline Phosphata se 72 (40-130) IU/L C-Reactive Protein 3.5 (0.0-4.9) mg/L NT-Pro-B Natriuret Pep 567 H (0-450) pg/mL Total Protein 6.3 L (6.6-8.7) g/dL Albumin 3.7 (3.5-5.2) g/dL Globulin 2.6 (1.3-4.6) g/dL Nasal/Oral COVID-1 9 PCR Influenza Type A A g (Negative) Influenza Type B A g (Negative) 05/24/20 05/24/20 05/24/20 Range/Units 11:20 11:23 11:23 WBC (4.0-10.0) 10^3/ uL RBC (4.1-5.3) 10^6/u L Hgb (11.7-16.6) g/dL Hct (42.0-52.0) % MCV (80-94) fL MCH (28.0-34.0) pg MCHC (30.0-36.0) g/dL RDW (12.1-15.1) % Plt Count (130-400) 10^3/c mm MPV (7.4-10.4) fL Neut % (Auto) % Lymph % (Auto) % Gladwin % (Auto) % Eos % (Auto) % Baso % (Auto) % Neut # (Auto) (1.8-7.7) 10^3/u L Lymph # (Auto) (0.8-4.8) 10^3/u L Gladwin # (Auto) (0.2-0.9) 10^3/u L Eos # (Auto) (0.0-0.8) 10^3/u L Baso # (Auto) (0.0-0.1) 10^3/u L Nucleated RBC % (a uto) % Nucleated RBCs # /100WBC Fibrinogen (184-529) mg/dL D-Dimer (0-0.59) ug/mIFE U Sodium (136-145) mmol/L Potassium (3.5-5.1) mmol/L Chloride (98-107) mmol/L Carbon Dioxide (22-29) mmol/L Anion Gap (5-19) BUN (8-23) mg/dL Creatinine (0.7-1.2) mg/dL Glucose (65-115) mg/dL Calculated Osmolal ity (285-295) mOsm/k g Lactic Acid 0.9 (0.5-2.2) mmol/L Calcium (8.5-10.5) mg/dL Magnesium (1.7-2.3) mg/dL Ferritin (30-400) ng/mL Total Bilirubin (0.15-1.2) mg/dL AST (0-40) U/L ALT (0-41) U/L Alkaline Phosphata se (40-130) IU/L C-Reactive Protein (0.0-4.9) mg/L NT-Pro-B Natriuret Pep (0-450) pg/mL Total Protein (6.6-8.7) g/dL Albumin (3.5-5.2) g/dL Globulin (1.3-4.6) g/dL Nasal/Oral COVID-1 9 PCR Positive Influenza Type A A g Negative (Negative) Influenza Type B A g Negative (Negative) EKG Data^: EKG 1: Computer generated interpretation: Chest X-Ray 05/24/20 10:43 IMPRESSION: No acute findings. Discharge Plan Discharge Patient Disposition: Home, Self-Care Clinical Impression: Exposure to COVID-19 virus, Hyponatremia Condition: Stable Prescriptions: No Action metoprolol tartrate 50 mg tablet 50 mg PO BID 30 Days Qty: 60 RF: 2 amlodipine 5 mg tablet 10 mg PO DAILY 10 Days Qty: 60 RF: 2 clopidogrel 75 mg tablet 75 mg PO DAILY 30 Days Qty: 30 RF: 2 enalapril maleate 20 mg tablet 20 mg PO BID 30 Days Qty: 60 RF: 2 buspirone 5 mg tablet 5 mg PO TID RF: 0 pantoprazole 40 mg tablet,delayed release (DR/EC) 40 mg PO QAM RF: 0 aspirin [Adult Low Dose Aspirin] 81 mg tablet,delayed release (DR/EC) 81 mg PO DAILY RF: 0 nitroglycerin [Nitrostat] 0.4 mg tablet, sublingual 0.4 mg SUBLINGUAL Q5M PRN (Reason: Chest Pain) RF: 0 finasteride 5 mg tablet 5 mg PO DAILY Qty: 90 RF: 3 tamsulosin 0.4 mg capsule 0.4 mg PO BID Qty: 180 RF: 1 furosemide 40 mg tablet 40 mg PO BID 30 Days Qty: 90 RF: 3 amiodarone 200 mg tablet 200 mg PO DAILY 30 Days Qty: 90 RF: 3 isosorbide mononitrate 30 mg tablet extended release 24 hr 30 mg PO QAM Qty: 90 RF: 3 simvastatin 40 mg tablet 40 mg PO DAILY Qty: 90 RF: 3 benzonatate 100 mg Capsule 100 mg PO TID PRN (Reason: Cough) RF: 0 albuterol sulfate 90 mcg/actuation Hfa Aerosol Inhaler 1 inh INHALATION QID PRN (Reason: Shortness Of Breath) RF: 0 fluticasone propionate 50 mcg/actuation [place],Suspension 2 spray INTRANASAL DAILY RF: 0 lidocaine 1.8 % adhesive patch,medicated 2 patch TOPICAL Q24H Qty: 30 RF: 0 potassium gluconate 595 mg (99 mg) Tablet 595 mg PO DAILY RF: 0 Centrum 18-400 mg-mcg Tablet 1 tab PO DAILY RF: 0 Discharge Orders: Discharge Order (Routine); Ordered 05/24/20 Ordered By: Chela Brian Referrals: Johnnie Koroma [Primary Care Provider] - Activity Restrictions/Additional Instructions: DECREASE YOUR ENALAPRIL TO 10MG (1/2 TAB OF WHAT YOU TAKE NOW) TWICE DAILY. Quarantine until you get results of your COVID test. If positive you will need to quarantine for [address] KOROMA THIS WEEK TO RECHECK YOUR SODIUM. Discharge Date/Time: 05/24/20 13:15 Coding Level of Care Code ED Business Machine Operator for Avig Fwd Exam Comprehensive
[2020-05-24] MEDS: ondansetron 2 mg/ML SDV 2 mL 4 MG IV (11:18)
[2020-05-24 11:34] LABS: Basophils % 0.3 %; Eosinophils % 0.3 %; Hematocrit 39.6 % (42.0-52.0); Hemoglobin 13.7 g/dL (11.7-16.6); Lymphocytes # 0.5 10^3/uL (0.8-4.8); Lymphocytes % 14.5 %; Mean Corpuscular HGB Conc 34.6 g/dL (30.0-36.0); Mean Corpuscular Hemoglobin 30.2 pg (28.0-34.0); Mean Corpuscular Volume 87.2 fL (80-94); Mean Platelet Volume 10.7 fL (7.4-10.4); Monocytes # 0.4 10^3/uL (0.2-0.9); Monocytes % 12.5 %; Neutrophils # 2.4 10^3/uL (1.8-7.7); Neutrophils % 72.1 %; Nucleated Red Blood Cells % 0 %; Platelet Count 124 10^3/cmm (130-400); Red Blood Count 4.54 10^6/uL (4.1-5.3); Red Cell Distribution Width 12.4 % (12.1-15.1); White Blood Count 3.4 10^3/uL (4.0-10.0)
[2020-05-24 11:54] LABS: Fibrinogen 334 mg/dL (184-529)
[2020-05-24 11:57] LABS: D Dimer 0.33 ug/mIFEU (0-0.59)
[2020-05-24 12:01] LABS: Lactic Sepsis W/Reflex 0.9 mmol/L (0.5-2.2)
[2020-05-24 12:05] LABS: Influenza A by IFA Negative (Negative); Influenza B by IFA Negative (Negative)
[2020-05-24 12:11] LABS: Alanine Aminotransferase 22 U/L (0-41); Albumin Level 3.7 g/dL (3.5-5.2); Alkaline Phosphatase 72 IU/L (40-130); Anion Gap 16.6 (5-19); Aspartate Amino Transferase 34 U/L (0-40); Blood Urea Nitrogen 13 mg/dL (8-23); C Reactive Protein 3.5 mg/L (0.0-4.9); Calcium 8.1 mg/dL (8.5-10.5); Carbon Dioxide 25 mmol/L (22-29); Chloride 85 mmol/L (98-107); Ferritin 187 ng/mL (30-400); Globulin 2.6 g/dL (1.3-4.6); Glucose 115 mg/dL (65-115); NT Pro B Type Natriuretic Pept 567 pg/mL (0-450); Osmolality Calculated 253 mOsm/kg (285-295); Potassium 3.6 mmol/L (3.5-5.1); Sodium 123 mmol/L (136-145); Total Bilirubin 0.4 mg/dL (0.15-1.2); Total Protein 6.3 g/dL (6.6-8.7)
[2020-05-24 13:15] VITALS: BP 121/73; PULSE 58; RESP 18; O2SAT 97
--- NOTE | 2020-05-24 14:15 | DCPLANNER ---
tour manager was asked to schedule a follow up appointment for patient with Dr. Raza. tour manager called [facility], spoke with Erica, an appointment was scheduled for May at 9:45 with , video chat. Clinic will call patient with appointment information and instructions.
--- NOTE | 2020-05-25 11:18 | DCPLANNER ---
Patients appointment scheduled for 05.25.[address] Raza was cancelled due to physicians request.
[2020-05-25 12:40] LABS: Coronavirus Lab Test PTC Positive
== END 2020-05-24 13:15 | disposition home or self-care (01) ==
PROVIDERS: Family Medicine; Emergency Provider Physician Assistant; PCP Family Medicine
DX: E87.1 Hypo-osmolality and hyponatremia (principal); Z20.828 Contact with and (suspected) exposure to other viral communicable diseases; Z79.02 Long term (current) use of antithrombotics/antiplatelets; Z79.82 Long term (current) use of aspirin; I25.10 Atherosclerotic heart disease of native coronary artery without angina pectoris; I11.0 Hypertensive heart disease with heart failure; E78.5 Hyperlipidemia, unspecified; I50.20 Unspecified systolic (congestive) heart failure; Z87.891 Personal history of nicotine dependence
CPT/HCPCS: 12345; 71045; 80053; 82728; 83605; 83735; 83880; 85025; 85378; 85384; 86140; 87040; 87635; 87804; 93005; 96374; 99283; 99284; J2405

== ENCOUNTER 2021-01-15 10:21 | Outpatient (CLI) | payer MEDICARE, SELFPAY ==
--- NOTE | 2021-01-15 11:00 | USCV_ITS ---
Luis Matos Age: 80 Gender: M : 1940 Exam Date: 01/15/2021 10:48 Ordering Phys: Johanna Freeman Technologist: Murray Cool Exam Location[place] [facility] [place]: HISTORY: Lower extremity swelling. PROCEDURES: FINDINGS: All deep veins demonstrated compressibility without evidence of intraluminal thrombus or increased echogenicity. Spectral analysis of Doppler signals demonstrates normal response to compression maneuvers indicating patency without obstruction. Reflux determinations were made with the patient in the dependent position, the weight being on the contralateral leg. No significant venous reflux was CONCLUSIONS No evidence of DVT in the above-mentioned identifiable veins. No significant venous reflux Patent normal caliber superficial veins bilaterally Dr Fritz Woodruff MD FAC (Electronically Signed) Final Date: 15 January 2021 18:34 S
== END 2021-01-15 10:22 | disposition home or self-care (01) ==
LOC: US 10:21
PROVIDERS: PCP Family Medicine; Visit Provider Nurse Practitioner Family
DX: R60.0 Localized edema (principal)
CPT/HCPCS: 93970